=== PATIENT | male | born 1960 | race African-American/Black ===

== ENCOUNTER 2017-04-29 13:08 | Inpatient (IN) ==
--- NOTE | 2017-04-29 14:50 | XRay Report ---
History short of breath Comparison 05/23/2016 The heart is enlarged Neel there is increasing diffuse hazy right greater than left pulmonary opacities and moderate right pleural effusion. Left base is underpenetrated Impression: Right greater than left effusions and hazy underlying infiltrates or asymmetric edema. PROCEDURE INTERPRETED AT [facility] DEPARTMENT OF RADIOLOGY Final Report Signed by: Dr. Lyndsey Bain
[2017-04-29 15:01] LABS: Basophils % 0.6 % (0.0-0.8); Eosinophils # 0.1 10*3/uL (0.0-0.87); Eosinophils % 1.5 % (0.00-10.9); Hematocrit 26.6 VOL% (42.0-52.0); Hemoglobin 8.7 GM/DL (14.0-18.0); Immature Granulocytes % 0.6 %; Immature Granulocytes Absolute 0.03 #; Lymphocytes # 0.6 10*3/uL (1.4-4.0); Lymphocytes % 10.9 % (21.2-54.2); Mean Corpuscular HGB Conc 32.7 GM/DL (32-36); Mean Corpuscular Hemoglobin 22 PG (27-34); Mean Corpuscular Volume 66.7 FL (87-102); Mean Platelet Volume 10.3 FL (9.6-12.0); Monocytes # 0.8 10*3/uL (0.11-0.8); Monocytes % 14.2 % (1.7-12.7); Neutrophils # 3.9 10*3/uL (1.4-7.4); Neutrophils % 72.2 % (38.7-73.9); Platelet Count 204 T/CUMM (130-400); Red Blood Count 3.99 MC/CUMM (3.8-5.5); Red Cell Distribution Width 17.7 % (9.3-17.3); White Blood Count 5.4 T/CUMM (4-12)
[2017-04-29 15:17] LABS: Giant Platelets Few; Hypochromasia 1+; Platelet Estimate Adequate
[2017-04-29 15:18] LABS: Microcytosis Slight; Ovalocytes Slight
[2017-04-29 15:37] LABS: Albumin 2.2 G/DL (3.4-5.0); Bilirubin,Total 0.5 MG/DL (0.2-1.0); Total Protein 6.1 G/DL (6.4-8.3)
[2017-04-29 15:38] LABS: Osmolality,Calculated 289.7 MOS/KG (273-304)
--- NOTE | 2017-04-29 15:52 | Emergency Department Note ---
IAurelio Emily, am scribing for, and in the presence of, Monroe Santacruz MD 14:20. Neeta Varner Phillip K, MD, personally performed the services described in this documentation, ascribed by Shawna Carey in my presence, and it is both accurate and complete [phone] . Arrival - Arrival Chief Complaint: Non-Specific Stated Complaint: pulmonary edema ED Nursing Triage Note: c/o swelling in lt arm onset friday night. pt also has swelling to testicles onset in january Mode of Arrival: Ambulatory Limitations: No Limitations Source: Patient Time Seen by Provider: 04/29/17 14:05 - History of Present Illness HPI Narrative: Pt is a 56 y/o male who came to ED with c/o swelling in extremities, abdomen, and genitals diffusely that started suddenly on Friday. Pt called Dr. Gordon and was told to come to ED. Pt states he is taking lasix and has mild SOB currently. Pt was seen in 2015 with SOB and thought was DVT but results showed by Dr. Gordon: Pneumonia versus CHF. He is symptomatically improved with antibiotics. * Chronic renal failure, stage IV. Renal ultrasound shows increased echogenicity. No obstruction. * Probable nephrotic syndrome. Serum creatinine 1.5. This likely accounts for much of his peripheral edema and pleural effusions. 24 hour urine pending * CHF. Ejection fraction 30-35%. PMHx of NIDDM, Asthma. [place] Ch in May while hospitalized. Onset (ago): day(s) Consistency: constant Severity: moderate Severity scale (1-10): 6 Quality: fullness Allergies/Adverse Reactions: Allergies Allergy/AdvReac Type Severity Reaction Status Date / Time No Known Allergies Allergy Verified 05/21/16 10:15 Home Medications: Home Medications Medication Instructions Recorded Confirmed Type Carvedilol [Coreg] 6.25 mg PO BID #60 tablet 05/25/16 04/29/17 Rx Aspirin 325 mg PO QAM 04/29/17 04/29/17 History Cinnamon Bark [Cinnamon] 1,000 mg PO QAM 04/29/17 04/29/17 History Ferrous Sulfate 325 mg PO QAM 04/29/17 04/29/17 History Furosemide Tab [Lasix Tab] 80 mg PO DAILY 04/29/17 04/29/17 History Hydralazine HCl 50 mg PO TID 04/29/17 04/29/17 History Isosorbide Mononitrate [Imdur] 30 mg PO DAILY 04/29/17 04/29/17 History Turmeric/Turmeric Ext/Pepr Ext 1 each PO QAM 04/29/17 04/29/17 History [Turmeric Complex 500 mg Cap] sitaGLIPtin [Januvia] 25 mg PO DAILY 04/29/17 04/29/17 History Review of System - Review of System 12 point system: reviewed and no additional remarkable complaints except as stated - Review of System Constitutional: Absent: chills, fever Respiratory: Present: respiratory distress (mild SOB) Cardiovascular: Present: edema (extremities, abdomen and genitals). Absent: chest pain Gastrointestinal: Absent: abdominal pain, nausea, vomiting Musculoskeletal: Absent: arm pain, back pain Skin: Absent: rash Neurological: Absent: headache Medical,Surgical,& Family Hx - Medical History Cardio: No history of: Cardiac Dysrhythmia, Cerebrovascular Disease, CAD, Hypertension, [place], PVD, Valvular Heart Disease, Cardiovascular Problems Psychological: No history of: Anxiety Disorders, Depression Neurology: No history of: Cerebrovascular Accident, Migraine, Parkinson's Disease, Peripheral Neuropathy, Seizures, TIA HEENT: No history of: Ear Problem Endocrine: History of: Diabetes Mellitus (NIDDM) (PO metformin ) Rheumatology: No history of;: Fibromyalgia, Gout, Rheumatoid Arthritis, Systemic Lupus Erythematosus Respiratory: History of: Asthma, Pneumonia No history of: COPD, Obstructive Sleep Apnea, Pulmonary Embolism Renal: No history of: Dialysis, Renal Failure, Renal Problems Genitourinary: No history of: Kidney Stones, Prostate Problems, Problems Gastrointestinal: No history of: Bowel Obstruction, GERD, Hepatitis, Liver Problems Musculoskeletal: No history of: Back/Neck Problems, Degenerative Disk Disease, Osteoporosis Hematology: No history of: Blood Transfusion Reaction, Bleeding Problems, Clotting Problems, Sickle Cell Disease, Hematologic Cancer Other: No history of: Anesthesia Reactions, Anaphylaxis, Cancer - Surgical History Abdominal Surgeries: Patient denies: Abdominal Surgery - Family History Family History: Reports;: Family Diabetes (mother) - Social History Smoking Status: Never smoker Frequency of Alcohol Use: None Type of Drug Use: None Marital Status: Single Lives With:: Alone Functional capacity: independent ambulation Exam Vital Signs: Vital Signs Temperature 97.5 F L 04/29/17 13:15 Pulse Rate 92 H 04/29/17 13:15 Respiratory Rate 22 04/29/17 14:10 Blood Pressure 153/84 04/29/17 13:15 O2 Sat by Pulse Oximetry 96 04/29/17 13:15 - General General appearance: alert, in no apparent distress - Head Head exam: Present: atraumatic, normocephalic - Eye Eye exam: Present: PERRL, EOMI - ENT ENT exam: Present: mucous membranes moist. Absent: mucous membranes dry - Neck Neck exam: Present: full ROM - Chest Chest inspection: Present: symmetric chest wall rise - Respiratory Respiratory exam: Present: rales (bibasliar rales on right). Absent: normal lung sounds bilaterally (decreased breath sounds on right) - Cardiovascular Cardiovascular exam: Present: regular rate, normal rhythm, normal heart sounds - Extremities Exam Extremities exam: Present: full ROM, pedal edema (+4 pitting edema at bilateral lower extremities to waist, abdominal wall, penis, and scrotum) - Neurological Exam Neurological exam: Present: alert, oriented X3, CN II-XII intact. Absent: motor sensory deficit - Psychiatric Psychiatric exam: Present: normal affect, normal mood - Skin Skin exam: Present: warm, dry Course Course Narrative: Patient discussed with the hospitalist. Results - Labs CBC & BMP: 04/29/17 14:45 04/29/17 14:45 Lab Results: I have reviewed the patients labs Labs: Laboratory Tests 04/29/17 14:45 WBC 5.4 RBC 3.99 Hgb 8.7 L Hct 26.6 L MCV 66.7 L MCH 22 L RDW 17.7 H Plt Count 204 Lymph % (Auto) 10.9 L [place] % (Auto) 14.2 H Lymph # (Auto) 0.6 L Platelet Estimate Adequate Giant Platelets Few Immature Plt Fraction 2.6 Hypochromasia 1+ Microcytosis Slight Ovalocytes Slight Laboratory Tests 04/29/17 04/29/17 14:45 14:45 Sodium 138 Potassium 5.0 Chloride 108 H Carbon Dioxide 22 Anion Gap 13.0 BUN 57 H Creatinine 4.40 H GFR Calculation 22 Calcium 8.0 L ALT 12 L Alkaline Phosphatase 120 H B-Natriuretic Peptide 2804 H Total Protein 6.1 L Albumin 2.2 L Globulin 3.9 H Albumin/Globulin Ratio 0.5 L - Diagnostic Findings Procedure: Chest x-ray: report reviewed by me (Right greater than left effusions and hazy underlying infiltrates or asymmetric edema.) Disposition Clinical Impression: Nephrotic syndrome, Anasarca, Chronic renal failure, stage 4 (severe), Hypoalbuminemia Case discussed with: patient Disposition: Still a Patient Condition: Guarded Additional Instructions: Admit to the hospitalist.
--- NOTE | 2017-04-29 16:53 | Hospitalist History & Physical ---
<Hazel Estevez - Last Filed: 04/29/17 16:46> Assessment and Plan (1) Chronic renal failure, stage 4 (severe) Status: Acute Assessment and plan: Consult nephrology. Avoid nephrotoxic agents. Daily bmps. Current Visit: Yes (2) Non-insulin dependent type 2 diabetes mellitus Status: Chronic Assessment and plan: accuchecks achs. SSI. Current Visit: No (3) Anasarca Status: Acute Current Visit: Yes (4) Hypertension Status: Chronic Assessment and plan: Restart home meds. Current Visit: No Qualifiers: Hypertension type: essential hypertension Qualified Code(s): I10 - Essential (primary) hypertension (5) CHF (congestive heart failure) Status: Acute Assessment and plan: BNP 2804. Consult cardiology. Careful diuresis because of renal failure. Recheck in the am. Strict I&Os. Current Visit: Yes (6) Peripheral edema Status: Chronic Assessment and plan: Current Visit: No History of Present Illness Chief complaint: swelling History of present illness: Mr. Mondragon is a 56 year old black male with a history of hypertension, dm, chf , chronic renal failure, and pneumonia that presented to the ED today with complaints of arm, testicle, and bilateral legs. Pt. is accompanied by his sister. Patient states he has been experiencing swelling in his extremities since December, genitals since January, and arm since yesterday. Pt. states he was seen by his PCP Dr. Hinkle yesterday and he told him to see his balance wheel facer Dr. Gordon. He called Dr. Gordon today and the patient was directed to come to the ED. Pt. states he was seen by Dr. Gordon last week and his creatinine was 3.1. Today's patients only complaint is the swelling which he states is "uncomfortable". Pt. reports mild shortness of breath on exertion. Pt. denies all other symptoms. CXR showed 'right greater than left effusion and hazy underlying infilrates or asymmetric edema'. Labs revealed h&h of 8.7/26.6, bun/ creatinine 57/4.4, and BNP of 2804. Pt's case has been discussed with Dr. De León and pt will be admitted to our service. Home Medications Medication Instructions Recorded Confirmed Type Carvedilol [Coreg] 6.25 mg PO BID #60 tablet 05/25/16 04/29/17 Rx Aspirin 325 mg PO QAM 04/29/17 04/29/17 History Cinnamon Bark [Cinnamon] 1,000 mg PO QAM 04/29/17 04/29/17 History Ferrous Sulfate 325 mg PO QAM 04/29/17 04/29/17 History Furosemide Tab [Lasix Tab] 80 mg PO BID 04/29/17 04/29/17 History Hydralazine HCl 50 mg PO TID 04/29/17 04/29/17 History Isosorbide Mononitrate [Imdur] 30 mg PO DAILY 04/29/17 04/29/17 History Turmeric/Turmeric Ext/Pepr Ext 1 each PO QAM 04/29/17 04/29/17 History [Turmeric Complex 500 mg Cap] sitaGLIPtin [Januvia] 25 mg PO DAILY 04/29/17 04/29/17 History Allergies Allergy/AdvReac Type Severity Reaction Status Date / Time No Known Allergies Allergy Verified 05/21/16 10:15 Medical,Surgical,& Family Hx - Medical History Cardio: No history of: Cardiac Dysrhythmia, Cerebrovascular Disease, CAD, Hypertension, [place], PVD, Valvular Heart Disease, Cardiovascular Problems Psychological: No history of: Anxiety Disorders, Depression Neurology: No history of: Cerebrovascular Accident, Migraine, Parkinson's Disease, Peripheral Neuropathy, Seizures, TIA HEENT: No history of: Ear Problem Endocrine: History of: Diabetes Mellitus (NIDDM) (PO metformin ) Rheumatology: No history of;: Fibromyalgia, Gout, Rheumatoid Arthritis, Systemic Lupus Erythematosus Respiratory: History of: Asthma, Pneumonia No history of: COPD, Obstructive Sleep Apnea, Pulmonary Embolism Renal: No history of: Dialysis, Renal Failure, Renal Problems Genitourinary: No history of: Kidney Stones, Prostate Problems, Problems Gastrointestinal: No history of: Bowel Obstruction, GERD, Hepatitis, Liver Problems Musculoskeletal: No history of: Back/Neck Problems, Degenerative Disk Disease, Osteoporosis Hematology: No history of: Blood Transfusion Reaction, Bleeding Problems, Clotting Problems, Sickle Cell Disease, Hematologic Cancer Other: No history of: Anesthesia Reactions, Anaphylaxis, Cancer - Surgical History Abdominal Surgeries: Patient denies: Abdominal Surgery - Family History Family History: Reports;: Family Diabetes (mother) - Social History Smoking Status: Never smoker Frequency of Alcohol Use: None Type of Drug Use: None Exam - Constitutional Vitals: Period Temp Pulse Resp BP Sys/Gray Pulse Ox Last 24 Hr 97.5 F-97.5 F 78-92 18-22 127-160/83-99 95-100 General appearance: no acute distress, over weight - Head Head exam: Present: normal inspection, normocephalic - Eye Eye exam: Present: EOMI. Absent: scleral icterus Pupils: Present: MAGI. Absent: fixed - Respiratory Respiratory exam: Present: clear to auscultation bilaterally. Absent: wheezes - Cardiovascular Cardiovascular exam: Present: JVD - GI/Abdominal GI/Abdominal exam: Present: normal bowel sounds, firm. Absent: tenderness, soft - Extremities Exam Extremities exam: Present: full ROM, edema - Neurological Exam Neurological exam: Present: alert, oriented X3 - Psychiatric Psychiatric exam: Present: normal affect, normal mood - Skin Skin exam: Present: normal color, warm, dry Results - Labs CBC & BMP: 04/29/17 14:45 04/29/17 14:45 Lab Results: I have reviewed the past 24 hour labs <Wilbert De León - Last Filed: 04/30/17 07:19> History of Present Illness History of present illness: Mr. Mondragon is a 56 year old male who is being admitted to the hospital with acute on chronic right and left heart congestive heart failure and acute on chronic renal failure. I have interviewed and examined the patient and reviewed all available laboratory and radiographic test results. I agree with the assessment and plans of Leila GARCIA. Mr. Mondragon is being admitted to the hospital. He will be treated with intravenous furosemide. Cardiology and nephrology have been consulted. Exam - Constitutional Vitals: Period Temp Pulse Resp BP Sys/Gray Pulse Ox Last 24 Hr 97.4 F-97.8 F 78-95 18-22 127-168/83-106 94-100 Results - Labs CBC & BMP: 04/30/17 04:48 04/30/17 04:48
[2017-04-29 17:49] LABS: Apearance,Urine CLEAR (Clear); Bacteria,Urine Occasional /HPF (Few); Bilirubin,Urine Negative (Negative); Blood, Urine Small mg/dL (Negative); Glucose,Urine (UA) 150 mg/dL (Negative); Ketones,Urine Negative (Negative); Mucus,Urine Occasional /LPF (Occasional); Nitrite,Urine Negative (Negative); Protein,Urine >=500 MG/DL; RBC,Urine 21 /HPF (0-4); Squamous Epithelial Cell,Urine Occasional /HPF (0-10); Urine Color Yellow (Yellow); Urine Specific Gravity 1.011 (1.001-1.035); Urine Urobilinogen < 2.0 EU/DL (0.2-1.0); WBC,Urine 1 /HPF (0-6)
[2017-04-29] MEDS ORDERED: ONDANSETRON 4 MG/2 ML VIAL IV PRN (18:05)
[2017-04-29] MEDS ORDERED: DEXTROSE 50% 25 GM/50 ML VIAL IV PRN ×2 (18:05)
[2017-04-29] MEDS ORDERED: GLUCAGON 1 MG VIAL IM PRN ×2 (18:05)
[2017-04-29] MEDS: FUROSEMIDE 40 MG/4 ML VIAL IV SCH (18:17)
[2017-04-29] MEDS: INSULIN LISPRO 100 UNIT/ML SUBCUT SCH (20:06)
[2017-04-29] MEDS: CARVEDILOL 6.25 MG TABLET PO SCH (20:07)
[2017-04-30 05:17] LABS: Basophils % 0.6 % (0.0-0.8); Eosinophils # 0.1 10*3/uL (0.0-0.87); Eosinophils % 1.8 % (0.00-10.9); Hematocrit 26.1 VOL% (42.0-52.0); Hemoglobin 8.3 GM/DL (14.0-18.0); Immature Granulocytes % 0.6 %; Immature Granulocytes Absolute 0.03 #; Lymphocytes # 0.6 10*3/uL (1.4-4.0); Lymphocytes % 12.3 % (21.2-54.2); Mean Corpuscular HGB Conc 31.8 GM/DL (32-36); Mean Corpuscular Hemoglobin 21 PG (27-34); Mean Corpuscular Volume 67.4 FL (87-102); Mean Platelet Volume 10.7 FL (9.6-12.0); Monocytes # 0.9 10*3/uL (0.11-0.8); Monocytes % 16.6 % (1.7-12.7); Neutrophils # 3.5 10*3/uL (1.4-7.4); Neutrophils % 68.1 % (38.7-73.9); Platelet Count 222 T/CUMM (130-400); Red Blood Count 3.87 MC/CUMM (3.8-5.5); Red Cell Distribution Width 17.7 % (9.3-17.3); White Blood Count 5.1 T/CUMM (4-12)
[2017-04-30] MEDS: FUROSEMIDE 40 MG/4 ML VIAL IV SCH ×4 (05:20→21:31)
[2017-04-30 05:56] LABS: Eosinophils 5 % (0-10); Lymphocytes 8 % (20-55); Segmented Neutrophils 77 % (50-85); Total Cells Counted 100
[2017-04-30 05:57] LABS: Burr Cells Slight; Elliptocytes Few; Giant Platelets Few; Hypochromasia 1+; Microcytosis Slight; Platelet Estimate Adequate
[2017-04-30 06:02] LABS: Calcium 8.5 MG/DL (8.5-10.1); Magnesium 1.9 MG/DL (1.8-2.4); Osmolality,Calculated 292.4 MOS/KG (273-304); Potassium 4.4 MMOL/L (3.5-5.1); Risk Ratio 3.61; Thyroid Stimulating Hormone 2.18 uIU/ml (0.358-3.74); VLDL CHOLESTEROL 10.2 MG/DL
--- NOTE | 2017-04-30 06:51 | Physician Query Form ---
CLICK EDIT DOCUMENT TO SELECT QUERY ANSWER --> OK --> SIGN Gale Khan RN, CCDS Certified Clinical Lead Military Analyst W) [phone] (f) [phone] [email or web address]: Make your selection(s) from the choices in EACH section by typing an "x" and enter comments in the comment section. Please use your independent medical judgment in providing your response. This request does not imply that any particular answer is desired or expected. CLINICAL INDICATORS: (Providers should not edit this section) The medical record indicates that the patient was admitted with CHF (Acute), BNP of 2804#, "c/o swelling in extremities", "Mild SOB", AND the patient was treated with IV Lasix. Please provide further specificity regarding CHF. ACUITY: ( ) Acute ( ) Chronic ( X) Acute on Chronic ( ) Clinically unable to determine TYPE: ( ) Systolic (HFrEF - heart failure with reduced systolic function/EF) ( ) Diastolic (HFpEF - heart failure with preserved systolic function/EF) ( X) Combined Systolic/Diastolic ( ) Other, please specify: ( ) Clinically unable to determine ( ) Past Medical History of Systolic CHF ( ) Past Medical History of Diastolic CHF ( ) Clinically unable to determine COMMENTS: PLEASE ALSO DOCUMENT RESPONSE IN PROGRESS NOTES AND/OR DISCHARGE SUMMARY Use of terms such as suspected, likely, or probable (associated with a specific diagnosis that is being evaluated, monitored, or treated as if it exists) are acceptable and can be restated in the discharge summary if not ruled out. MTDD
--- NOTE | 2017-04-30 08:28 | Ultrasound Report ---
History is scrotal edema Grayscale, spectral Doppler, and color flow analysis performed and interpreted There is a more diffuse bilateral scrotal edema. Testicular size and echotexture is normal bilaterally No intratesticular mass is seen The epididymides are normal in size There is symmetric color flow to both testicles Impression: Marked diffuse scrotal edema without testicular abnormality seen PROCEDURE INTERPRETED AT [facility] DEPARTMENT OF RADIOLOGY Final Report Signed by: Dr. Lyndsey Bain
[2017-04-30] MEDS ORDERED: ASPIRIN 325 MG TABLET PO SCH (09:00)
[2017-04-30] MEDS: ISOSORBIDE MONONITRATE 30 MG TABLET PO SCH (09:20)
[2017-04-30] MEDS: CARVEDILOL 6.25 MG TABLET PO SCH (09:20)
[2017-04-30] MEDS: FERROUS SULFATE 325 MG TABLET PO SCH (09:20)
[2017-04-30] MEDS: INSULIN LISPRO 100 UNIT/ML SUBCUT SCH ×4 (09:21→21:57)
--- NOTE | 2017-04-30 09:25 | Hospitalist Progress Note ---
Assessment and Plan (1) Systolic CHF, acute on chronic Status: Acute Assessment and plan: His severe acute on chronic systolic congestive heart failure. I have increased his furosemide to 80 mg intravenous every 8 hours. He is being followed by cardiology. He will undergo a repeat echocardiogram today. Current Visit: Yes (2) Anemia Status: Chronic Assessment and plan: His hematocrit and hemoglobin are 26.1 and 8.3 respectively. They are minimally changed from yesterday. Current Visit: No Qualifiers: Anemia type: iron deficiency (3) Non-insulin dependent type 2 diabetes mellitus Status: Chronic Assessment and plan: His glucose today is 67. He is being treated with sliding scale regular insulin coverage. Current Visit: No (4) Chronic renal failure, stage 4 (severe) Status: Acute Assessment and plan: His BUN and creatinine are 58 and 4.3 respectively today. These are minimally changed from yesterday. Current Visit: Yes (5) Cardiomyopathy Status: Acute Assessment and plan: He reportedly has a previously demonstrated LVEF of 25%. Current Visit: No Qualifiers: Cardiomyopathy type: unspecified Qualified Code(s): I42.9 - Cardiomyopathy , unspecified (6) Anasarca Status: Acute Assessment and plan: Is severe edema involving both lower extremities and his scrotum. This is almost certainly secondary to right-sided congestive heart failure. His serum albumin is 2.2 which most probably exacerbates the problem. Current Visit: Yes Hospitalist: Subjective Interval history: Patient has been undergoing diuresis with intravenous furosemide. He states that he feels somewhat better than yesterday. He underwent a scrotal ultrasound confirming that his scrotum has severe edema with no other discernible lesions. He has been seen in consultation by cardiology who will follow him with me. Exam - Constitutional Vitals: Period Temp Pulse Resp BP Sys/Gray Pulse Ox Last 24 Hr 97.4 F-97.8 F 78-95 18-22 127-168/83-106 94-100 General appearance: no acute distress - Head Head exam: Present: normal inspection - Neck Neck exam: Present: normal inspection - Respiratory Respiratory exam: Present: other (Decreased bibasilar breath sounds.) - Cardiovascular Cardiovascular exam: Present: regular rate and rhythm - GI/Abdominal GI/Abdominal exam: Present: normal bowel sounds, soft, other (Nontender with no palpable masses or hepatosplenomegaly.) - Extremities Exam Extremities exam: Present: edema, other (There is persistent severe scrotal edema.) - Skin Skin exam: Present: normal color, warm, intact Results - Labs CBC & BMP: 04/30/17 04:48 04/30/17 04:48
[2017-04-30] MEDS: ENOXAPARIN 30 MG/0.3 ML SYRINGE SUBCUT SCH (09:27)
[2017-04-30] MEDS ORDERED: CARVEDILOL 6.25 MG TABLET PO ONE (09:43)
--- NOTE | 2017-04-30 10:14 | Order Completion Report ---
See report scanned to EMR
--- NOTE | 2017-04-30 11:05 | Cardiology Consult Note ---
Anusha Varner April RN, am scribing for, and in the presence of, Martita Avelar NP 09:48. Assessment and Plan - Time spent with patient Time spent with patient: Greater than 30 minutes (Due to assessment, planning, documentation, medication review) (1) Dyslipidemia Status: Chronic Assessment and plan: SEE PLAN OF CARE LISTED BELOW Current Visit: Yes (2) Obesity (BMI 30-39.9) Status: Chronic Assessment and plan: SEE PLAN OF CARE LISTED BELOW Current Visit: Yes (3) Hypertension Status: Chronic Assessment and plan: SEE PLAN OF CARE LISTED BELOW Current Visit: No Qualifiers: Hypertension type: essential hypertension Qualified Code(s): I10 - Essential (primary) hypertension (4) Non-insulin dependent type 2 diabetes mellitus Status: Chronic Assessment and plan: SEE PLAN OF CARE LISTED BELOW Current Visit: No (5) Chronic renal failure, stage 4 (severe) Status: Chronic Assessment and plan: SEE PLAN OF CARE LISTED BELOW Current Visit: Yes (6) Cardiomyopathy Status: Acute Assessment and plan: SEE PLAN OF CARE LISTED BELOW Current Visit: No Qualifiers: Cardiomyopathy type: unspecified Qualified Code(s): I42.9 - Cardiomyopathy , unspecified (7) Anasarca Status: Acute Current Visit: Yes (8) CHF (congestive heart failure) Status: Acute Assessment and plan: SEE PLAN OF CARE LISTED BELOW Current Visit: Yes Qualifiers: Congestive heart failure type: combined Congestive heart failure chronicity : acute on chronic Qualified Code(s): I50.43 - Acute on chronic combined systolic (congestive) and diastolic (congestive) heart failure History of Present Illness - Data of Consult Patient: known to practice within the last 3 years Consult date: 04/29/17 Requesting Physician: Hazel Estevez Primary care physician: Trisha Almonte - Consult Narrative Reason for consult: CHF History of present illness: VALET ATTENDANT: DR. CH PCP: DR. ALMONTE MARBLE SETTER HELPER: DR. ANTON I have seen and evaluated this patient with Kylie Tavares RN. Mrs. Tavares has acted as a scribe for me today SUMMARY: Mr. Mondragon, 56BM, has risk factors significant for: Hypertension, dyslipidemia, diabetes, obesity and sedentary lifestyle. History of chronic renal failure (stage IV), cardiomyopathy, mitral regurgitation. Admitted April 29, 2017 with anasarca including third spacing up to the lower abdominal region. This past Friday, patient reports his right arm began to swell. This is new. He has been experiencing scrotal edema since January 2017. Patient reports he always has bilateral lower extremity edema however not to this extent. On examination, he has significant swelling and possible third spacing up to his lower abdominal area. Patient was seen in cardiology clinic by Dr. Ch February 26, 2017. Patient has a known cardiomyopathy. In the fall 2015 EF was noted to be 35-40% with global hypokinesis and 1-2+ mitral regurgitation. He did not undergo cardiac catheterization at that time or initiation of DESTINEY inhibitor because of his renal insufficiency. Follow-up echocardiogram revealed some improvement in his systolic function however, repeat echocardiogram February 26, 2017 revealed worsening cardiomyopathy, MR 3-4+. Cardiac catheterization has been discussed with this patient and timing of procedure was hussein. Because of his renal insufficiency, patient was not to see nephrology in order to discuss timing. ( February 24, 2017 echocardiogram reveals: EF 15-20%, grade 4 diastolic dysfunction , moderate to severe concentric LVH, moderate to severe mitral regurgitation, PAP 40 mmHg.) ProBNP on admission 2804. This morning 3574. Creatinine 4.4. Hemoglobin hematocrit 8.3 and 26.1 respectively. EKG this morning. No need to repeat his echocardiogram. Increasing Coreg to 12.5 mg twice daily giving a "now" dose of 6.25 mg. Continue with Hydralazine/Imdur as the patient's CKD will not allow for introduction of DESTINEY. Nephrology has been consulted. Patient will benefit from cardiac catheterization at some point. Fear of worsening his renal insufficiency with dye use. Venous ultrasound of lower extremities and right upper extremity as well. Strict I&O, daily weights. Will further investigate regarding possible sleep disorder during next interview with patient. I will further discuss with Dr. Cabrera and await additional recommendations. IMPRESSION/PLAN: 1. ANASARCA -multifactorial but certainly to include acute on chronic CHF, CKD. Given the severity of his right upper extremity swelling, will rule out DVT. Also check bilateral lower extremities for DVT. Diuretics on board. Strict I&O and daily weights 2. ACUTE ON CHRONIC CHF - secondary to combined systolic dysfunction (EF 15-20 %) and diastolic dysfunction. IV Lasix, strict I&O and daily weights. Nephrology has been consulted. 3. CARDIOMYOPATHY - unknown classification at this time. He has been in the process of getting ready did for heart catheterization to further define. 4. MITRAL REGURGITATION, MODERATE TO SEVERE - continue with afterload reduction. 5. CKD, STAGE IV - Dr. Anton to evaluate patient. 6. HYPERTENSION - increased beta-yoandy with a "now" dose. Unable to use DESTINEY inhibitor for fear of worsening his CKD. 7. DYSLIPIDEMIA - LDL 87. Continue lipid-lowering agent. 8. DIABETES - sliding scale insulin with adjustments as 9. OBESITY -the merits of weight loss was thoroughly discussed with patient. CC: Wilbert De León - Home Medications and Allergies Home Medications: Home Medications Medication Instructions Recorded Confirmed Type Carvedilol [Coreg] 6.25 mg PO BID #60 tablet 05/25/16 04/29/17 Rx Aspirin 325 mg PO QAM 04/29/17 04/29/17 History Cinnamon Bark [Cinnamon] 1,000 mg PO QAM 04/29/17 04/29/17 History Ferrous Sulfate 325 mg PO QAM 04/29/17 04/29/17 History Furosemide Tab [Lasix Tab] 80 mg PO BID 04/29/17 04/29/17 History Hydralazine HCl 50 mg PO TID 04/29/17 04/29/17 History Isosorbide Mononitrate [Imdur] 30 mg PO DAILY 04/29/17 04/29/17 History Turmeric/Turmeric Ext/Pepr Ext 1 each PO QAM 04/29/17 04/29/17 History [Turmeric Complex 500 mg Cap] sitaGLIPtin [Januvia] 25 mg PO DAILY 04/29/17 04/29/17 History Allergies/Adverse Reactions: Allergies Allergy/AdvReac Type Severity Reaction Status Date / Time No Known Allergies Allergy Verified 05/21/16 10:15 Review of systems: REVIEW OF SYSTEMS: - Constitutional Constitutional: Present: Fatigue. Absent: syncope, anorexia, night sweats - EENT Eyes: Absent: blurry vision, loss of vision, diplopia Ears: Absent: decreased hearing, ear pain, ear discharge - Cardiovascular Cardiovascular: Denies: chest pain with exertion, palpitations. Absent: chest pain with deep breath - Respiratory Respiratory: Present: Only minimal GARCES, but denies cough. Absent: wheezing, hemoptysis, change in phlegm color - Gastrointestinal Gastrointestinal: Denies: constipation. Increasing girth. Absent: abdominal pain, hematemesis, hematochezia, melena, change in bowel habits, nausea - Genitourinary Genitourinary: Scrotal swelling since June 2017. Absent: difficulty urinating, dysuria, urinary hesitancy, flank pain - Musculoskeletal Musculoskeletal: Present: back pain Absent: joint swelling, muscle cramps, muscle weakness - Neurological Neurological: Present: normal gait without frequent falls. Absent: dizziness, hemiparesis - Psychiatric Psychiatric: Absent: anxiety, depression, difficulty concentrating - Endocrine Endocrine: Present: fatigue. Absent: cold intolerance, heat intolerance, polyuria, polyphagia, polydipsia - Hematologic/Lymphatic Hematologic/Lymphatic: Present: easy bruising. Absent: easy bleeding -Integumentary Integumentary: Absent: lesions, rashes, skin breakdown - Constitutional Constitutional: Present: as per HPI - EENT Eyes: Present: other (Sees black spots at time). Absent: blurry vision Ears: Absent: decreased hearing, ear pain, tinnitus Nose, mouth and throat: Absent: epistaxis, headache(s), neck pain - Cardiovascular Cardiovascular: Present: edema. Absent: chest pain at rest, chest pain with activity, diaphoresis, dyspnea, dyspnea on exertion, radiating jaw, neck or arm pain, lightheadedness, orthopnea, palpitations - Respiratory Respiratory: Present: cough. Absent: dyspnea, hemoptysis, dyspnea on exertion, wheezing - Gastrointestinal Gastrointestinal: Absent: abdominal pain, constipation, diarrhea, hematemesis, hematochezia, melena, nausea, vomiting - Genitourinary Genitourinary: Absent: dysuria, hematuria - Musculoskeletal Musculoskeletal: Absent: joint swelling, limited range of motion, muscle weakness - Neurological Neurological: Absent: confusion, dizziness, frequent falls, headache(s), syncope - Psychiatric Psychiatric: Absent: anxiety, depression - Hematologic/Lymphatic Hematologic/Lymphatic: Absent: easy bleeding, easy bruising Medical,Surgical,& Family Hx - Medical History Cardio: History of: CHF, Hypertension No history of: CAD, [place] Psychological: No history of: Anxiety Disorders Endocrine: History of: Diabetes Mellitus (NIDDM) (PO metformin ) Respiratory: History of: Asthma, Pneumonia Renal: History of: Renal Problems Musculoskeletal: History of: Amputation (leflt little finger shot off when he was a child) - Surgical History Surgical History: noncontributory - Family History Family History: Reports;: Family Diabetes (mother), Family Heart Disease, Family Hypertension (Mother) - Social History Smoking Status: Never smoker Have you smoked in the last 12 months: No Frequency of Alcohol Use: None Type of Drug Use: None Lives With:: Alone Functional capacity: independent ambulation Physical Examination Vital Signs Temp Pulse Resp BP Pulse Ox 97.5 F L 92 H 20 153/84 96 04/29/17 13:15 04/29/17 13:15 04/29/17 13:15 04/29/17 13:15 04/29/17 13:15 General: [Appears well with no apparent distress.] [Pleasant and cooperative. ] [Appears comfortable.] HEENT: [PERRL, normocephalic, atraumatic. Mucous membranes moist. No jaundice noted. Conjunctiva moist and clear, sclerae anicteric] Neck: Unable to assess for JVD due to habitus. No thyromegaly or lymphadenopathy noted. No carotid bruit appreciated Cardiac: [Regular rate and rhythm.] [No obvious murmur, rub or gallop.] Lungs: [Decreased sounds throughout without wheezing. Using oxygen occasionally Abdomen: Protuberant, nontender. Third spacing noted up to the lower abdomen. No abdominal bruit or thrill noted. No masses noted. Musculoskeletal: Decreased range of motion is noted. Extremities: No clubbing, cyanosis noted. [Right upper extremity 2-3+ pitting edema. Bilateral lower extremity 4+ pitting edema with anasarca and third spacing up to his lower abdomen. Lower extremity pulses 2+. Capillary refill less than 3 seconds. Skin: No unusual lesions or rashes. No skin breakdown appreciated. Neuro: Awake, alert and oriented 3. Moves all extremities well without hemiparesis or paralysis. No essential tremor is appreciated. General: Present: Appears Well, No Apparent Distress HEENT: Present: PERRL, Mucus Membranes Moist Neck: Present: Supple Neck, Midline Trachea, No Bruit Cardiac: Present: Reg Rate and Rhythm, No Murmur Lungs: Present: Normal Breath Sounds, No Wheeze, Rales, Rhonchi Neuro: Absent: Resting Tremor, Essential Tremor Abdomen: Present: Soft, Active Bowel Sounds, Non-Tender. Absent: Distended Skin: Present: Other (Dressing noted to left foot, he states he has a blister on that foot.). Absent: Rash Musculoskeletal: Present: No Pain, Normal Range of Motion Extremities: Present: Normal Upper Extr. Pulses, Normal Lower Extr. Pulses, Edema (To right hand), +3 Edema (To bilateral lower extremities) Result/EKG - Labs CBC & BMP: 04/30/17 04:48 04/30/17 04:48 Lab Results: I have reviewed the past 24 hour labs Labs: Laboratory Results - last 24 hr 04/29/17 04/29/17 04/29/17 14:45 14:45 14:45 WBC 5.4 RBC 3.99 Hgb 8.7 L Hct 26.6 L MCV 66.7 L MCH 22 L MCHC 32.7 RDW 17.7 H Plt Count 204 MPV 10.3 Neut % (Auto) 72.2 Lymph % (Auto) 10.9 L [place] % (Auto) 14.2 H Eos % (Auto) 1.5 Baso % (Auto) 0.6 Neut # (Auto) 3.9 Lymph # (Auto) 0.6 L [place] # (Auto) 0.8 Eos # (Auto) 0.1 Baso # (Auto) 0.0 Total Counted Immature Gran % 0.6 Nucleated RBC % 0.0 Immature Gran # 0.03 Segmented Neutrophils Lymphocytes Monocytes Eosinophils Nucleated RBCs # 0.00 Platelet Estimate Adequate Giant Platelets Few Immature Plt Fraction 2.6 Hypochromasia 1+ Microcytosis Slight Ovalocytes Slight [place] Cells Elliptocytes Sodium 138 Potassium 5.0 Chloride 108 H Carbon Dioxide 22 Anion Gap 13.0 BUN 57 H Creatinine 4.40 H GFR Calculation 22 BUN/Creatinine Ratio 12.00 Glucose 87 POC Glucose Hemoglobin A1c Calculated Osmolality 289.7 Calcium 8.0 L Magnesium 2.0 Total Bilirubin 0.50 AST 33 ALT 12 L Alkaline Phosphatase 120 H B-Natriuretic Peptide 2804 H Total Protein 6.1 L Albumin 2.2 L Globulin 3.9 H Albumin/Globulin Ratio 0.5 L Triglycerides Cholesterol LDL Cholesterol VLDL Cholesterol HDL Cholesterol Heart Disease Risk Ratio Free T4 TSH 3rd Generation Urine Color Urine Appearance Urine pH Ur Specific [place] Urine Protein Urine Glucose (UA) Urine Ketones Urine Blood Urine Nitrate Urine Bilirubin Urine Urobilinogen Urine Leukocytes Urine RBC Urine WBC Ur Squamous Epith Cells Urine Bacteria Urine Mucus Ur Culture Indicated? 04/29/17 04/29/17 04/30/17 17:30 18:12 04:48 WBC 5.1 RBC 3.87 Hgb 8.3 L Hct 26.1 L MCV 67.4 L MCH 21 L MCHC 31.8 L RDW 17.7 H Plt Count 222 MPV 10.7 Neut % (Auto) 68.1 Lymph % (Auto) 12.3 L [place] % (Auto) 16.6 H Eos % (Auto) 1.8 Baso % (Auto) 0.6 Neut # (Auto) 3.5 Lymph # (Auto) 0.6 L [place] # (Auto) 0.9 H Eos # (Auto) 0.1 Baso # (Auto) 0.0 Total Counted 100 Immature Gran % 0.6 Nucleated RBC % 0.0 Immature Gran # 0.03 Segmented Neutrophils 77 Lymphocytes 8 L Monocytes 10 Eosinophils 5 Nucleated RBCs # 0.00 Platelet Estimate Adequate Giant Platelets Few Immature Plt Fraction 0.0 Hypochromasia 1+ Microcytosis Slight Ovalocytes [place] Cells Slight Elliptocytes Few Sodium Potassium Chloride Carbon Dioxide Anion Gap BUN Creatinine GFR Calculation BUN/Creatinine Ratio Glucose POC Glucose 100 Hemoglobin A1c Calculated Osmolality Calcium Magnesium Total Bilirubin AST ALT Alkaline Phosphatase B-Natriuretic Peptide Total Protein Albumin Globulin Albumin/Globulin Ratio Triglycerides Cholesterol LDL Cholesterol VLDL Cholesterol HDL Cholesterol Heart Disease Risk Ratio Free T4 TSH 3rd Generation Urine Color Yellow Urine Appearance Clear Urine pH 6.0 Ur Specific [place] 1.011 Urine Protein >=500 Urine Glucose (UA) 150 Urine Ketones Negative Urine Blood Small Urine Nitrate Negative Urine Bilirubin Negative Urine Urobilinogen < 2.0 H Urine Leukocytes Negative Urine RBC 21 Urine WBC 1 Ur Squamous Epith Cells Occasional Urine Bacteria Occasional Urine Mucus Occasional Ur Culture Indicated? Not indicated 04/30/17 04/30/17 04/30/17 04:48 04:48 04:48 WBC RBC Hgb Hct MCV MCH MCHC RDW Plt Count MPV Neut % (Auto) Lymph % (Auto) [place] % (Auto) Eos % (Auto) Baso % (Auto) Neut # (Auto) Lymph # (Auto) [place] # (Auto) Eos # (Auto) Baso # (Auto) Total Counted Immature Gran % Nucleated RBC % Immature Gran # Segmented Neutrophils Lymphocytes Monocytes Eosinophils Nucleated RBCs # Platelet Estimate Giant Platelets Immature Plt Fraction Hypochromasia Microcytosis Ovalocytes [place] Cells Elliptocytes Sodium 140 Potassium 4.4 Chloride 108 H Carbon Dioxide 22 Anion Gap 14.4 BUN 58 H Creatinine 4.30 H GFR Calculation 23 BUN/Creatinine Ratio 13.00 Glucose 67 L POC Glucose Hemoglobin A1c Calculated Osmolality 292.4 Calcium 8.5 Magnesium 1.9 Total Bilirubin AST ALT Alkaline Phosphatase B-Natriuretic Peptide 3574 H Total Protein Albumin Globulin Albumin/Globulin Ratio Triglycerides 51 Cholesterol 130 LDL Cholesterol 87.0 VLDL Cholesterol 10.2 HDL Cholesterol 36 L Heart Disease Risk Ratio 3.61 Free T4 1.15 TSH 3rd Generation 2.180 Urine Color Urine Appearance Urine pH Ur Specific [place] Urine Protein Urine Glucose (UA) Urine Ketones Urine Blood Urine Nitrate Urine Bilirubin Urine Urobilinogen Urine Leukocytes Urine RBC Urine WBC Ur Squamous Epith Cells Urine Bacteria Urine Mucus Ur Culture Indicated? 04/30/17 04/30/17 04:48 07:27 WBC RBC Hgb Hct MCV MCH MCHC RDW Plt Count MPV Neut % (Auto) Lymph % (Auto) [place] % (Auto) Eos % (Auto) Baso % (Auto) Neut # (Auto) Lymph # (Auto) [place] # (Auto) Eos # (Auto) Baso # (Auto) Total Counted Immature Gran % Nucleated RBC % Immature Gran # Segmented Neutrophils Lymphocytes Monocytes Eosinophils Nucleated RBCs # Platelet Estimate Giant Platelets Immature Plt Fraction Hypochromasia Microcytosis Ovalocytes [place] Cells Elliptocytes Sodium Potassium Chloride Carbon Dioxide Anion Gap BUN Creatinine GFR Calculation BUN/Creatinine Ratio Glucose POC Glucose 70 L Hemoglobin A1c 5.4 Calculated Osmolality Calcium Magnesium Total Bilirubin AST ALT Alkaline Phosphatase B-Natriuretic Peptide Total Protein Albumin Globulin Albumin/Globulin Ratio Triglycerides Cholesterol LDL Cholesterol VLDL Cholesterol HDL Cholesterol Heart Disease Risk Ratio Free T4 TSH 3rd Generation Urine Color Urine Appearance Urine pH Ur Specific [place] Urine Protein Urine Glucose (UA) Urine Ketones Urine Blood Urine Nitrate Urine Bilirubin Urine Urobilinogen Urine Leukocytes Urine RBC Urine WBC Ur Squamous Epith Cells Urine Bacteria Urine Mucus Ur Culture Indicated? - Diagnostic Findings Procedure: Chest x-ray: report reviewed by me - EKG EKG results: interpreted by me EKG shows: sinus rhythm Valentino Varner Bonnie E, NP, personally performed the services described in this documentation, ascribed by Klyie Tavares RN in my presence, and it is both accurate and complete .
--- NOTE | 2017-04-30 12:15 | Ultrasound Report ---
Bilateral lower extremity venous Doppler with sr scale, Spectral Doppler and color-flow analysis performed and interpreted. Indication: Edema Scanning over both common femoral veins, superficial femoral veins, greater saphenous veins and popliteal veins demonstrates normal compressibility, color flow, and augmentation. Impression: No evidence of DVT seen in either lower extremity. The Ultrasound images were captured and stored. PROCEDURE INTERPRETED AT [facility] DEPARTMENT OF RADIOLOGY Final Report Signed by: Dr. Shayna Bain
--- NOTE | 2017-04-30 12:17 | Ultrasound Report ---
Venous right upper extremity Doppler. Indication: Arm pain and swelling Grayscale, color-flow, and spectral analysis were performed and interpreted. Scanning of the right internal jugular vein, subclavian vein, axillary vein cephalic vein, brachial vein, and basilic vein demonstrate normal flow and patency throughout. Impression: No evidence of right upper extremity venous thrombosis. The Ultrasound images were captured and stored. PROCEDURE INTERPRETED AT [facility] DEPARTMENT OF RADIOLOGY Final Report Signed by: Dr. Shayna Bain
[2017-04-30] MEDS ORDERED: SKIN HEALING OINT (AQUAPHOR) 50 GM TUBE TOP PRN (15:55)
[2017-04-30] MEDS: SILVER SULFADIAZINE 1% CREAM 25 GM TUBE TOP SCH (16:57)
--- NOTE | 2017-04-30 19:09 | Nephrology Consult Note ---
History of Present Illness Chief complaint: CRF History of present illness: Mr. Mondragon is a 56 year old male with several chronic medical problems including chronic renal failure and nephrotic syndrome presented with increased lower extremity edema. He denies shortness of breath at rest but has noticed an increase in chronic edema. Home Medications Medication Instructions Recorded Confirmed Type Carvedilol [Coreg] 6.25 mg PO BID #60 tablet 05/25/16 04/29/17 Rx Aspirin 325 mg PO QAM 04/29/17 04/29/17 History Cinnamon Bark [Cinnamon] 1,000 mg PO QAM 04/29/17 04/29/17 History Ferrous Sulfate 325 mg PO QAM 04/29/17 04/29/17 History Furosemide Tab [Lasix Tab] 80 mg PO BID 04/29/17 04/29/17 History Hydralazine HCl 50 mg PO TID 04/29/17 04/29/17 History Isosorbide Mononitrate [Imdur] 30 mg PO DAILY 04/29/17 04/29/17 History Turmeric/Turmeric Ext/Pepr Ext 1 each PO QAM 04/29/17 04/29/17 History [Turmeric Complex 500 mg Cap] sitaGLIPtin [Januvia] 25 mg PO DAILY 04/29/17 04/29/17 History Allergies Allergy/AdvReac Type Severity Reaction Status Date / Time No Known Allergies Allergy Verified 05/21/16 10:15 Medical,Surgical,& Family Hx - Medical History Cardio: History of: CHF, Hypertension, Cardiovascular Problems No history of: Cardiac Dysrhythmia, Cerebrovascular Disease, CAD, [place], PVD, Valvular Heart Disease Psychological: No history of: Anxiety Disorders, Depression Neurology: No history of: Brain Aneurysm, Cerebral Hemorrhage, Cerebrovascular Accident , Cerebral Palsy, Migraine, Multiple Sclerosis, Parkinson's Disease, Peripheral Neuropathy, Seizures, TIA, Vertigo, Neurologocal Cancer HEENT: No history of: Ear Problem Endocrine: History of: Diabetes Mellitus (NIDDM) (PO metformin ) Rheumatology: No history of;: Fibromyalgia, Gout, Rheumatoid Arthritis, Systemic Lupus Erythematosus Respiratory: History of: Asthma, Pneumonia No history of: COPD, Obstructive Sleep Apnea, Pulmonary Embolism Renal: History of: Renal Problems No history of: Dialysis, Renal Failure Genitourinary: No history of: Kidney Stones, Prostate Problems, Problems Gastrointestinal: No history of: Bowel Obstruction, GERD, Hepatitis, Liver Problems Musculoskeletal: History of: Amputation (leflt little finger shot off when he was a child) No history of: Back/Neck Problems, Degenerative Disk Disease, Osteoporosis Hematology: No history of: Blood Transfusion Reaction, Bleeding Problems, Clotting Problems, Sickle Cell Disease, Hematologic Cancer Other: No history of: Anesthesia Reactions, Anaphylaxis, Cancer - Surgical History Thoracic Surgeries: Patient denies;: Lobectomy Neurologic Surgeries: Patient denies: Brain Aneurysm, Cerebral Hemorrhage, Neurologic Surgery Abdominal Surgeries: Patient denies: Abdominal Surgery Reproductive Surgeries: Patient denies;: Genitourinary Surgery - Family History Family History: Reports;: Family Diabetes (mother), Family Heart Disease, Family Hypertension (Mother) - Social History Smoking Status: Never smoker Frequency of Alcohol Use: None Type of Drug Use: None Review of Systems 12 point system: reviewed and no additional remarkable complaints except as stated Exam - Vital Signs Vital signs: Period Temp Pulse Resp BP Sys/Gray Pulse Ox Last 24 Hr 97.5 F-97.9 F 80-95 18-20 143-174/77-105 94-97 Exam: Gen.: Alert and oriented x3. ENT: Pupils equal round reactive to light. EOMs intact. Mucous membranes moist. Neck: Supple. No JVD or bruit. Cardiovascular: Regular rate and rhythm. No murmur rub or gallop Lungs: Clear Abdomen: Soft. Nontender. Positive bowel sounds. No organomegaly Extremities: 3+ edema Results - Labs CBC & BMP: 04/30/17 04:48 04/30/17 04:48 Assessment and Plan (1) Chronic renal failure, stage 4 (severe) Status: Chronic Assessment and plan: 56-year-old man with: * CRF 4. Creatinine was 3.8 on 04/01/2017. Renal function has worsened * Anasarca. Today's weight is recorded 57 pounds higher than in my office 1 month ago. Secondary to a combination of nephrotic syndrome, low albumin, CRF, and cardiomyopathy. Monitor renal function with diuretics. May need to and IV albumin. * Cardiomyopathy * Diabetes mellitus * Hypertension Current Visit: Yes (2) Anasarca Status: Acute Current Visit: Yes (3) CHF (congestive heart failure) Status: Acute Current Visit: Yes Qualifiers: Congestive heart failure type: combined Congestive heart failure chronicity : acute on chronic Qualified Code(s): I50.43 - Acute on chronic combined systolic (congestive) and diastolic (congestive) heart failure (4) Cardiomyopathy Status: Acute Current Visit: Yes Qualifiers: Cardiomyopathy type: unspecified Qualified Code(s): I42.9 - Cardiomyopathy , unspecified (5) Nephrotic syndrome Status: Acute Current Visit: Yes (6) Anemia Status: Chronic Current Visit: Yes Qualifiers: Anemia type: iron deficiency
--- NOTE | 2017-04-30 19:29 | Order Completion Report ---
See report scanned to EMR
[2017-04-30] MEDS: ATORVASTATIN 10 MG TABLET PO SCH (21:31)
[2017-04-30] MEDS: CARVEDILOL 12.5 MG TABLET PO SCH (21:31)
[2017-05-01 05:32] LABS: Basophils % 0.6 % (0.0-0.8); Eosinophils # 0.1 10*3/uL (0.0-0.87); Eosinophils % 2.2 % (0.00-10.9); Hematocrit 25.1 VOL% (42.0-52.0); Hemoglobin 8.1 GM/DL (14.0-18.0); Immature Granulocytes % 0.2 %; Immature Granulocytes Absolute 0.01 #; Lymphocytes # 0.6 10*3/uL (1.4-4.0); Lymphocytes % 13.8 % (21.2-54.2); Mean Corpuscular HGB Conc 32.3 GM/DL (32-36); Mean Corpuscular Hemoglobin 21 PG (27-34); Mean Corpuscular Volume 65.9 FL (87-102); Mean Platelet Volume 11.6 FL (9.6-12.0); Monocytes # 0.8 10*3/uL (0.11-0.8); Monocytes % 16.3 % (1.7-12.7); Neutrophils # 3.1 10*3/uL (1.4-7.4); Neutrophils % 66.9 % (38.7-73.9); Platelet Count 239 T/CUMM (130-400); Red Blood Count 3.81 MC/CUMM (3.8-5.5); Red Cell Distribution Width 17.2 % (9.3-17.3); White Blood Count 4.7 T/CUMM (4-12)
[2017-05-01 05:55] LABS: Eosinophils 12 % (0-10); Lymphocytes 13 % (20-55); Platelet Estimate Adequate; Segmented Neutrophils 65 % (50-85); Total Cells Counted 100
[2017-05-01 05:56] LABS: Burr Cells Slight; Giant Platelets Few; Hypochromasia 1+; Microcytosis Slight; Ovalocytes Slight
[2017-05-01 05:59] LABS: Osmolality,Calculated 290.5 MOS/KG (273-304); Potassium 4.4 MMOL/L (3.5-5.1)
--- NOTE | 2017-05-01 07:50 | Hospitalist Progress Note ---
Assessment and Plan (1) Systolic CHF, acute on chronic Status: Resolved Assessment and plan: He has severe acute on chronic systolic congestive heart failure. He is presently receiving furosemide 80 mg intravenous every 8 hours. As noted above echocardiography demonstrated LV EF 45%, mild to moderate pericardial effusion with no evidence of cardiac tamponade, and a left pleural effusion. He is being followed by cardiology. I plan to continue intravenous furosemide diuresis. Current Visit: No (2) Anemia Status: Chronic Assessment and plan: His hematocrit and hemoglobin are 25.1 and 8.1 respectively. They are minimally changed from yesterday. Current Visit: Yes Qualifiers: Anemia type: iron deficiency (3) Non-insulin dependent type 2 diabetes mellitus Status: Chronic Assessment and plan: His glucose today is 69. He is being treated with sliding scale regular insulin coverage. Current Visit: Yes (4) Chronic renal failure, stage 4 (severe) Status: Chronic Assessment and plan: His BUN and creatinine are 57 and 4.4 respectively today. These are minimally changed from yesterday. He is being followed by nephrology. Current Visit: Yes (5) Cardiomyopathy Status: Acute Assessment and plan: Echocardiogram during this hospitalization demonstrated LV EF 45%, improved from the previous 25% obtained in January 2017. Current Visit: Yes Qualifiers: Cardiomyopathy type: unspecified Qualified Code(s): I42.9 - Cardiomyopathy , unspecified (6) Anasarca Status: Acute Assessment and plan: His generalized edema is significantly improved with diuresis there was only mild edema of his legs and moderate edema of his scrotum at this time. Current Visit: Yes Hospitalist: Subjective Interval history: Mr. Mondragon is doing well. He continues diuresis with intravenous furosemide. He is not experiencing shortness of breath or chest pain. He notes significant decrease of the swelling of his legs and scrotum. An echocardiogram demonstrated him to have mild left ventricular systolic dysfunction with LVEF 45% mild to moderate pericardial effusion with no evidence of cardiac tamponade, mild LVH, mild aortic valve sclerosis, and left pleural effusion. Exam - Constitutional Vitals: Period Temp Pulse Resp BP Sys/Gray Pulse Ox Last 24 Hr 97.3 F-98.2 F 80-87 18-20 141-174/77-105 96-97 General appearance: no acute distress - Head Head exam: Present: normal inspection - Neck Neck exam: Present: normal inspection - Respiratory Respiratory exam: Present: clear to auscultation bilaterally - Cardiovascular Cardiovascular exam: Present: regular rate and rhythm - GI/Abdominal GI/Abdominal exam: Present: normal bowel sounds, soft, other (Nontender with no palpable masses or hepatosplenomegaly.) - Extremities Exam Extremities exam: Present: edema (Decreased from 3+-1+.) - Skin Skin exam: Present: normal color, warm, intact Results - Labs CBC & BMP: 05/01/17 04:38 05/01/17 04:38
[2017-05-01] MEDS: INSULIN LISPRO 100 UNIT/ML SUBCUT SCH ×4 (10:12→21:10)
[2017-05-01] MEDS: FERROUS SULFATE 325 MG TABLET PO SCH (10:12)
[2017-05-01] MEDS: CARVEDILOL 12.5 MG TABLET PO SCH (10:12)
[2017-05-01] MEDS: ISOSORBIDE MONONITRATE 30 MG TABLET PO SCH (10:12)
[2017-05-01] MEDS: FUROSEMIDE 40 MG/4 ML VIAL IV SCH ×3 (10:13→21:52)
[2017-05-01] MEDS: ENOXAPARIN 30 MG/0.3 ML SYRINGE SUBCUT SCH (10:13)
[2017-05-01] MEDS: SILVER SULFADIAZINE 1% CREAM 25 GM TUBE TOP SCH (10:14)
--- NOTE | 2017-05-01 12:16 | Nephrology Progress Note ---
Nephrology - PN: Subj Interval history: He denies shortness of breath. Edema is improving Exam (PN)-Nephrology - Vital Signs Vital signs: Period Temp Pulse Resp BP Sys/Gray Pulse Ox Last 24 Hr 97.3 F-98.2 F 82-87 18-20 141-168/80-96 96-97 Exam: Gen.: Alert and oriented x3. ENT: Pupils equal round reactive to light. EOMs intact. Mucous membranes moist. Neck: Supple. No JVD or bruit. Cardiovascular: Regular rate and rhythm. No murmur rub or gallop Lungs: Clear Abdomen: Soft. Nontender. Positive bowel sounds. No organomegaly Extremities: 2+ edema - Lab 05/01/17 04:38 05/01/17 04:38 Most recent lab results Calcium 8.0 MG/DL (8.5-10.1) L 05/01/17 04:38 Magnesium 2.0 MG/DL (1.8-2.4) 05/01/17 04:38 Assessment and Plan (1) Chronic renal failure, stage 4 (severe) Status: Chronic Assessment and plan: 56-year-old man with: * CRF 4. Creatinine was 3.8 on 04/01/2017. Renal function has remained stable since admission * Anasarca. Urine output and weight have not been recorded. Edema is subjectively improved. IV albumin will be added * Cardiomyopathy * Diabetes mellitus * Hypertension Current Visit: Yes (2) Anasarca Status: Acute Current Visit: Yes (3) CHF (congestive heart failure) Status: Acute Current Visit: Yes Qualifiers: Qualified Code(s): I50.43 - Acute on chronic combined systolic (congestive) and diastolic (congestive) heart failure (4) Cardiomyopathy Status: Acute Current Visit: Yes Qualifiers: Qualified Code(s): I42.9 - Cardiomyopathy, unspecified (5) Nephrotic syndrome Status: Acute Current Visit: Yes (6) Anemia Status: Chronic Current Visit: Yes
--- NOTE | 2017-05-01 12:31 | Cardiology Progress Note ---
Assessment and Plan - Time spent with patient Time spent with patient: Greater than 30 minutes (1) Dyslipidemia Status: Chronic Assessment and plan: SEE PLAN OF CARE LISTED BELOW Current Visit: Yes (2) Obesity (BMI 30-39.9) Status: Chronic Assessment and plan: SEE PLAN OF CARE LISTED BELOW Current Visit: Yes (3) Hypertension Status: Chronic Assessment and plan: SEE PLAN OF CARE LISTED BELOW Current Visit: Yes Qualifiers: Hypertension type: essential hypertension Qualified Code(s): I10 - Essential (primary) hypertension (4) Non-insulin dependent type 2 diabetes mellitus Status: Chronic Assessment and plan: SEE PLAN OF CARE LISTED BELOW Current Visit: Yes (5) Chronic renal failure, stage 4 (severe) Status: Chronic Assessment and plan: SEE PLAN OF CARE LISTED BELOW Current Visit: Yes (6) Cardiomyopathy Status: Acute Assessment and plan: SEE PLAN OF CARE LISTED BELOW Current Visit: Yes Qualifiers: Cardiomyopathy type: unspecified Qualified Code(s): I42.9 - Cardiomyopathy , unspecified (7) Anasarca Status: Acute Current Visit: Yes (8) CHF (congestive heart failure) Status: Acute Assessment and plan: SEE PLAN OF CARE LISTED BELOW Current Visit: Yes Qualifiers: Congestive heart failure type: combined Congestive heart failure chronicity : acute on chronic Qualified Code(s): I50.43 - Acute on chronic combined systolic (congestive) and diastolic (congestive) heart failure (9) Sleep disorder Status: Chronic Assessment and plan: SEE PLAN OF CARE LISTED BELOW Current Visit: Yes (10) Hypoalbuminemia Status: Acute Assessment and plan: SEE PLAN OF CARE LISTED BELOW Current Visit: Yes (11) Nephrotic syndrome Status: Acute Assessment and plan: SEE PLAN OF CARE LISTED BELOW Current Visit: Yes (12) Anemia Status: Chronic Assessment and plan: SEE PLAN OF CARE LISTED BELOW Current Visit: Yes Qualifiers: Anemia type: iron deficiency Cardiology - PN: Subj Interval history: DRESSING ROOM ATTENDANT: DR. CH PCP: DR. MARIN FAMILY LITERACY COORDINATOR: DR. ANTON SUMMARY: Mr. Mondragon, 56BM, has history hypertension, dyslipidemia, diabetes, obesity and sedentary lifestyle. History of chronic renal failure (stage IV), cardiomyopathy, mitral regurgitation. Admitted April 29, 2017 with anasarca including third spacing up to the lower abdominal region. He has been diagnosed with nephrotic syndrome and is followed by Dr. Anton. He is undergone a variety of testing including venous ultrasound of upper and lower extremities, both negative for DVT. Patient was seen in cardiology clinic by Dr. Ch February 26, 2017. Patient has a known cardiomyopathy. In the fall 2015 EF was noted to be 35-40% with global hypokinesis and 1-2+ mitral regurgitation. He did not undergo cardiac catheterization at that time or initiation of DESTINEY inhibitor because of his renal insufficiency. Follow-up echocardiogram revealed some improvement in his systolic function however, repeat echocardiogram February 26, 2017 revealed worsening cardiomyopathy, MR 3-4+ . Cardiac catheterization has been discussed with this patient and timing of procedure was hussein. Because of his renal insufficiency, patient was not to see nephrology in order to discuss timing. April 30, 2017 EF 45%, mild to moderate mitral regurgitation. MAY 01, 2017: Patient is followed for chronic, stable conditions to include : CKD, hypertension, dyslipidemia, cardiomyopathy. He is followed for more acute conditions including anasarca related to acute on chronic CHF, nephrotic syndrome. He denies chest pain, heaviness, tightness. Reports his shortness of breath has improved, no PND, less orthopenic. Overnight, he appears to have diuresed very well. I have asked that strict I&O and daily weights be recorded daily. Blood pressure remains suboptimally controlled and this afternoon I will increase his Coreg. Creatinine remains basically unchanged at 4.4. Giving a "now" dose of 6.25 mg. Continue with Hydralazine/Imdur as the patient' s CKD will not allow for introduction of DESTINEY. Acknowledges he snores heavily and often holds his breath when he sleeps. He does not get good quality sleep at night as he wakes so frequently. Mallampati airway class III. Certainly he could benefit from evaluation from sleep medicine will have Dr. Blanchard see him. Patient will benefit from cardiac catheterization at some point. Fear of worsening his renal insufficiency with dye use therefore this has been postponed in the past. I will further discuss with Dr. Cabrera and await additional recommendations. MAY 01, 2017 REVIEW OF SYSTEM: Cardiovascular: Denies chest pain, heaviness or tightness. Denies palpitations Pulmonary: Denies PND, orthopnea improved. Denies cough Abdomen: less distended, denies abdominal pain, nausea, vomitting. IMPRESSION/PLAN: 1. ANASARCA - multifactorial but certainly to include acute on chronic CHF, CKD, nephrotic syndrome. Has diuresed nicely as he looks much less edeamous ( no weight or intake and output recorded). Dr. Anton considering decreasing diuretic frequency and also giving Albumin. 2. ACUTE ON CHRONIC CHF - secondary to combined systolic dysfunction (EF 45) and diastolic dysfunction. IV Lasix, strict I&O and daily weights. Nephrology administering IV Albumin. 3. CARDIOMYOPATHY - unknown classification at this time. He has been in the process of getting ready did for heart catheterization to further define. 4. MITRAL REGURGITATION, MODERATE - continue with afterload reduction. 5. CKD, STAGE IV - Avoiding nephrotoxic agents such as DESTINEY Inhibitors. 6. HYPERTENSION - increased beta-yoandy with a "now" dose for better control. Unable to use DESTIENY inhibitor for fear of worsening his CKD. 7. DYSLIPIDEMIA - LDL 87. Continue lipid-lowering agent. 8. DIABETES - sliding scale insulin with adjustments as needed 9. OBESITY -the merits of weight loss was thoroughly discussed with patient. 10. SLEEP DISORDER - concerning for sleep apnea. Consult sleep medicine. Exam (Progress Note) - Constitutional Vitals: Period Temp Pulse Resp BP Sys/Gray Pulse Ox Last 24 Hr 97.3 F-98.2 F 82-87 18-20 141-168/80-96 96-97 Exam: General: [Appears well with no apparent distress.] [Pleasant and cooperative. ] [Appears comfortable.] HEENT: [PERRL, normocephalic, atraumatic. Mucous membranes moist. No jaundice noted. Conjunctiva moist and clear, sclerae anicteric] Neck: Unable to assess for JVD due to habitus. No thyromegaly or lymphadenopathy noted. No carotid bruit appreciated Cardiac: [Regular rate and rhythm.] [No obvious murmur, rub or gallop.] Lungs: [Decreased sounds throughout without wheezing. Using oxygen occasionally Abdomen: Protuberant, nontender. Third spacing noted up to the lower abdomen. No abdominal bruit or thrill noted. No masses noted. Musculoskeletal: Decreased range of motion is noted. Extremities: No clubbing, cyanosis noted. [Right upper extremity 2+ pitting edema. Left upper extremity 1-2+ edema. Bilateral lower extremity 3+ edema with anasarca and third spacing up to his lower abdomen (less prominent today). Lower extremity pulses 2+. Capillary refill less than 3 seconds. Skin: No unusual lesions or rashes. No skin breakdown appreciated. Neuro: Awake, alert and oriented 3. Moves all extremities well without hemiparesis or paralysis. No essential tremor is appreciated. Result/EKG - Labs CBC & BMP: 05/01/17 04:38 05/01/17 04:38 Lab Results: I have reviewed the past 24 hour labs Labs: Laboratory Results - last 24 hr 04/30/17 04/30/17 04/30/17 12:03 15:15 19:51 WBC RBC Hgb Hct MCV MCH MCHC RDW Plt Count MPV Neut % (Auto) Lymph % (Auto) [place] % (Auto) Eos % (Auto) Baso % (Auto) Neut # (Auto) Lymph # (Auto) [place] # (Auto) Eos # (Auto) Baso # (Auto) Total Counted Immature Gran % Nucleated RBC % Immature Gran # Segmented Neutrophils Lymphocytes Monocytes Eosinophils Nucleated RBCs # Platelet Estimate Giant Platelets Immature Plt Fraction Hypochromasia Microcytosis Ovalocytes [place] Cells Sodium Potassium Chloride Carbon Dioxide Anion Gap BUN Creatinine GFR Calculation BUN/Creatinine Ratio Glucose POC Glucose 89 104 138 H Calculated Osmolality Calcium Magnesium 05/01/17 05/01/17 05/01/17 04:38 04:38 07:13 WBC 4.7 RBC 3.81 Hgb 8.1 L Hct 25.1 L MCV 65.9 L MCH 21 L MCHC 32.3 RDW 17.2 Plt Count 239 MPV 11.6 Neut % (Auto) 66.9 Lymph % (Auto) 13.8 L [place] % (Auto) 16.3 H Eos % (Auto) 2.2 Baso % (Auto) 0.6 Neut # (Auto) 3.1 Lymph # (Auto) 0.6 L [place] # (Auto) 0.8 Eos # (Auto) 0.1 Baso # (Auto) 0.0 Total Counted 100 Immature Gran % 0.2 Nucleated RBC % 0.0 Immature Gran # 0.01 Segmented Neutrophils 65 Lymphocytes 13 L Monocytes 10 Eosinophils 12 H Nucleated RBCs # 0.00 Platelet Estimate Adequate Giant Platelets Few Immature Plt Fraction 0.0 Hypochromasia 1+ Microcytosis Slight Ovalocytes Slight [place] Cells Slight Sodium 139 Potassium 4.4 Chloride 108 H Carbon Dioxide 23 Anion Gap 12.4 BUN 57 H Creatinine 4.40 H GFR Calculation 23 BUN/Creatinine Ratio 12.00 Glucose 69 L POC Glucose 79 Calculated Osmolality 290.5 Calcium 8.0 L Magnesium 2.0 05/01/17 11:33 WBC RBC Hgb Hct MCV MCH MCHC RDW Plt Count MPV Neut % (Auto) Lymph % (Auto) [place] % (Auto) Eos % (Auto) Baso % (Auto) Neut # (Auto) Lymph # (Auto) [place] # (Auto) Eos # (Auto) Baso # (Auto) Total Counted Immature Gran % Nucleated RBC % Immature Gran # Segmented Neutrophils Lymphocytes Monocytes Eosinophils Nucleated RBCs # Platelet Estimate Giant Platelets Immature Plt Fraction Hypochromasia Microcytosis Ovalocytes [place] Cells Sodium Potassium Chloride Carbon Dioxide Anion Gap BUN Creatinine GFR Calculation BUN/Creatinine Ratio Glucose POC Glucose 94 Calculated Osmolality Calcium Magnesium - Diagnostic Findings Procedure: Chest x-ray: report reviewed by me, Ultrasound: report reviewed by me (Venous USs, echo) - EKG EKG results: interpreted by me EKG shows: sinus rhythm
--- NOTE | 2017-05-01 13:04 | Sleep Medicine Consult ---
Assessment and Plan (1) Sleep disorder Status: Chronic Assessment and plan: This patient does have significant sleep-related issues that include insufficient sleep and poor sleep hygiene. He will need follow-up in the sleep clinic after discharge to work on sleep schedule. I am also quite concerned about obstructive sleep apnea being a contributing factor to his heart failure. He would certainly be at risk for primary central sleep apnea related to the severity of his cardiomyopathy. I did speak with him about his sleep schedule and the importance of consolidating his sleep time into a regular schedule. Prior to his illness, and when he was younger, he would sleep 7-8 hours a night and that is likely what he should be getting now. He may benefit from melatonin 2-5 mg at bedtime nightly to help with achievement of a normal sleep schedule. We will set him up for outpatient sleep study after discharge and follow-up with him. I expressed the importance of follow-up in sleep clinic given the complexity of his sleep related issues and his comorbidities. Current Visit: Yes (2) CHF (congestive heart failure) Status: Acute Assessment and plan: Untreated sleep apnea certainly could be a contributing factor or an exacerbating factor to heart failure, whether systolic or diastolic in nature. Treating his sleep apnea can help with management of his CHF. Current Visit: Yes Qualifiers: Congestive heart failure type: combined Congestive heart failure chronicity : acute on chronic Qualified Code(s): I50.43 - Acute on chronic combined systolic (congestive) and diastolic (congestive) heart failure History of Present Illness Chief complaint: Sleep apnea History of present illness: Mr. Mondragon is a 56 year old male admitted with recurrent congestive heart failure related primarily to manifestation with symptoms of generalized edema including his legs, arms, and genitalia. He has had this problem in the past. He has a known cardiomyopathy and most recent echo showed EF of 15-20%. He previously worked nights and states he only gets about 2-3 hours of sleep a day. He has been working days for the past year and usually sleeps from 4:00 in the afternoon until about 7 at night. After that, he sits in his recliner and watches TV throughout the night. He has to be at work by 9 AM. He does snore loudly but is never been told that he stops breathing during his sleep. He denies any restlessness of his legs or leg jerks. His mother does have sleep apnea. Home Medications Medication Instructions Recorded Confirmed Type Carvedilol [Coreg] 6.25 mg PO BID #60 tablet 05/25/16 04/29/17 Rx Aspirin 325 mg PO QAM 04/29/17 04/29/17 History Cinnamon Bark [Cinnamon] 1,000 mg PO QAM 04/29/17 04/29/17 History Ferrous Sulfate 325 mg PO QAM 04/29/17 04/29/17 History Furosemide Tab [Lasix Tab] 80 mg PO BID 04/29/17 04/29/17 History Hydralazine HCl 50 mg PO TID 04/29/17 04/29/17 History Isosorbide Mononitrate [Imdur] 30 mg PO DAILY 04/29/17 04/29/17 History Turmeric/Turmeric Ext/Pepr Ext 1 each PO QAM 04/29/17 04/29/17 History [Turmeric Complex 500 mg Cap] sitaGLIPtin [Januvia] 25 mg PO DAILY 04/29/17 04/29/17 History Allergies Allergy/AdvReac Type Severity Reaction Status Date / Time No Known Allergies Allergy Verified 05/21/16 10:15 Review of systems: Otherwise unremarkable from a sleep medicine standpoint. He does nap frequently. Exam (Pulmonay) H&P - Constitutional Vitals: Period Temp Pulse Resp BP Sys/Gray Pulse Ox Last 24 Hr 97.3 F-98.2 F 82-87 18-20 141-168/80-96 96-97 Exam: He is alert and responsive. Pupils equal round reactive to light and accommodation. Extraocular movements intact. Oropharynx with a class III Mallampati exam. Neck is supple without adenopathy or thyromegaly. No supraclavicular adenopathy is noted. Chest with symmetrical breath sounds without focal wheeze, rhonchi, or rales. Cardiac exam reveals a regular rhythm without murmur or gallop. Abdomen soft nontender without palpable hepatosplenomegaly or mass. Extremities with pitting edema bilaterally. Neurologically, he is grossly intact. He answered all questions appropriately. Medical,Surgical,& Family Hx - Medical History Cardio: History of: CHF, Hypertension, Cardiovascular Problems No history of: Cardiac Dysrhythmia, Cerebrovascular Disease, CAD, [place], PVD, Valvular Heart Disease Psychological: No history of: Anxiety Disorders, Depression Neurology: No history of: Brain Aneurysm, Cerebral Hemorrhage, Cerebrovascular Accident , Cerebral Palsy, Migraine, Multiple Sclerosis, Parkinson's Disease, Peripheral Neuropathy, Seizures, TIA, Vertigo, Neurologocal Cancer HEENT: No history of: Ear Problem Endocrine: History of: Diabetes Mellitus (NIDDM) (PO metformin ) Rheumatology: No history of;: Fibromyalgia, Gout, Rheumatoid Arthritis, Systemic Lupus Erythematosus Respiratory: History of: Asthma, Pneumonia No history of: COPD, Obstructive Sleep Apnea, Pulmonary Embolism Renal: History of: Renal Problems No history of: Dialysis, Renal Failure Genitourinary: No history of: Kidney Stones, Prostate Problems, Problems Gastrointestinal: No history of: Bowel Obstruction, GERD, Hepatitis, Liver Problems Musculoskeletal: History of: Amputation (leflt little finger shot off when he was a child) No history of: Back/Neck Problems, Degenerative Disk Disease, Osteoporosis Hematology: No history of: Blood Transfusion Reaction, Bleeding Problems, Clotting Problems, Sickle Cell Disease, Hematologic Cancer Other: No history of: Anesthesia Reactions, Anaphylaxis, Cancer - Surgical History Thoracic Surgeries: Patient denies;: Lobectomy Neurologic Surgeries: Patient denies: Brain Aneurysm, Cerebral Hemorrhage, Neurologic Surgery Abdominal Surgeries: Patient denies: Abdominal Surgery Reproductive Surgeries: Patient denies;: Genitourinary Surgery - Family History Family History: Reports;: Family Diabetes (mother), Family Heart Disease, Family Hypertension (Mother) - Social History Smoking Status: Never smoker Frequency of Alcohol Use: None Type of Drug Use: None Results - Labs CBC & BMP: 05/01/17 04:38 05/01/17 04:38 Lab Results: I have reviewed the past 24 hour labs Labs: TSH within normal
[2017-05-01] MEDS: ALBUMIN 25% 12.5 GM in PREMIX 1 EACH IV SCH (14:12)
[2017-05-01] MEDS ORDERED: FUROSEMIDE 100 MG/10 ML VIAL ONE (20:51)
[2017-05-01] MEDS: CARVEDILOL 25 MG TABLET PO SCH (21:12)
[2017-05-01] MEDS: ATORVASTATIN 10 MG TABLET PO SCH (21:52)
[2017-05-02] MEDS: ALBUMIN 25% 12.5 GM in PREMIX 1 EACH IV SCH ×2 (03:20→14:12)
[2017-05-02 05:30] LABS: Basophils % 0.6 % (0.0-0.8); Eosinophils # 0.1 10*3/uL (0.0-0.87); Eosinophils % 2.2 % (0.00-10.9); Hematocrit 25.9 VOL% (42.0-52.0); Hemoglobin 8.2 GM/DL (14.0-18.0); Immature Granulocytes % 0.4 %; Immature Granulocytes Absolute 0.02 #; Lymphocytes # 0.7 10*3/uL (1.4-4.0); Lymphocytes % 14.9 % (21.2-54.2); Mean Corpuscular HGB Conc 31.7 GM/DL (32-36); Mean Corpuscular Hemoglobin 21 PG (27-34); Mean Corpuscular Volume 66.9 FL (87-102); Monocytes # 0.8 10*3/uL (0.11-0.8); Monocytes % 15.5 % (1.7-12.7); Neutrophils # 3.3 10*3/uL (1.4-7.4); Neutrophils % 66.4 % (38.7-73.9); Platelet Count 235 T/CUMM (130-400); Red Blood Count 3.87 MC/CUMM (3.8-5.5); Red Cell Distribution Width 17.5 % (9.3-17.3); White Blood Count 4.9 T/CUMM (4-12)
[2017-05-02 05:54] LABS: Calcium 8.1 MG/DL (8.5-10.1); Magnesium 1.7 MG/DL (1.8-2.4); Osmolality,Calculated 293.5 MOS/KG (273-304); Potassium 4.3 MMOL/L (3.5-5.1)
[2017-05-02] MEDS: INSULIN LISPRO 100 UNIT/ML SUBCUT SCH ×4 (08:17→21:11)
--- NOTE | 2017-05-02 08:19 | Hospitalist Progress Note ---
Assessment and Plan (1) Systolic CHF, acute on chronic Status: Resolved Assessment and plan: He has severe acute on chronic systolic congestive heart failure. He is presently receiving furosemide 80 mg intravenous every 8 hours. As noted above echocardiography demonstrated LV EF 45%, mild to moderate pericardial effusion with no evidence of cardiac tamponade, and a left pleural effusion. He is being followed by cardiology. I plan to continue intravenous furosemide diuresis. He is lost to date since his admission approximately 11 pounds. My goal is to remove 9 more pounds of fluid by diuresis prior to discharge. Current Visit: No (2) Anemia Status: Chronic Assessment and plan: His hematocrit and hemoglobin are 25.9 and 8.2 respectively. They are minimally changed from yesterday. Current Visit: Yes Qualifiers: Anemia type: iron deficiency (3) Non-insulin dependent type 2 diabetes mellitus Status: Chronic Assessment and plan: His glucose today is 97. He is being treated with sliding scale regular insulin coverage. Current Visit: Yes (4) Chronic renal failure, stage 4 (severe) Status: Chronic Assessment and plan: His BUN and creatinine are 61 and 4.4 respectively today. These are minimally changed from yesterday. He is being followed by nephrology. Current Visit: Yes (5) Cardiomyopathy Status: Acute Assessment and plan: Echocardiogram during this hospitalization demonstrated LV EF 45%, improved from the previous 25% obtained in January 2017. Current Visit: Yes Qualifiers: Cardiomyopathy type: unspecified Qualified Code(s): I42.9 - Cardiomyopathy , unspecified (6) Anasarca Status: Acute Assessment and plan: His generalized edema is significantly improved with diuresis. There is only mild edema of his legs and moderate edema of his scrotum at this time. Current Visit: Yes Hospitalist: Subjective Interval history: Mr. Mondragon is doing well. His lost approximately 11 pounds of weight since his admission to the hospital from diuresis. He will remain in the hospital undergoing intravenous furosemide diuresis with the goal of losing approximately 9 pounds more of weight which would return him to his baseline status. He is not presently experiencing any shortness of breath. He has been seen in consultation by Dr. Blanchard of sleep medicine for an evaluation for sleep apnea. Exam - Constitutional Vitals: Period Temp Pulse Resp BP Sys/Gray Pulse Ox Last 24 Hr 97.6 F-98.3 F 84-87 16-20 139-160/80-97 94-97 General appearance: no acute distress - Head Head exam: Present: normal inspection - Neck Neck exam: Present: normal inspection - Respiratory Respiratory exam: Present: clear to auscultation bilaterally - Cardiovascular Cardiovascular exam: Present: regular rate and rhythm - GI/Abdominal GI/Abdominal exam: Present: normal bowel sounds, soft, other (Nontender with no palpable masses or hepatosplenomegaly. There is persistent but decreased edema of the scrotum.) - Extremities Exam Extremities exam: Present: edema (There is 1+ peripheral edema. This is decreased from the 3-4+ peripheral edema at the time of admission.) - Skin Skin exam: Present: normal color, warm, intact Results - Labs CBC & BMP: 05/02/17 04:13 05/02/17 04:13
[2017-05-02] MEDS: MAGNESIUM OXIDE 400 MG TABLET PO SCH ×2 (08:24→21:19)
[2017-05-02] MEDS: FUROSEMIDE 40 MG/4 ML VIAL IV SCH ×3 (08:24→21:19)
[2017-05-02] MEDS: CARVEDILOL 25 MG TABLET PO SCH ×2 (08:24→21:19)
[2017-05-02] MEDS: ISOSORBIDE MONONITRATE 30 MG TABLET PO SCH (08:24)
[2017-05-02] MEDS: FERROUS SULFATE 325 MG TABLET PO SCH (08:24)
[2017-05-02] MEDS: SILVER SULFADIAZINE 1% CREAM 25 GM TUBE TOP SCH (08:24)
[2017-05-02] MEDS: ENOXAPARIN 30 MG/0.3 ML SYRINGE SUBCUT SCH (08:24)
--- NOTE | 2017-05-02 16:20 | Cardiology Progress Note ---
Anusha Varner April, RN, am scribing for, and in the presence of, Martita Avelar NP 16:18. Assessment and Plan - Time spent with patient Time spent with patient: Greater than 30 minutes (1) Anasarca Status: Acute Assessment and plan: SEE PLAN OF CARE LISTED BELOW Current Visit: Yes (2) CHF (congestive heart failure) Status: Acute Assessment and plan: SEE PLAN OF CARE LISTED BELOW Current Visit: Yes Qualifiers: Congestive heart failure type: combined Congestive heart failure chronicity : acute on chronic Qualified Code(s): I50.43 - Acute on chronic combined systolic (congestive) and diastolic (congestive) heart failure (3) Cardiomyopathy Status: Chronic Assessment and plan: SEE PLAN OF CARE LISTED BELOW Current Visit: Yes Qualifiers: Cardiomyopathy type: unspecified Qualified Code(s): I42.9 - Cardiomyopathy , unspecified (4) Hypoalbuminemia Status: Acute Assessment and plan: SEE PLAN OF CARE LISTED BELOW Current Visit: Yes (5) Nephrotic syndrome Status: Acute Assessment and plan: SEE PLAN OF CARE LISTED BELOW Current Visit: Yes (6) Anemia Status: Chronic Assessment and plan: SEE PLAN OF CARE LISTED BELOW Current Visit: Yes Qualifiers: Anemia type: iron deficiency (7) Chronic renal failure, stage 4 (severe) Status: Chronic Assessment and plan: SEE PLAN OF CARE LISTED BELOW Current Visit: Yes (8) Dyslipidemia Status: Chronic Assessment and plan: SEE PLAN OF CARE LISTED BELOW Current Visit: Yes (9) Hypertension Status: Chronic Current Visit: Yes Qualifiers: Hypertension type: essential hypertension Qualified Code(s): I10 - Essential (primary) hypertension (10) Non-insulin dependent type 2 diabetes mellitus Status: Chronic Assessment and plan: SEE PLAN OF CARE LISTED BELOW Current Visit: Yes (11) Obesity (BMI 30-39.9) Status: Chronic Assessment and plan: SEE PLAN OF CARE LISTED BELOW Current Visit: Yes (12) Sleep disorder Status: Chronic Assessment and plan: SEE PLAN OF CARE LISTED BELOW Current Visit: Yes Cardiology - PN: Subj Interval history: Martita Varner NP, have personally seen, examined patient today in the presence of Kylie Tavares RN. Kylie Tavares RN has acted as a scribe for me today. I have thoroughly discussed our plan of care and documentation with Ms. lópez. I have reviewed what she has written and agree with what is written below. [employer] SUPERVISOR: DR. CH PCP: DR. MARIN BIOINFORMATICS ENGINEER: DR. ANTON SUMMARY: Mr. Mondragon, 56BM, has history hypertension, dyslipidemia, diabetes, obesity and sedentary lifestyle. History of chronic renal failure (stage IV), cardiomyopathy, mitral regurgitation. Admitted April 29, 2017 with anasarca including third spacing up to the lower abdominal region. He has been diagnosed with nephrotic syndrome and is followed by Dr. Anton. He is undergone a variety of testing including venous ultrasound of upper and lower extremities, both negative for DVT. Patient was seen in cardiology clinic by Dr. Ch February 26, 2017. Patient has a known cardiomyopathy. In the fall 2015 EF was noted to be 35-40% with global hypokinesis and 1-2+ mitral regurgitation. He did not undergo cardiac catheterization at that time or initiation of DESTINEY inhibitor because of his renal insufficiency. Follow-up echocardiogram revealed some improvement in his systolic function however, repeat echocardiogram February 26, 2017 revealed worsening cardiomyopathy, MR 3-4+ . Cardiac catheterization has been discussed with this patient and timing of procedure was hussein. Because of his renal insufficiency, patient was not to see nephrology in order to discuss timing. April 30, 2017 EF 45%, mild to moderate mitral regurgitation. MAY 01, 2017: Patient is followed for chronic, stable conditions to include : CKD, hypertension, dyslipidemia, cardiomyopathy. He is followed for more acute conditions including anasarca related to acute on chronic CHF, nephrotic syndrome. He denies chest pain, heaviness, tightness. Reports his shortness of breath has improved, no PND, less orthopenic. Overnight, he appears to have diuresed very well. I have asked that strict I&O and daily weights be recorded daily. Blood pressure remains suboptimally controlled and this afternoon I will increase his Coreg. Creatinine remains basically unchanged at 4.4. Giving a "now" dose of 6.25 mg. Continue with Hydralazine/Imdur as the patient' s CKD will not allow for introduction of DESTINEY. Acknowledges he snores heavily and often holds his breath when he sleeps. He does not get good quality sleep at night as he wakes so frequently. Mallampati airway class III. Certainly he could benefit from evaluation from sleep medicine will have Dr. Blanchard see him. Patient will benefit from cardiac catheterization at some point. Fear of worsening his renal insufficiency with dye use therefore this has been postponed in the past. I will further discuss with Dr. Cabrera and await additional recommendations. May 02, 2017: Patient is followed for chronic, stable conditions to include : CKD, hypertension, dyslipidemia, cardiomyopathy. He is followed for more acute conditions including anasarca related to acute on chronic CHF, nephrotic syndrome. He denies chest pain or palpitations, reports shortness of breath has improved. Coreg was increased recently blood pressure is better controlled yet still suboptimal. Will add low-dose Norvasc watching carefully for worsening edema. Avoiding DESTINEY inhibitors for fear of worsening renal insufficiency. He continues to diurese well with negative I's and O's. He has lost 9 pounds since admission. His creatinine is unchanged at 4.4. Sleep medicine has seen him in consultation and was scheduled for outpatient sleep study. Will further discuss with Dr. Cabrera and await additional recommendations. MAY 02, 2017:REVIEW OF SYSTEMS: Cardiovascular: Denies chest pain, heaviness or tightness. Denies palpitations. Pulmonary: Denies PND, no longer orthopneic Abdomen: less distended, denies abdominal pain, nausea, vomiting. IMPRESSION/PLAN: 1. ANASARCA - multifactorial but certainly to include acute on chronic CHF, CKD, nephrotic syndrome. Has diuresed nicely as he looks much less edeamous. 2. ACUTE ON CHRONIC CHF - secondary to combined systolic dysfunction (EF 45) and diastolic dysfunction. IV Lasix, strict I&O and daily weights. Nephrology administered IV Albumin yesterday and his anasarca is improving. 3. CARDIOMYOPATHY - unknown classification at this time. He has been in the process of being readied for heart catheterization to further define. Renal insufficiency has prohibited this. 4. MITRAL REGURGITATION, MODERATE - continue with afterload reduction. 5. CKD, STAGE IV - Avoiding nephrotoxic agents such as DESTINEY Inhibitors. 6. HYPERTENSION - adding Norvasc. Unable to use DESTINEY inhibitor for fear of worsening his CKD. 7. DYSLIPIDEMIA - LDL 87. Continue lipid-lowering agent. 8. DIABETES - sliding scale insulin with adjustments as needed 9. OBESITY -the merits of weight loss was thoroughly discussed with patient. 10. SLEEP DISORDER - will have outpatient sleep study Exam (Progress Note) - Constitutional Vitals: Period Temp Pulse Resp BP Sys/Gray Pulse Ox Last 24 Hr 97.6 F-98.3 F 84-87 16-20 139-160/83-97 94-97 Exam: General: Appears well with no apparent distress. Pleasant and cooperative. Appears comfortable. HEENT: PERRL, normocephalic, atraumatic. Mucous membranes moist. No jaundice noted. Conjunctiva moist and clear, sclerae anicteric Neck: Unable to assess for JVD due to habitus. No thyromegaly or lymphadenopathy noted. No carotid bruit appreciated Cardiac: Regular rate and rhythm. No obvious murmur, rub or gallop. Lungs: Decreased sounds throughout without wheezing. Using oxygen occasionally Abdomen: Protuberant, nontender. Third spacing noted up to the lower abdomen. No abdominal bruit or thrill noted. No masses noted. Musculoskeletal: Decreased range of motion is noted. Extremities: No clubbing, cyanosis noted. Upper extremities with trace edema. Bilateral lower extremity 2+ edema with anasarca and third spacing up to his lower abdomen (less prominent today). Lower extremity pulses 2+. Capillary refill less than 3 seconds. Skin: No unusual lesions or rashes. No skin breakdown appreciated. Neuro: Awake, alert and oriented 3. Moves all extremities well without hemiparesis or paralysis. No essential tremor is appreciated. Result/EKG - Labs CBC & BMP: 05/02/17 04:13 05/02/17 04:13 Lab Results: I have reviewed the past 24 hour labs Labs: Laboratory Results - last 24 hr 05/01/17 05/01/17 05/02/17 16:00 20:27 04:13 WBC RBC Hgb Hct MCV MCH MCHC RDW Plt Count MPV Neut % (Auto) Lymph % (Auto) [place] % (Auto) Eos % (Auto) Baso % (Auto) Neut # (Auto) Lymph # (Auto) [place] # (Auto) Eos # (Auto) Baso # (Auto) Immature Gran % Nucleated RBC % Immature Gran # Nucleated RBCs # Immature Plt Fraction Sodium 139 Potassium 4.3 Chloride 106 Carbon Dioxide 26 Anion Gap 11.3 BUN 61 H Creatinine 4.40 H GFR Calculation 23 BUN/Creatinine Ratio 13.00 Glucose 97 POC Glucose 132 H 128 H Calculated Osmolality 293.5 Calcium 8.1 L Magnesium 1.7 L 05/02/17 05/02/17 05/02/17 04:13 07:29 11:41 WBC 4.9 RBC 3.87 Hgb 8.2 L Hct 25.9 L MCV 66.9 L MCH 21 L MCHC 31.7 L RDW 17.5 H Plt Count 235 MPV 11.0 Neut % (Auto) 66.4 Lymph % (Auto) 14.9 L [place] % (Auto) 15.5 H Eos % (Auto) 2.2 Baso % (Auto) 0.6 Neut # (Auto) 3.3 Lymph # (Auto) 0.7 L [place] # (Auto) 0.8 Eos # (Auto) 0.1 Baso # (Auto) 0.0 Immature Gran % 0.4 Nucleated RBC % 0.0 Immature Gran # 0.02 Nucleated RBCs # 0.00 Immature Plt Fraction 0.0 Sodium Potassium Chloride Carbon Dioxide Anion Gap BUN Creatinine GFR Calculation BUN/Creatinine Ratio Glucose POC Glucose 99 113 H Calculated Osmolality Calcium Magnesium - EKG EKG results: interpreted by me EKG shows: sinus rhythm Valentino Varner Bonnie E, NP, personally performed the services described in this documentation, ascribed by Kylie Tavares RN in my presence, and it is both accurate and complete [id number] .
[2017-05-02] MEDS: amLODIPine 5 MG TABLET PO SCH (16:29)
--- NOTE | 2017-05-02 17:19 | Nephrology Progress Note ---
Nephrology - PN: Subj Interval history: He denies shortness of breath. Edema is improving Exam (PN)-Nephrology - Vital Signs Vital signs: Period Temp Pulse Resp BP Sys/Gray Pulse Ox Last 24 Hr 97.4 F-98.3 F 83-87 16-20 139-160/76-97 92-98 Exam: ENT: Normal Cardiovascular: Regular rate and rhythm. No murmur rub or gallop Lungs: Clear Extremities: 2-3+ edema - Lab 05/02/17 04:13 05/02/17 04:13 Most recent lab results Calcium 8.1 MG/DL (8.5-10.1) L 05/02/17 04:13 Magnesium 1.7 MG/DL (1.8-2.4) L 05/02/17 04:13 Assessment and Plan (1) Chronic renal failure, stage 4 (severe) Status: Chronic Assessment and plan: 56-year-old man with: * CRF 4. Creatinine was 3.8 on 04/01/2017. Renal function has remained stable since admission * Anasarca. Weight is down 5 kg. Continue diuretic plus albumin * Cardiomyopathy * Diabetes mellitus * Hypertension Current Visit: Yes (2) Anasarca Status: Acute Current Visit: Yes (3) CHF (congestive heart failure) Status: Acute Current Visit: Yes Qualifiers: Congestive heart failure type: combined Congestive heart failure chronicity : acute on chronic Qualified Code(s): I50.43 - Acute on chronic combined systolic (congestive) and diastolic (congestive) heart failure (4) Cardiomyopathy Status: Chronic Current Visit: Yes Qualifiers: Cardiomyopathy type: unspecified Qualified Code(s): I42.9 - Cardiomyopathy , unspecified (5) Nephrotic syndrome Status: Acute Current Visit: Yes (6) Anemia Status: Chronic Current Visit: Yes Qualifiers: Anemia type: iron deficiency
[2017-05-02] MEDS: ATORVASTATIN 10 MG TABLET PO SCH (21:19)
[2017-05-03] MEDS: ALBUMIN 25% 12.5 GM in PREMIX 1 EACH IV SCH ×2 (01:39→14:27)
[2017-05-03 06:16] LABS: Basophils % 0.6 % (0.0-0.8); Eosinophils # 0.1 10*3/uL (0.0-0.87); Eosinophils % 1.6 % (0.00-10.9); Hematocrit 25.6 VOL% (42.0-52.0); Hemoglobin 8.3 GM/DL (14.0-18.0); Immature Granulocytes % 0.2 %; Immature Granulocytes Absolute 0.01 #; Lymphocytes # 0.8 10*3/uL (1.4-4.0); Lymphocytes % 16.7 % (21.2-54.2); Mean Corpuscular HGB Conc 32.4 GM/DL (32-36); Mean Corpuscular Hemoglobin 22 PG (27-34); Mean Corpuscular Volume 66.8 FL (87-102); Mean Platelet Volume 10.7 FL (9.6-12.0); Monocytes # 0.8 10*3/uL (0.11-0.8); Monocytes % 15.9 % (1.7-12.7); Neutrophils # 3.2 10*3/uL (1.4-7.4); Platelet Count 219 T/CUMM (130-400); Red Blood Count 3.83 MC/CUMM (3.8-5.5); Red Cell Distribution Width 17.3 % (9.3-17.3)
[2017-05-03 06:43] LABS: Calcium 8.4 MG/DL (8.5-10.1); Magnesium 1.8 MG/DL (1.8-2.4); Osmolality,Calculated 293.5 MOS/KG (273-304); Potassium 4.3 MMOL/L (3.5-5.1)
[2017-05-03 06:48] LABS: Burr Cells Slight; Eosinophils 6 % (0-10); Giant Platelets Few; Hypochromasia 1+; Lymphocytes 17 % (20-55); Microcytosis Slight; Ovalocytes Slight; Platelet Estimate Adequate; Segmented Neutrophils 67 % (50-85); Total Cells Counted 100
[2017-05-03] MEDS ORDERED: FUROSEMIDE 100 MG/10 ML VIAL ONE (07:21)
[2017-05-03] MEDS ORDERED: hydrALAZINE 20 MG/1 ML VIAL IV PRN (07:56)
--- NOTE | 2017-05-03 07:59 | Hospitalist Progress Note ---
Assessment and Plan (1) Systolic CHF, acute on chronic Status: Resolved Assessment and plan: He has severe acute on chronic systolic congestive heart failure. He is presently receiving furosemide 80 mg intravenous every 8 hours. As noted above echocardiography demonstrated LV EF 45%, mild to moderate pericardial effusion with no evidence of cardiac tamponade, and a left pleural effusion. He is being followed by cardiology. I plan to continue intravenous furosemide diuresis. He is lost to date since his admission approximately 12.27 pounds. I will continue diuresis with intravenous furosemide. He will probably be ready for discharge on 05/05/17. Current Visit: No (2) Anemia Status: Chronic Assessment and plan: His hematocrit and hemoglobin are 25.6 and 8.3 respectively. They are minimally changed from yesterday. Current Visit: Yes Qualifiers: Anemia type: iron deficiency (3) Non-insulin dependent type 2 diabetes mellitus Status: Chronic Assessment and plan: His glucose today is 106. He is being treated with sliding scale regular insulin coverage. Current Visit: Yes (4) Chronic renal failure, stage 4 (severe) Status: Chronic Assessment and plan: His BUN and creatinine are 64 and 4.6 respectively today. These are minimally changed from yesterday. He is being followed by nephrology. Current Visit: Yes (5) Cardiomyopathy Status: Chronic Assessment and plan: Echocardiogram during this hospitalization demonstrated LV EF 45%, improved from the previous 25% obtained in January 2017. He is not a candidate for DESTINEY inhibitors or ARB's due to his severe chronic kidney disease. I have increased his hydralazine and Imdur or as tolerated. Current Visit: Yes Qualifiers: Cardiomyopathy type: unspecified Qualified Code(s): I42.9 - Cardiomyopathy , unspecified (6) Anasarca Status: Acute Assessment and plan: His generalized edema is significantly improved with diuresis. There is only mild edema of his legs and moderate edema of his scrotum at this time. Current Visit: Yes (7) Hypertension Status: Chronic Assessment and plan: His blood pressure this morning was 159/86. Repeat manual blood pressure demonstrated systolic of 200 mmHg. I have increased his Imdur to 30 mg p.o. BID and his hydralazine to 150 mg p.o. 3 times daily. Current Visit: Yes Qualifiers: Hypertension type: essential hypertension Qualified Code(s): I10 - Essential (primary) hypertension Hospitalist: Subjective Interval history: Mr. Mondragon feels well with no complaints. He is not experiencing shortness of breath or chest pain. He continues to undergo significant diuresis. He has lost 12.27 pounds since admission. His major problem today has been hypertension his most recent systolic blood pressure is approximately 200 mmHg. I have, accordingly, increased his hydralazine to 150 mg p.o. 3 times daily and increased his Imdur to 30 mg p.o. twice daily. Exam - Constitutional Vitals: Period Temp Pulse Resp BP Sys/Gray Pulse Ox Last 24 Hr 97.4 F-98.3 F 83-89 18-20 141-159/76-91 92-98 General appearance: no acute distress - Head Head exam: Present: normal inspection - Neck Neck exam: Present: normal inspection - Respiratory Respiratory exam: Present: clear to auscultation bilaterally - Cardiovascular Cardiovascular exam: Present: regular rate and rhythm - GI/Abdominal GI/Abdominal exam: Present: normal bowel sounds, soft, other (There is persistent moderate scrotal edema. It is much less tense than it was on admission.) - Extremities Exam Extremities exam: Present: edema (1+.) - Skin Skin exam: Present: normal color, warm, intact Results - Labs CBC & BMP: 05/03/17 05:22 05/03/17 05:22
[2017-05-03] MEDS: INSULIN LISPRO 100 UNIT/ML SUBCUT SCH ×4 (08:25→23:44)
[2017-05-03] MEDS: CARVEDILOL 25 MG TABLET PO SCH ×2 (08:26→21:06)
[2017-05-03] MEDS: FUROSEMIDE 40 MG/4 ML VIAL IV SCH ×3 (08:26→21:07)
[2017-05-03] MEDS: ENOXAPARIN 30 MG/0.3 ML SYRINGE SUBCUT SCH (08:26)
[2017-05-03] MEDS: FERROUS SULFATE 325 MG TABLET PO SCH (08:26)
[2017-05-03] MEDS: amLODIPine 5 MG TABLET PO SCH (08:26)
[2017-05-03] MEDS: SILVER SULFADIAZINE 1% CREAM 25 GM TUBE TOP SCH (08:27)
[2017-05-03] MEDS: ISOSORBIDE MONONITRATE 30 MG TABLET PO SCH ×2 (08:27→21:06)
[2017-05-03] MEDS: MAGNESIUM OXIDE 400 MG TABLET PO SCH ×2 (08:27→21:06)
--- NOTE | 2017-05-03 09:45 | Nephrology Progress Note ---
Nephrology - PN: Subj Interval history: No acute overnight events. Creatinine 4.6. Hypertension worse this am. Exam (PN)-Nephrology - Vital Signs Vital signs: Period Temp Pulse Resp BP Sys/Gray Pulse Ox Last 24 Hr 97.4 F-98.3 F 63-89 18-20 141-215/76-100 92-98 Exam: Pt not examined. Chart/data reviewed. - Lab 05/03/17 05:22 05/03/17 05:22 Most recent lab results Calcium 8.4 MG/DL (8.5-10.1) L 05/03/17 05:22 Magnesium 1.8 MG/DL (1.8-2.4) 05/03/17 05:22 Assessment and Plan (1) Hypertension Problem details: Pt likely has an edematous gut with poor po med absorption. Consider IVP labetalol 10-20mg, prn SBP >180. Status: Chronic Current Visit : Yes Qualifiers: Hypertension type: essential hypertension Qualified Code(s): I10 - Essential (primary) hypertension (2) Chronic renal failure, stage 4 (severe) Problem details: At risk for uremic pericarditis with this level of renal failure. Consider pericardiocentesis. If bloody, would suggest either Tb or uremic in etiology. Has reason enough with his anasarca/nephrotic syndrome. A rub is less likely to be heard with larger volume effusions. Status: Chronic Current Visit: Yes (3) Nephrotic syndrome Status: Acute Current Visit: Yes
--- NOTE | 2017-05-03 18:58 | Cardiology Progress Note ---
Assessment and Plan - Time spent with patient Time spent with patient: Greater than 30 minutes (1) CHF (congestive heart failure) Status: Acute Assessment and plan: 05/03/17 Heart failure seems to be improving He is on best as we can do with his renal [id number], hydralazine, Isordil Watch renal function Cannot be on an DESTINEY inhibitor or arb He has an appointment to see Dr. Mel Ch on 05/05. If he is out by the time of appointment I will have him see her Current Visit: Yes Qualifiers: Congestive heart failure type: combined Congestive heart failure chronicity : acute on chronic Qualified Code(s): I50.43 - Acute on chronic combined systolic (congestive) and diastolic (congestive) heart failure (2) Chronic renal failure, stage 4 (severe) Problem details: At risk for uremic pericarditis with this level of renal failure. Consider pericardiocentesis. If bloody, would suggest either Tb or uremic in etiology. Has reason enough with his anasarca/nephrotic syndrome. A rub is less likely to be heard with larger volume effusions. Status: Chronic Current Visit: Yes (3) Suspected sleep apnea Status: Acute Current Visit: Yes (4) Anasarca Status: Acute Current Visit: Yes (5) Hypoalbuminemia Status: Acute Current Visit: Yes (6) Nephrotic syndrome Status: Acute Current Visit: Yes (7) Anemia Status: Chronic Current Visit: Yes Qualifiers: Anemia type: iron deficiency (8) Cardiomyopathy Status: Chronic Current Visit: Yes Qualifiers: Cardiomyopathy type: unspecified Qualified Code(s): I42.9 - Cardiomyopathy , unspecified (9) Dyslipidemia Status: Chronic Current Visit: Yes (10) Hypertension Problem details: Pt likely has an edematous gut with poor po med absorption. Consider IVP labetalol 10-20mg, prn SBP >180. Status: Chronic Current Visit : Yes Qualifiers: Hypertension type: essential hypertension Qualified Code(s): I10 - Essential (primary) hypertension (11) Obesity (BMI 30-39.9) Status: Chronic Current Visit: Yes (12) Sleep disorder Status: Chronic Current Visit: Yes (13) Peripheral edema Status: Chronic Current Visit: No (14) Systolic CHF, acute on chronic Status: Resolved Current Visit: No Cardiology - PN: Subj Interval history: No chest pain or worsening shortness of breath Exam (Progress Note) - Constitutional Vitals: Period Temp Pulse Resp BP Sys/Gray Pulse Ox Last 24 Hr 97.4 F-98.3 F 63-89 18-20 136-215/84-100 93-96 Exam: HEENT: Pupils equal, reactive to light and accommodation Neck: NoJVD or bruit Lungs clear to auscultation Heart: Regular rhythm rate with normal S1 and S2. Apical S4, 2/6 ejection murmur along the left lower sternal border Abdomen: No hepatosplenomegaly Spine/extremities: No clubbing, cyanosis, or edema Neuro: Nonfocal Psych: No depression or anxiety Result/EKG - Labs CBC & BMP: 05/03/17 05:22 05/03/17 05:22 Lab Results: I have reviewed the past 24 hour labs Labs: Laboratory Results - last 24 hr 05/02/17 05/03/17 05/03/17 20:18 05:22 05:22 WBC 5.0 RBC 3.83 Hgb 8.3 L Hct 25.6 L MCV 66.8 L MCH 22 L MCHC 32.4 RDW 17.3 Plt Count 219 MPV 10.7 Neut % (Auto) 65.0 Lymph % (Auto) 16.7 L [place] % (Auto) 15.9 H Eos % (Auto) 1.6 Baso % (Auto) 0.6 Neut # (Auto) 3.2 Lymph # (Auto) 0.8 L [place] # (Auto) 0.8 Eos # (Auto) 0.1 Baso # (Auto) 0.0 Total Counted 100 Immature Gran % 0.2 Nucleated RBC % 0.0 Immature Gran # 0.01 Segmented Neutrophils 67 Lymphocytes 17 L Monocytes 10 Eosinophils 6 Nucleated RBCs # 0.00 Platelet Estimate Adequate Giant Platelets Few Immature Plt Fraction 0.0 Hypochromasia 1+ Microcytosis Slight Ovalocytes Slight [place] Cells Slight Sodium 139 Potassium 4.3 Chloride 104 Carbon Dioxide 25 Anion Gap 14.3 BUN 64 H Creatinine 4.60 H GFR Calculation 21 BUN/Creatinine Ratio 13.00 Glucose 73 L POC Glucose 106 Calculated Osmolality 293.5 Calcium 8.4 L Magnesium 1.8 05/03/17 05/03/17 07:41 12:40 WBC RBC Hgb Hct MCV MCH MCHC RDW Plt Count MPV Neut % (Auto) Lymph % (Auto) [place] % (Auto) Eos % (Auto) Baso % (Auto) Neut # (Auto) Lymph # (Auto) [place] # (Auto) Eos # (Auto) Baso # (Auto) Total Counted Immature Gran % Nucleated RBC % Immature Gran # Segmented Neutrophils Lymphocytes Monocytes Eosinophils Nucleated RBCs # Platelet Estimate Giant Platelets Immature Plt Fraction Hypochromasia Microcytosis Ovalocytes [place] Cells Sodium Potassium Chloride Carbon Dioxide Anion Gap BUN Creatinine GFR Calculation BUN/Creatinine Ratio Glucose POC Glucose 87 83 Calculated Osmolality Calcium Magnesium - Diagnostic Findings Procedure: Chest x-ray: report reviewed by me - EKG EKG results: interpreted by me Specialty Discharge - Follow Up or Referrals Follow up with: Mel Ch MD [Physician] - (On 05/05/17, as is scheduled. If he is in the hospital past that day, may call and get him an appointment for 3 or 4 weeks from when he is discharged.)
[2017-05-03] MEDS: ATORVASTATIN 10 MG TABLET PO SCH (21:06)
[2017-05-04] MEDS: ALBUMIN 25% 12.5 GM in PREMIX 1 EACH IV SCH ×2 (02:14→15:12)
[2017-05-04 07:05] LABS: Basophils % 0.5 % (0.0-0.8); Eosinophils # 0.1 10*3/uL (0.0-0.87); Hematocrit 25.5 VOL% (42.0-52.0); Hemoglobin 8.1 GM/DL (14.0-18.0); Immature Granulocytes % 0.3 %; Immature Granulocytes Absolute 0.02 #; Lymphocytes # 0.7 10*3/uL (1.4-4.0); Lymphocytes % 12.3 % (21.2-54.2); Mean Corpuscular HGB Conc 31.8 GM/DL (32-36); Mean Corpuscular Hemoglobin 21 PG (27-34); Mean Corpuscular Volume 66.8 FL (87-102); Mean Platelet Volume 10.7 FL (9.6-12.0); Monocytes # 0.9 10*3/uL (0.11-0.8); Monocytes % 14.8 % (1.7-12.7); Neutrophils # 4.2 10*3/uL (1.4-7.4); Neutrophils % 70.1 % (38.7-73.9); Platelet Count 221 T/CUMM (130-400); Red Blood Count 3.82 MC/CUMM (3.8-5.5); Red Cell Distribution Width 17.4 % (9.3-17.3)
[2017-05-04 07:28] LABS: Osmolality,Calculated 291.8 MOS/KG (273-304); Potassium 4.2 MMOL/L (3.5-5.1)
[2017-05-04 07:32] LABS: Osmolality,Calculated 290.8 MOS/KG (273-304); Potassium 4.2 MMOL/L (3.5-5.1)
--- NOTE | 2017-05-04 07:37 | Hospitalist Progress Note ---
Assessment and Plan (1) Systolic CHF, acute on chronic Status: Resolved Assessment and plan: He has severe acute on chronic systolic congestive heart failure. He is presently receiving furosemide 80 mg intravenous every 8 hours. As noted above echocardiography demonstrated LV EF 45%, mild to moderate pericardial effusion with no evidence of cardiac tamponade, and a left pleural effusion. He is being followed by cardiology. I plan to continue intravenous furosemide diuresis. He is lost to date since his admission approximately 14.27 pounds. I will continue diuresis with intravenous furosemide. He will probably be ready for discharge on 05/05/17. Current Visit: No (2) Anemia Status: Chronic Assessment and plan: His hematocrit and hemoglobin are 25.5 and 8.1 respectively. They are minimally changed from yesterday. Current Visit: Yes Qualifiers: Anemia type: iron deficiency (3) Non-insulin dependent type 2 diabetes mellitus Status: Chronic Assessment and plan: His glucose today is 96. He is being treated with sliding scale regular insulin coverage. Current Visit: Yes (4) Chronic renal failure, stage 4 (severe) Problem details: At risk for uremic pericarditis with this level of renal failure. Consider pericardiocentesis. If bloody, would suggest either Tb or uremic in etiology. Has reason enough with his anasarca/nephrotic syndrome. A rub is less likely to be heard with larger volume effusions. Status: Chronic Assessment and plan: His BUN and creatinine are 64 and 4.6 respectively today. These are unchanged from yesterday. He is being followed by nephrology. Current Visit: Yes (5) Cardiomyopathy Status: Chronic Assessment and plan: Echocardiogram during this hospitalization demonstrated LV EF 45%, improved from the previous 25% obtained in January 2017. He is not a candidate for DESTINEY inhibitors or ARB's due to his severe chronic kidney disease. I have increased his hydralazine and Imdur or as tolerated. Current Visit: Yes Qualifiers: Cardiomyopathy type: unspecified Qualified Code(s): I42.9 - Cardiomyopathy , unspecified (6) Anasarca Status: Acute Assessment and plan: His generalized edema is significantly improved with diuresis. There is only mild edema of his legs and moderate edema of his scrotum at this time. Current Visit: Yes (7) Hypertension Problem details: Pt likely has an edematous gut with poor po med absorption. Consider IVP labetalol 10-20mg, prn SBP >180. Status: Chronic Assessment and plan: His blood pressure this morning was 147/85. Current Visit: Yes Qualifiers: Hypertension type: essential hypertension Qualified Code(s): I10 - Essential (primary) hypertension Hospitalist: Subjective Interval history: Mr. Mondragon is doing well with no complaints. He is walking in the [place] with no problems. He is not experiencing shortness of breath or chest pain. He continues to undergo intravenous furosemide diuresis. He is lost 14.27 pounds since admission. Exam - Constitutional Vitals: Period Temp Pulse Resp BP Sys/Gray Pulse Ox Last 24 Hr 97.4 F-98.5 F 63-85 18-20 136-215/79-100 93-97 General appearance: no acute distress - Head Head exam: Present: normal inspection - Neck Neck exam: Present: normal inspection - Respiratory Respiratory exam: Present: clear to auscultation bilaterally - Cardiovascular Cardiovascular exam: Present: regular rate and rhythm - GI/Abdominal GI/Abdominal exam: Present: normal bowel sounds, soft, other (He has persistent mild to moderate scrotal edema, significantly decreased since admission.) - Extremities Exam Extremities exam: Present: edema (1+.) - Skin Skin exam: Present: normal color, warm, intact Results - Labs CBC & BMP: 05/04/17 06:31 05/03/17 05:22 Specialty Discharge - Follow Up or Referrals Follow up with: Mel Ch MD [Physician] - (On 05/05/17, as is scheduled. If he is in the hospital past that day, may call and get him an appointment for 3 or 4 weeks from when he is discharged.)
[2017-05-04 07:39] LABS: Lymphocytes 10 % (20-55); Segmented Neutrophils 75 % (50-85); Total Cells Counted 100
[2017-05-04 07:40] LABS: Burr Cells Slight; Giant Platelets Few; Hypochromasia 1+; Microcytosis Slight; Platelet Estimate Adequate
[2017-05-04] MEDS: INSULIN LISPRO 100 UNIT/ML SUBCUT SCH ×4 (08:02→20:23)
[2017-05-04] MEDS: MAGNESIUM OXIDE 400 MG TABLET PO SCH ×2 (08:36→21:03)
[2017-05-04] MEDS: FERROUS SULFATE 325 MG TABLET PO SCH (08:37)
[2017-05-04] MEDS: CARVEDILOL 25 MG TABLET PO SCH ×2 (08:37→21:03)
[2017-05-04] MEDS: ISOSORBIDE MONONITRATE 30 MG TABLET PO SCH ×2 (08:37→21:03)
[2017-05-04] MEDS: ENOXAPARIN 30 MG/0.3 ML SYRINGE SUBCUT SCH (08:39)
[2017-05-04] MEDS: FUROSEMIDE 40 MG/4 ML VIAL IV SCH ×3 (08:39→21:02)
[2017-05-04] MEDS: amLODIPine 10 MG TABLET PO SCH (08:39)
[2017-05-04] MEDS: SILVER SULFADIAZINE 1% CREAM 25 GM TUBE TOP SCH (08:40)
--- NOTE | 2017-05-04 11:49 | Nephrology Progress Note ---
Nephrology - PN: Subj Interval history: Net neg 4.2L in last 30hrs. Denies pain/SOB. Exam (PN)-Nephrology - Vital Signs Vital signs: Period Temp Pulse Resp BP Sys/Gray Pulse Ox Last 24 Hr 97.4 F-98.5 F 79-85 18-20 136-152/78-89 93-97 Exam: Not examined. - Lab 05/04/17 06:31 05/04/17 06:31 Most recent lab results Calcium 8.0 MG/DL (8.5-10.1) L 05/04/17 06:31 Magnesium 2.0 MG/DL (1.8-2.4) 05/04/17 06:31 Assessment and Plan (1) Chronic renal failure, stage 4 (severe) Problem details: Stable creatinine 4.6. No uremic symptoms. Status: Chronic Current Visit: Yes (2) Nephrotic syndrome Status: Acute Current Visit: Yes (3) Anemia Problem details: Microcytic. Check FeSat, If <20% consider IV replacement with iron sucrose, 200mg daily x 5 Status: Chronic Current Visit: Yes Qualifiers: Anemia type: iron deficiency Specialty Discharge - Follow Up or Referrals Follow up with: Mel Ch MD [Physician] - (On 05/05/17, as is scheduled. If he is in the hospital past that day, may call and get him an appointment for 3 or 4 weeks from when he is discharged.)
--- NOTE | 2017-05-04 15:13 | Cardiology Progress Note ---
Assessment and Plan (1) CHF (congestive heart failure) Status: Acute Assessment and plan: 05/03/17 Heart failure seems to be improving He is on best as we can do with his renal [id number], hydralazine, Isordil Watch renal function Cannot be on an DESTINEY inhibitor or arb He has an appointment to see Dr. Mel Ch on 05/05. If he is out by the time of appointment I will have him see her 05/04/17: Symptomatically his heart failure seems better I emphasized to the patient his need for sleep apnea evaluation. He is for PSG on 05/26 I discussed with him that if he has sleep apnea, which I suspect he has, treatment of it would very definitely helped his cardiomyopathy and help control the heart failure and probably help his renal insufficiency[at least allow less diuretics needed] We will change follow-up with Dr. Ch to about 2-4 weeks for now. He was to see her tomorrow Labs are okay on current meds. No increasing creatinine. Current Visit: Yes Qualifiers: Congestive heart failure type: combined Congestive heart failure chronicity : acute on chronic Qualified Code(s): I50.43 - Acute on chronic combined systolic (congestive) and diastolic (congestive) heart failure (2) Chronic renal failure, stage 4 (severe) Problem details: Stable creatinine 4.6. No uremic symptoms. Status: Chronic Current Visit: Yes (3) Suspected sleep apnea Status: Acute Current Visit: Yes (4) Anasarca Status: Acute Current Visit: Yes (5) Hypoalbuminemia Status: Acute Current Visit: Yes (6) Nephrotic syndrome Status: Acute Current Visit: Yes (7) Anemia Problem details: Microcytic. Check FeSat, If <20% consider IV replacement with iron sucrose, 200mg daily x 5 Status: Chronic Current Visit: Yes Qualifiers: Anemia type: iron deficiency (8) Cardiomyopathy Status: Chronic Current Visit: Yes Qualifiers: Cardiomyopathy type: unspecified Qualified Code(s): I42.9 - Cardiomyopathy , unspecified (9) Dyslipidemia Status: Chronic Current Visit: Yes (10) Hypertension Problem details: Pt likely has an edematous gut with poor po med absorption. Consider IVP labetalol 10-20mg, prn SBP >180. Status: Chronic Current Visit : Yes Qualifiers: Hypertension type: essential hypertension Qualified Code(s): I10 - Essential (primary) hypertension (11) Obesity (BMI 30-39.9) Status: Chronic Current Visit: Yes (12) Sleep disorder Status: Chronic Current Visit: Yes (13) Peripheral edema Status: Chronic Current Visit: No (14) Systolic CHF, acute on chronic Status: Resolved Current Visit: No Cardiology - PN: Subj Interval history: No chest pain or increasing shortness of breath Exam (Progress Note) - Constitutional Vitals: Period Temp Pulse Resp BP Sys/Gray Pulse Ox Last 24 Hr 97.4 F-98.5 F 78-85 18-20 139-152/73-89 93-97 Exam: HEENT: Pupils equal, reactive to light and accommodation Neck: NoJVD or bruit Lungs clear to auscultation Heart: Regular rhythm rate with normal S1 and S2. Apical S4, 2/6 ejection murmur along the left lower sternal border Abdomen: No hepatosplenomegaly Spine/extremities: No clubbing, cyanosis, or edema Neuro: Nonfocal Psych: No depression or anxiety Result/EKG - Labs CBC & BMP: 05/04/17 06:31 05/04/17 06:31 Lab Results: I have reviewed the past 24 hour labs Labs: Laboratory Results - last 24 hr 05/03/17 05/03/17 05/04/17 15:48 21:11 06:31 WBC 6.0 RBC 3.82 Hgb 8.1 L Hct 25.5 L MCV 66.8 L MCH 21 L MCHC 31.8 L RDW 17.4 H Plt Count 221 MPV 10.7 Neut % (Auto) 70.1 Lymph % (Auto) 12.3 L Emanuel % (Auto) 14.8 H Eos % (Auto) 2.0 Baso % (Auto) 0.5 Neut # (Auto) 4.2 Lymph # (Auto) 0.7 L Emanuel # (Auto) 0.9 H Eos # (Auto) 0.1 Baso # (Auto) 0.0 Total Counted 100 Immature Gran % 0.3 Nucleated RBC % 0.0 Immature Gran # 0.02 Segmented Neutrophils 75 Lymphocytes 10 L Monocytes 15 Nucleated RBCs # 0.00 Platelet Estimate Adequate Giant Platelets Few Immature Plt Fraction 0.0 Hypochromasia 1+ Microcytosis Slight [place] Cells Slight Sodium Potassium Chloride Carbon Dioxide Anion Gap BUN Creatinine GFR Calculation BUN/Creatinine Ratio Glucose POC Glucose 98 124 H Calculated Osmolality Calcium Magnesium 05/04/17 05/04/17 05/04/17 06:31 06:31 07:35 WBC RBC Hgb Hct MCV MCH MCHC RDW Plt Count MPV Neut % (Auto) Lymph % (Auto) Emanuel % (Auto) Eos % (Auto) Baso % (Auto) Neut # (Auto) Lymph # (Auto) Emanuel # (Auto) Eos # (Auto) Baso # (Auto) Total Counted Immature Gran % Nucleated RBC % Immature Gran # Segmented Neutrophils Lymphocytes Monocytes Nucleated RBCs # Platelet Estimate Giant Platelets Immature Plt Fraction Hypochromasia Microcytosis [place] Cells Sodium 137 137 Potassium 4.2 4.2 Chloride 103 103 Carbon Dioxide 23 23 Anion Gap 15.2 H 15.2 H BUN 67 H 64 H Creatinine 4.60 H 4.60 H GFR Calculation 21 21 BUN/Creatinine Ratio 14.00 13.00 Glucose 95 96 POC Glucose 99 Calculated Osmolality 291.8 290.8 Calcium 8.0 L 8.0 L Magnesium 2.0 05/04/17 12:11 WBC RBC Hgb Hct MCV MCH MCHC RDW Plt Count MPV Neut % (Auto) Lymph % (Auto) Emanuel % (Auto) Eos % (Auto) Baso % (Auto) Neut # (Auto) Lymph # (Auto) Emanuel # (Auto) Eos # (Auto) Baso # (Auto) Total Counted Immature Gran % Nucleated RBC % Immature Gran # Segmented Neutrophils Lymphocytes Monocytes Nucleated RBCs # Platelet Estimate Giant Platelets Immature Plt Fraction Hypochromasia Microcytosis [place] Cells Sodium Potassium Chloride Carbon Dioxide Anion Gap BUN Creatinine GFR Calculation BUN/Creatinine Ratio Glucose POC Glucose 113 H Calculated Osmolality Calcium Magnesium - EKG EKG results: interpreted by me Specialty Discharge - Follow Up or Referrals Follow up with: Mel Ch MD [Physician] - (On 05/05/17, as is scheduled. If he is in the hospital past that day, may call and get him an appointment for 3 or 4 weeks from when he is discharged.)
[2017-05-04] MEDS: ATORVASTATIN 10 MG TABLET PO SCH (21:05)
[2017-05-05] MEDS: ALBUMIN 25% 12.5 GM in PREMIX 1 EACH IV SCH (01:13)
[2017-05-05 05:55] LABS: Basophils % 0.6 % (0.0-0.8); Eosinophils # 0.1 10*3/uL (0.0-0.87); Eosinophils % 1.7 % (0.00-10.9); Hemoglobin 8.1 GM/DL (14.0-18.0); Immature Granulocytes % 0.4 %; Immature Granulocytes Absolute 0.02 #; Lymphocytes # 0.7 10*3/uL (1.4-4.0); Lymphocytes % 13.3 % (21.2-54.2); Mean Corpuscular HGB Conc 32.4 GM/DL (32-36); Mean Corpuscular Hemoglobin 21 PG (27-34); Mean Platelet Volume 11.3 FL (9.6-12.0); Monocytes # 0.7 10*3/uL (0.11-0.8); Monocytes % 13.9 % (1.7-12.7); Neutrophils # 3.6 10*3/uL (1.4-7.4); Neutrophils % 70.1 % (38.7-73.9); Platelet Count 223 T/CUMM (130-400); Red Blood Count 3.79 MC/CUMM (3.8-5.5); Red Cell Distribution Width 17.2 % (9.3-17.3); White Blood Count 5.2 T/CUMM (4-12)
[2017-05-05 06:29] LABS: Burr Cells Slight; Hypochromasia 1+; Platelet Estimate Adequate
[2017-05-05 06:30] LABS: Calcium 8.1 MG/DL (8.5-10.1); Magnesium 2.1 MG/DL (1.8-2.4); Osmolality,Calculated 295.7 MOS/KG (273-304); Potassium 4.2 MMOL/L (3.5-5.1)
[2017-05-05 06:42] LABS: Microcytosis Slight; Ovalocytes Slight
--- NOTE | 2017-05-05 08:08 | Discharge Summary ---
Hospital Course - Hospital Course Hospital Course: Mr. Mondragon, 56BM, has risk factors significant for: Hypertension, dyslipidemia , diabetes, obesity and sedentary lifestyle. History of chronic renal failure ( stage IV), cardiomyopathy, mitral regurgitation. Admitted April 29, 2017 with anasarca including third spacing up to the lower abdominal region. This past Friday, patient reports his right arm began to swell. This is new. He has been experiencing scrotal edema since January 2017. Patient reports he always has bilateral lower extremity edema however not to this extent. On examination , he has significant swelling and possible third spacing up to his lower abdominal area. Patient was seen in cardiology clinic by Dr. Ch February 26, 2017. Patient has a known cardiomyopathy. In the fall 2015 EF was noted to be 35-40% with global hypokinesis and 1-2+ mitral regurgitation. He did not undergo cardiac catheterization at that time or initiation of DESTINEY inhibitor because of his renal insufficiency. Follow-up echocardiogram revealed some improvement in his systolic function however, repeat echocardiogram February 26, 2017 revealed worsening cardiomyopathy, MR 3-4+. Cardiac catheterization has been discussed with this patient and timing of procedure was hussein. Because of his renal insufficiency, patient was not to see nephrology in order to discuss timing. ( February 24, 2017 echocardiogram reveals: EF 15-20%, grade 4 diastolic dysfunction , moderate to severe concentric LVH, moderate to severe mitral regurgitation, PAP 40 mmHg.) Mr. Mondragon was admitted to the hospital with acute on chronic systolic congestive heart failure and stage III-IV chronic kidney disease. He was seen in consultation by Dr. Cabrera of cardiology and Dr. Gordon of nephrology. He was treated with intravenous furosemide diuresis undergoing a 20 pound weight loss during his hospitalization. Repeat echocardiography demonstrated him to now have LVEF of 45%. He required increasing doses of hydralazine and initiation of therapy with amlodipine to successfully control his blood pressure. At the time of discharge his anasarca had resolved and he was experiencing no shortness of breath while walking in the [place] in the hospital. He was advised to follow up with cardiology 2 weeks following discharge. Diagnosis - Discharge Diagnosis (1) Systolic CHF, acute on chronic Status: Acute (2) Anemia Status: Chronic (3) Non-insulin dependent type 2 diabetes mellitus Status: Chronic (4) Chronic renal failure, stage 4 (severe) Status: Chronic (5) Cardiomyopathy Status: Chronic (6) Anasarca Status: Acute (7) Hypertension Status: Chronic Specialty Discharge - Follow Up or Referrals Follow up with: Mel Ch MD [Physician] - (On 05/05/17, as is scheduled. If he is in the hospital past that day, may call and get him an appointment for 3 or 4 weeks from when he is discharged.) Discharge Plan - Discharge Data Disposition: Disch To Home/Self Care Condition at Discharge: Stable Discharge Diet: advance to your usual diet Activity: resume usual activities as tolerated - Discharge Medications New Atorvastatin [Lipitor] 10 mg PO BEDTIME #30 tablet Carvedilol [Coreg] 25 mg PO BID #60 tablet Isosorbide Mononitrate [Imdur] 30 mg PO BID #60 tablet amLODIPine [Norvasc] 10 mg PO DAILY #30 tablet hydrALAZINE TAB [Apresoline Tab] 200 mg PO TID #180 tablet Continue Cinnamon Bark [Cinnamon] 1,000 mg PO QAM Aspirin 325 mg PO QAM sitaGLIPtin [Januvia] 25 mg PO DAILY Furosemide Tab [Lasix Tab] 80 mg PO BID Turmeric/Turmeric Ext/Pepr Ext [Turmeric Complex 500 mg Cap] 1 each PO QAM Ferrous Sulfate 325 mg PO QAM Discontinued Carvedilol [Coreg] 6.25 mg PO BID #60 tablet Isosorbide Mononitrate [Imdur] 30 mg PO DAILY Hydralazine HCl 50 mg PO TID - Follow Up or Referral Follow Up: Mel Ch MD [Physician] - (On 05/05/17, as is scheduled. If he is in the hospital past that day, may call and get him an appointment for 3 or 4 weeks from when he is discharged.) - Forms/Instructions Exam - Constitutional Vitals: Period Temp Pulse Resp BP Sys/Gray Pulse Ox Last 24 Hr 97.3 F-98.2 F 64-80 18-20 121-154/66-84 93-97 Discharge Results Labs on day of discharge: Labs from last 24 hours 05/05/17 05/05/17 05/04/17 04:30 04:30 19:55 WBC 5.2 RBC 3.79 L Hgb 8.1 L Hct 25.0 L MCV 66.0 L MCH 21 L MCHC 32.4 RDW 17.2 Plt Count 223 MPV 11.3 Neut % (Auto) 70.1 Lymph % (Auto) 13.3 L [place] % (Auto) 13.9 H Eos % (Auto) 1.7 Baso % (Auto) 0.6 Neut # (Auto) 3.6 Lymph # (Auto) 0.7 L [place] # (Auto) 0.7 Eos # (Auto) 0.1 Baso # (Auto) 0.0 Immature Gran % 0.4 Nucleated RBC % 0.0 Immature Gran # 0.02 Nucleated RBCs # 0.00 Platelet Estimate Adequate Immature Plt Fraction 0.0 Hypochromasia 1+ Microcytosis Slight Ovalocytes Slight [place] Cells Slight Sodium 138 Potassium 4.2 Chloride 103 Carbon Dioxide 24 Anion Gap 15.2 H BUN 72 H Creatinine 4.70 H GFR Calculation 20 BUN/Creatinine Ratio 15.00 Glucose 95 POC Glucose 114 H Calculated Osmolality 295.7 Calcium 8.1 L Magnesium 2.1 05/04/17 05/04/17 05/04/17 15:45 12:11 07:35 WBC RBC Hgb Hct MCV MCH MCHC RDW Plt Count MPV Neut % (Auto) Lymph % (Auto) [place] % (Auto) Eos % (Auto) Baso % (Auto) Neut # (Auto) Lymph # (Auto) [place] # (Auto) Eos # (Auto) Baso # (Auto) Immature Gran % Nucleated RBC % Immature Gran # Nucleated RBCs # Platelet Estimate Immature Plt Fraction Hypochromasia Microcytosis Ovalocytes [place] Cells Sodium Potassium Chloride Carbon Dioxide Anion Gap BUN Creatinine GFR Calculation BUN/Creatinine Ratio Glucose POC Glucose 178 H 113 H 99 Calculated Osmolality Calcium Magnesium DS: Provider Date of admission: 04/29/17 15:53 Primary care physician: . No PCP Attending physician on admission: Wilbert De León Consults: 04/29/17 18:05 Consult to Physician [CONS] Routine Comment: CHF Consulting Provider: Cardiology - [facility] Person Notified: VERNELL Date Notified: 04/30/17 Time Notified: 08:35 Consult to Physician [CONS] Routine Comment: renal failure/pt known to you Consulting Provider: Romel Gordon Person Notified: MIL Date Notified: 04/30/17 Time Notified: 08:41 04/30/17 13:52 Consult to Wound Care - [place] [CONS] Routine Reason for Wound Care: Wound Care Management Consult Comment: LLE 05/01/17 12:33 Consult to Sleep Center [CONS] Routine Reason for Sleep Center: Sleep Center Physician Consult Comment: Sleep disorder concerning for sleep apnea Discharging clinician: Wilbert De León
[2017-05-05] MEDS: INSULIN LISPRO 100 UNIT/ML SUBCUT SCH ×2 (08:38→11:55)
[2017-05-05] MEDS: MAGNESIUM OXIDE 400 MG TABLET PO SCH (09:32)
[2017-05-05] MEDS: ISOSORBIDE MONONITRATE 30 MG TABLET PO SCH (09:32)
[2017-05-05] MEDS: CARVEDILOL 25 MG TABLET PO SCH (09:32)
[2017-05-05] MEDS: FERROUS SULFATE 325 MG TABLET PO SCH (09:32)
[2017-05-05] MEDS: FUROSEMIDE 40 MG/4 ML VIAL IV SCH (09:32)
[2017-05-05] MEDS: amLODIPine 10 MG TABLET PO SCH (09:32)
[2017-05-05] MEDS: SILVER SULFADIAZINE 1% CREAM 25 GM TUBE TOP SCH (09:33)
[2017-05-05] MEDS: ENOXAPARIN 30 MG/0.3 ML SYRINGE SUBCUT SCH (09:35)
[2017-05-05 12:16] VITALS: BP 148/83
--- NOTE | 2017-05-05 14:28 | Nephrology Progress Note ---
Nephrology - PN: Subj Interval history: No shortness of breath. Edema decreased. Exam (PN)-Nephrology - Vital Signs Vital signs: Period Temp Pulse Resp BP Sys/Gray Pulse Ox Last 24 Hr 97.3 F-98.2 F 64-80 18-20 121-154/66-84 95-97 Exam: ENT: Normal Cardiovascular: Regular rate and rhythm. No murmur rub or gallop Lungs: Clear Extremities: 1-2+ edema - Lab 05/05/17 04:30 05/05/17 04:30 Most recent lab results Calcium 8.1 MG/DL (8.5-10.1) L 05/05/17 04:30 Magnesium 2.1 MG/DL (1.8-2.4) 05/05/17 04:30 Assessment and Plan (1) Chronic renal failure, stage 4 (severe) Status: Chronic Assessment and plan: 56-year-old man with: * CRF 4. Creatinine was 3.8 on 04/01/2017. Creatinine slightly higher with diuresis. Weight is now 110.3 kg * Anasarca. Much improved. Discharge plans noted * Cardiomyopathy * Diabetes mellitus * Hypertension Current Visit: Yes (2) Anasarca Status: Acute Current Visit: Yes (3) CHF (congestive heart failure) Status: Acute Current Visit: Yes Qualifiers: Congestive heart failure type: combined Congestive heart failure chronicity : acute on chronic Qualified Code(s): I50.43 - Acute on chronic combined systolic (congestive) and diastolic (congestive) heart failure (4) Cardiomyopathy Status: Chronic Current Visit: Yes Qualifiers: Cardiomyopathy type: unspecified Qualified Code(s): I42.9 - Cardiomyopathy , unspecified (5) Nephrotic syndrome Status: Acute Current Visit: Yes (6) Anemia Problem details: Microcytic. Check FeSat, If <20% consider IV replacement with iron sucrose, 200mg daily x 5 Status: Chronic Current Visit: Yes Qualifiers: Anemia type: iron deficiency Specialty Discharge - Follow Up or Referrals Follow up with: Mel Ch MD [Physician] - 05/29/17 8:20 am () Romel Gordon MD [Physician] - 08/05/17 1:00 pm
== END 2017-05-05 15:16 | disposition home or self-care (01) | DRG 291 ==
LOC: N.ED 13:08 → N.EDINP 15:53 → N.5E 18:04

== ENCOUNTER 2017-06-04 17:54 | Inpatient (IN) ==
[2017-06-04 19:20] LABS: Basophils % 0.5 % (0.0-0.8); Eosinophils # 0.1 10*3/uL (0.0-0.87); Eosinophils % 1.6 % (0.00-10.9); Hematocrit 22.7 VOL% (42.0-52.0); Hemoglobin 7.3 GM/DL (14.0-18.0); Immature Granulocytes % 0.6 %; Immature Granulocytes Absolute 0.04 #; Lymphocytes # 0.6 10*3/uL (1.4-4.0); Lymphocytes % 10.1 % (21.2-54.2); Mean Corpuscular HGB Conc 32.2 GM/DL (32-36); Mean Corpuscular Hemoglobin 21 PG (27-34); Mean Corpuscular Volume 64.9 FL (87-102); Mean Platelet Volume 10.4 FL (9.6-12.0); Monocytes # 0.9 10*3/uL (0.11-0.8); Monocytes % 14.1 % (1.7-12.7); Neutrophils # 4.5 10*3/uL (1.4-7.4); Neutrophils % 73.1 % (38.7-73.9); Platelet Count 172 T/CUMM (130-400); Red Cell Distribution Width 16.8 % (9.3-17.3); White Blood Count 6.2 T/CUMM (4-12)
[2017-06-04 19:36] LABS: Bilirubin,Total 0.6 MG/DL (0.2-1.0); Calcium 8.3 MG/DL (8.5-10.1); Osmolality,Calculated 305.4 MOS/KG (273-304); Potassium 3.9 MMOL/L (3.5-5.1)
[2017-06-04] MEDS ORDERED: ONDANSETRON 4 MG/2 ML VIAL IV STA (20:32)
[2017-06-04] MEDS ORDERED: SODIUM CHLORIDE 0.9% 500 ML IV STA (20:32)
[2017-06-04] MEDS ORDERED: ONDANSETRON 4 MG/2 ML VIAL ONE (20:40)
[2017-06-04] MEDS ORDERED: ONDANSETRON 4 MG/2 ML VIAL IV PRN (22:50)
[2017-06-04] MEDS ORDERED: GLUCAGON 1 MG VIAL IM PRN (22:50)
[2017-06-04] MEDS ORDERED: SODIUM CHLORIDE 0.9% 1,000 ML IV PRN (22:50)
[2017-06-04] MEDS ORDERED: DEXTROSE 50% 25 GM/50 ML VIAL IV PRN (22:50)
[2017-06-04 23:37] LABS: INR 1.2; PT Patient Result 12.8 SECS; Partial Thromboplastin Time 28.8 SECS (0-40)
[2017-06-05] MEDS: INSULIN LISPRO 100 UNIT/ML SUBCUT SCH ×4 (00:23→18:14)
[2017-06-05] MEDS: ENOXAPARIN 30 MG/0.3 ML SYRINGE SUBCUT SCH ×2 (00:30→21:17)
[2017-06-05 01:31] LABS: Apearance,Urine CLEAR (Clear); Bilirubin,Urine Negative (Negative); Blood, Urine Negative (Negative); Glucose,Urine (UA) 50 mg/dL (Negative); Hyaline Casts,Urine 1 /LPF (0-3); Ketones,Urine Negative (Negative); Mucus,Urine Occasional /LPF (Occasional); Nitrite,Urine Negative (Negative); Protein,Urine >=500 MG/DL; RBC,Urine 10 /HPF (0-4); Urine Color Yellow (Yellow); Urine Specific Gravity 1.009 (1.001-1.035); Urine Urobilinogen < 2.0 EU/DL (0.2-1.0); WBC,Urine 2 /HPF (0-6)
[2017-06-05 08:32] LABS: Hematocrit 23.9 VOL% (42.0-52.0); Hemoglobin 7.6 GM/DL (14.0-18.0)
[2017-06-05 09:01] LABS: Calcium 8.3 MG/DL (8.5-10.1); Osmolality,Calculated 310.3 MOS/KG (273-304); Potassium 3.6 MMOL/L (3.5-5.1)
[2017-06-05] MEDS: FUROSEMIDE 100 MG/10 ML VIAL IV SCH (09:09)
[2017-06-05] MEDS: ISOSORBIDE MONONITRATE 30 MG TABLET PO SCH ×2 (10:24→21:16)
[2017-06-05] MEDS: DOCUSATE SODIUM 100 MG CAPSULE PO SCH ×2 (10:24→21:15)
[2017-06-05] MEDS: FERROUS SULFATE 325 MG TABLET PO SCH (10:25)
[2017-06-05] MEDS: amLODIPine 10 MG TABLET PO SCH (10:25)
[2017-06-05] MEDS: PANTOPRAZOLE 40 MG TABLET PO SCH (10:26)
[2017-06-05] MEDS: CARVEDILOL 25 MG TABLET PO SCH ×2 (10:26→21:15)
[2017-06-05] MEDS: ATORVASTATIN 10 MG TABLET PO SCH (21:16)
[2017-06-06] MEDS: INSULIN LISPRO 100 UNIT/ML SUBCUT SCH ×5 (00:47→23:59)
[2017-06-06 02:40] LABS: Basophils % 0.7 % (0.0-0.8); Eosinophils # 0.1 10*3/uL (0.0-0.87); Eosinophils % 1.4 % (0.00-10.9); Hematocrit 23.2 VOL% (42.0-52.0); Hemoglobin 7.4 GM/DL (14.0-18.0); Immature Granulocytes % 0.5 %; Immature Granulocytes Absolute 0.03 #; Lymphocytes # 0.8 10*3/uL (1.4-4.0); Lymphocytes % 13.8 % (21.2-54.2); Mean Corpuscular HGB Conc 31.9 GM/DL (32-36); Mean Corpuscular Hemoglobin 21 PG (27-34); Mean Corpuscular Volume 66.3 FL (87-102); Monocytes # 0.9 10*3/uL (0.11-0.8); Monocytes % 15.6 % (1.7-12.7); Neutrophils # 3.8 10*3/uL (1.4-7.4); Platelet Count 155 T/CUMM (130-400); Red Cell Distribution Width 17.2 % (9.3-17.3); White Blood Count 5.7 T/CUMM (4-12)
[2017-06-06 03:09] LABS: Osmolality,Calculated 304.4 MOS/KG (273-304); Potassium 3.7 MMOL/L (3.5-5.1)
[2017-06-06 06:07] LABS: Platelet Estimate Adequate
[2017-06-06 06:08] LABS: Anisocytosis 2+; Microcytosis 2+
[2017-06-06 06:09] LABS: Target Cells 1+
[2017-06-06] MEDS ORDERED: SODIUM CHLORIDE 0.9% 1,000 ML IV PRN (07:36)
[2017-06-06] MEDS: PANTOPRAZOLE 40 MG TABLET PO SCH (09:28)
[2017-06-06] MEDS: ASPIRIN 325 MG TABLET PO SCH (09:28)
[2017-06-06] MEDS: CARVEDILOL 25 MG TABLET PO SCH ×2 (09:28→20:59)
[2017-06-06] MEDS: FERROUS SULFATE 325 MG TABLET PO SCH (09:28)
[2017-06-06] MEDS: ISOSORBIDE MONONITRATE 30 MG TABLET PO SCH ×2 (09:28→20:59)
[2017-06-06] MEDS: DOCUSATE SODIUM 100 MG CAPSULE PO SCH ×2 (09:28→20:59)
[2017-06-06] MEDS: amLODIPine 10 MG TABLET PO SCH (09:28)
[2017-06-06] MEDS: FUROSEMIDE 100 MG/10 ML VIAL IV SCH (10:33)
[2017-06-06 15:00] LABS: Hematocrit 27.5 VOL% (42.0-52.0)
[2017-06-06] MEDS: ENOXAPARIN 30 MG/0.3 ML SYRINGE SUBCUT SCH (20:58)
[2017-06-06] MEDS: ATORVASTATIN 10 MG TABLET PO SCH (20:59)
[2017-06-07 06:22] LABS: Osmolality,Calculated 303.4 MOS/KG (273-304); Potassium 3.7 MMOL/L (3.5-5.1)
[2017-06-07] MEDS: INSULIN LISPRO 100 UNIT/ML SUBCUT SCH ×3 (07:26→17:45)
[2017-06-07] MEDS: PANTOPRAZOLE 40 MG TABLET PO SCH (09:03)
[2017-06-07] MEDS: ASPIRIN 325 MG TABLET PO SCH (09:03)
[2017-06-07] MEDS: amLODIPine 10 MG TABLET PO SCH (09:03)
[2017-06-07] MEDS: FERROUS SULFATE 325 MG TABLET PO SCH (09:03)
[2017-06-07] MEDS: CARVEDILOL 25 MG TABLET PO SCH ×2 (09:03→20:33)
[2017-06-07] MEDS: DOCUSATE SODIUM 100 MG CAPSULE PO SCH ×2 (09:03→20:33)
[2017-06-07] MEDS: FUROSEMIDE 100 MG/10 ML VIAL IV SCH (09:03)
[2017-06-07] MEDS: ISOSORBIDE MONONITRATE 30 MG TABLET PO SCH ×2 (09:03→20:33)
[2017-06-07] MEDS: ATORVASTATIN 10 MG TABLET PO SCH (20:33)
[2017-06-07] MEDS: ENOXAPARIN 30 MG/0.3 ML SYRINGE SUBCUT SCH (20:33)
[2017-06-08 07:23] LABS: Albumin 2.7 G/DL (3.4-5.0); Bilirubin,Total 0.6 MG/DL (0.2-1.0); Calcium 7.8 MG/DL (8.5-10.1); Osmolality,Calculated 301.5 MOS/KG (273-304); Phosphorous 4.6 MG/DL (2.5-4.9); Potassium 3.8 MMOL/L (3.5-5.1); Total Protein 6.2 G/DL (6.4-8.3)
[2017-06-08] MEDS: INSULIN LISPRO 100 UNIT/ML SUBCUT SCH ×4 (07:55→23:19)
[2017-06-08 08:03] LABS: Basophils % 0.4 % (0.0-0.8); Eosinophils # 0.1 10*3/uL (0.0-0.87); Eosinophils % 1.8 % (0.00-10.9); Hematocrit 27.2 VOL% (42.0-52.0); Hemoglobin 8.9 GM/DL (14.0-18.0); Immature Granulocytes % 0.7 %; Immature Granulocytes Absolute 0.05 #; Lymphocytes # 0.8 10*3/uL (1.4-4.0); Lymphocytes % 10.1 % (21.2-54.2); Mean Corpuscular HGB Conc 32.7 GM/DL (32-36); Mean Corpuscular Hemoglobin 22 PG (27-34); Mean Corpuscular Volume 68.2 FL (87-102); Monocytes # 1.1 10*3/uL (0.11-0.8); Neutrophils # 5.6 10*3/uL (1.4-7.4); Red Blood Count 3.99 MC/CUMM (3.8-5.5); Red Cell Distribution Width 18.6 % (9.3-17.3); White Blood Count 7.6 T/CUMM (4-12)
[2017-06-08 08:04] LABS: Platelet Count 150 T/CUMM (130-400)
[2017-06-08] MEDS: DOCUSATE SODIUM 100 MG CAPSULE PO SCH ×2 (08:32→21:06)
[2017-06-08] MEDS: PANTOPRAZOLE 40 MG TABLET PO SCH (08:32)
[2017-06-08] MEDS: ISOSORBIDE MONONITRATE 30 MG TABLET PO SCH ×2 (08:32→21:07)
[2017-06-08] MEDS: ASPIRIN 325 MG TABLET PO SCH (08:32)
[2017-06-08] MEDS: FERROUS SULFATE 325 MG TABLET PO SCH (08:32)
[2017-06-08] MEDS: amLODIPine 10 MG TABLET PO SCH (08:32)
[2017-06-08] MEDS: FUROSEMIDE 100 MG/10 ML VIAL IV SCH (08:33)
[2017-06-08] MEDS: CARVEDILOL 25 MG TABLET PO SCH ×2 (08:33→21:06)
[2017-06-08] MEDS: ATORVASTATIN 10 MG TABLET PO SCH (21:06)
[2017-06-08] MEDS: ENOXAPARIN 30 MG/0.3 ML SYRINGE SUBCUT SCH (21:06)
[2017-06-09] MEDS: INSULIN LISPRO 100 UNIT/ML SUBCUT SCH ×4 (06:15→23:35)
[2017-06-09] MEDS: ASPIRIN 325 MG TABLET PO SCH (09:35)
[2017-06-09] MEDS: FERROUS SULFATE 325 MG TABLET PO SCH (09:35)
[2017-06-09] MEDS: amLODIPine 10 MG TABLET PO SCH (09:35)
[2017-06-09] MEDS: CARVEDILOL 25 MG TABLET PO SCH ×2 (09:35→22:20)
[2017-06-09] MEDS: ISOSORBIDE MONONITRATE 30 MG TABLET PO SCH ×2 (09:35→22:20)
[2017-06-09] MEDS: DOCUSATE SODIUM 100 MG CAPSULE PO SCH ×2 (09:35→22:20)
[2017-06-09] MEDS: PANTOPRAZOLE 40 MG TABLET PO SCH (09:35)
[2017-06-09] MEDS: FUROSEMIDE 100 MG/10 ML VIAL IV SCH ×2 (09:36→22:19)
[2017-06-09] MEDS: ENOXAPARIN 30 MG/0.3 ML SYRINGE SUBCUT SCH (22:18)
[2017-06-09] MEDS: ATORVASTATIN 10 MG TABLET PO SCH (22:19)
[2017-06-10 06:26] LABS: Calcium 8.2 MG/DL (8.5-10.1); Osmolality,Calculated 300.5 MOS/KG (273-304); Potassium 3.7 MMOL/L (3.5-5.1)
[2017-06-10] MEDS: INSULIN LISPRO 100 UNIT/ML SUBCUT SCH ×3 (06:57→18:07)
[2017-06-10] MEDS: FUROSEMIDE 100 MG/10 ML VIAL IV SCH (09:07)
[2017-06-10] MEDS: PANTOPRAZOLE 40 MG TABLET PO SCH (09:08)
[2017-06-10] MEDS: CARVEDILOL 25 MG TABLET PO SCH (09:08)
[2017-06-10] MEDS: ASPIRIN 325 MG TABLET PO SCH (09:08)
[2017-06-10] MEDS: ISOSORBIDE MONONITRATE 30 MG TABLET PO SCH (09:08)
[2017-06-10] MEDS: amLODIPine 10 MG TABLET PO SCH (09:08)
[2017-06-10] MEDS: DOCUSATE SODIUM 100 MG CAPSULE PO SCH (09:08)
[2017-06-10] MEDS: FERROUS SULFATE 325 MG TABLET PO SCH (09:08)
[2017-06-10 11:50] VITALS: BP 133/58
== END 2017-06-10 18:43 | disposition home health service (06) | DRG 682 ==
LOC: N.ED 17:54 → N.EDINP 21:14 → SUATTDRO 21:14 → N.2E 21:30
PROVIDERS: ADMIT Family Medicine; ATTEND Internal Medicine

== ENCOUNTER 2017-08-18 18:57 | Inpatient (IN) ==
[2017-08-18 19:55] LABS: Basophils % 0.3 % (0.0-0.8); Eosinophils # 0.1 10*3/uL (0.0-0.87); Eosinophils % 1.4 % (0.00-10.9); Hematocrit 22.6 VOL% (42.0-52.0); Hemoglobin 7.4 GM/DL (14.0-18.0); Immature Granulocytes % 0.7 %; Immature Granulocytes Absolute 0.05 #; Lymphocytes # 0.6 10*3/uL (1.4-4.0); Lymphocytes % 7.8 % (21.2-54.2); Mean Corpuscular HGB Conc 32.7 GM/DL (32-36); Mean Corpuscular Hemoglobin 23 PG (27-34); Mean Corpuscular Volume 70.6 FL (87-102); Mean Platelet Volume 10.7 FL (9.6-12.0); Monocytes # 0.9 10*3/uL (0.11-0.8); Monocytes % 12.9 % (1.7-12.7); Neutrophils # 5.6 10*3/uL (1.4-7.4); Neutrophils % 76.9 % (38.7-73.9); Platelet Count 187 T/CUMM (130-400); White Blood Count 7.3 T/CUMM (4-12)
[2017-08-18 20:30] LABS: Albumin 2.8 G/DL (3.4-5.0); Bilirubin,Total 0.6 MG/DL (0.2-1.0); Calcium 7.8 MG/DL (8.5-10.1); Osmolality,Calculated 299.4 MOS/KG (273-304); Total Protein 6.9 G/DL (6.4-8.3)
[2017-08-18] MEDS ORDERED: ONDANSETRON 4 MG/2 ML VIAL IV PRN (21:47)
[2017-08-18] MEDS ORDERED: ACETAMINOPHEN 325 MG TABLET PO PRN (21:47)
[2017-08-18] MEDS ORDERED: MAGNESIUM SULF RIDER 2 GM in PREMIX 1 EACH IV PRN (21:54)
[2017-08-18] MEDS ORDERED: MAGNESIUM SULF RIDER 4 GM in PREMIX 1 EACH IV PRN (21:54)
[2017-08-18] MEDS ORDERED: GLUCAGON 1 MG VIAL IM PRN (21:57)
[2017-08-18] MEDS ORDERED: DEXTROSE 50% 25 GM/50 ML VIAL IV PRN (21:57)
[2017-08-18] MEDS ORDERED: ENOXAPARIN 30 MG/0.3 ML SYRINGE ONE (22:30)
[2017-08-18] MEDS: ENOXAPARIN 30 MG/0.3 ML SYRINGE SUBCUT SCH (22:36)
[2017-08-18] MEDS ORDERED: POTASSIUM CHLORIDE 20 MEQ TABLET PO PRN (23:43)
[2017-08-18] MEDS ORDERED: POTASSIUM CHLORIDE 20 MEQ TABLET PO ONE (23:46)
[2017-08-19 04:49] LABS: Basophils % 0.3 % (0.0-0.8); Eosinophils # 0.1 10*3/uL (0.0-0.87); Eosinophils % 1.5 % (0.00-10.9); Hematocrit 22.5 VOL% (42.0-52.0); Hemoglobin 7.2 GM/DL (14.0-18.0); Immature Granulocytes % 0.7 %; Immature Granulocytes Absolute 0.04 #; Lymphocytes # 0.6 10*3/uL (1.4-4.0); Lymphocytes % 9.5 % (21.2-54.2); Mean Corpuscular Hemoglobin 23 PG (27-34); Mean Corpuscular Volume 70.8 FL (87-102); Mean Platelet Volume 11.4 FL (9.6-12.0); Monocytes # 0.8 10*3/uL (0.11-0.8); Monocytes % 13.3 % (1.7-12.7); Neutrophils # 4.5 10*3/uL (1.4-7.4); Neutrophils % 74.7 % (38.7-73.9); Platelet Count 187 T/CUMM (130-400); Red Blood Count 3.18 MC/CUMM (3.8-5.5); Red Cell Distribution Width 19.1 % (9.3-17.3)
[2017-08-19 05:07] LABS: Giant Platelets Few; Hypochromasia 1+; Ovalocytes Slight; Platelet Estimate Normal
[2017-08-19 05:08] LABS: Microcytosis Slight
[2017-08-19 05:19] LABS: Albumin 2.7 G/DL (3.4-5.0); Bilirubin,Total 0.5 MG/DL (0.2-1.0); Calcium 7.7 MG/DL (8.5-10.1); Osmolality,Calculated 297.5 MOS/KG (273-304); Total Protein 6.4 G/DL (6.4-8.3)
[2017-08-19 07:41] LABS: Amorphous Crystals,Urine Occasional /HPF (Few); Apearance,Urine Slightly Hazy (Clear); Bilirubin,Urine Negative (Negative); Blood, Urine Negative (Negative); Glucose,Urine (UA) 50 mg/dL (Negative); Ketones,Urine Negative (Negative); Mucus,Urine Occasional /LPF (Occasional); Nitrite,Urine Negative (Negative); Protein,Urine >=500 MG/DL; RBC,Urine 16 /HPF (0-4); Squamous Epithelial Cell,Urine Occasional /HPF (0-10); Urine Color Yellow (Yellow); Urine Specific Gravity 1.009 (1.001-1.035); Urine Urobilinogen < 2.0 EU/DL (0.2-1.0); WBC,Urine 6 /HPF (0-6)
[2017-08-19] MEDS ORDERED: FUROSEMIDE 40 MG/4 ML VIAL IV SCH (08:00)
[2017-08-19] MEDS: INSULIN REGULAR 100 UNIT/ML SUBCUT SCH ×4 (08:06→21:02)
[2017-08-19] MEDS ORDERED: PANTOPRAZOLE 40 MG TABLET PO SCH (09:00)
[2017-08-19] MEDS ORDERED: CARVEDILOL 6.25 MG TABLET PO SCH (09:00)
[2017-08-19] MEDS: ASPIRIN CHEW 81 MG TABLET PO SCH (09:17)
[2017-08-19] MEDS: ISOSORBIDE MONONITRATE 30 MG TABLET PO SCH (09:52)
[2017-08-19] MEDS: FERROUS SULFATE 325 MG TABLET PO SCH (09:52)
[2017-08-19] MEDS ORDERED: POTASSIUM CHLORIDE 20 MEQ TABLET PO STA (10:23)
[2017-08-19] MEDS: FUROSEMIDE 40 MG/4 ML VIAL IV SCH (15:21)
[2017-08-19 16:10] LABS: Calcium 7.8 MG/DL (8.5-10.1); Osmolality,Calculated 298.4 MOS/KG (273-304); Potassium 3.2 MMOL/L (3.5-5.1)
[2017-08-19] MEDS ORDERED: POTASSIUM CHLORIDE 20 MEQ TABLET PO ONE (16:30)
[2017-08-19] MEDS ORDERED: SODIUM CHLORIDE 0.9% 1,000 ML IV PRN (16:34)
[2017-08-19] MEDS: ATORVASTATIN 10 MG TABLET PO SCH (21:05)
[2017-08-19] MEDS: CARVEDILOL 25 MG TABLET PO SCH (21:05)
[2017-08-19] MEDS: ENOXAPARIN 30 MG/0.3 ML SYRINGE SUBCUT SCH (21:08)
[2017-08-20 06:23] LABS: Basophils % 0.4 % (0.0-0.8); Eosinophils # 0.1 10*3/uL (0.0-0.87); Eosinophils % 1.5 % (0.00-10.9); Hematocrit 21.3 VOL% (42.0-52.0); Hemoglobin 6.9 GM/DL (14.0-18.0); Immature Granulocytes % 0.4 %; Immature Granulocytes Absolute 0.03 #; Lymphocytes # 0.6 10*3/uL (1.4-4.0); Lymphocytes % 9.3 % (21.2-54.2); Mean Corpuscular HGB Conc 32.4 GM/DL (32-36); Mean Corpuscular Hemoglobin 23 PG (27-34); Mean Corpuscular Volume 71.2 FL (87-102); Mean Platelet Volume 11.5 FL (9.6-12.0); Monocytes # 0.7 10*3/uL (0.11-0.8); Monocytes % 10.5 % (1.7-12.7); Neutrophils # 5.3 10*3/uL (1.4-7.4); Neutrophils % 77.9 % (38.7-73.9); Platelet Count 167 T/CUMM (130-400); Red Blood Count 2.99 MC/CUMM (3.8-5.5); White Blood Count 6.9 T/CUMM (4-12)
[2017-08-20 06:44] LABS: Giant Platelets Few; Hypochromasia 1+; Ovalocytes Slight; Platelet Estimate Normal
[2017-08-20 06:45] LABS: Microcytosis Slight; Osmolality,Calculated 299.4 MOS/KG (273-304); Potassium 3.4 MMOL/L (3.5-5.1)
[2017-08-20] MEDS: INSULIN REGULAR 100 UNIT/ML SUBCUT SCH ×4 (08:49→22:16)
[2017-08-20] MEDS: FERROUS SULFATE 325 MG TABLET PO SCH (10:13)
[2017-08-20] MEDS: amLODIPine 10 MG TABLET PO SCH (10:13)
[2017-08-20] MEDS: CARVEDILOL 25 MG TABLET PO SCH ×2 (10:13→22:16)
[2017-08-20] MEDS: ASPIRIN CHEW 81 MG TABLET PO SCH (10:14)
[2017-08-20] MEDS: ISOSORBIDE MONONITRATE 30 MG TABLET PO SCH (10:14)
[2017-08-20] MEDS: PANTOPRAZOLE 40 MG TABLET PO SCH (10:14)
[2017-08-20] MEDS: TAMSULOSIN 0.4 MG CAPSULE PO SCH (10:14)
[2017-08-20] MEDS: FUROSEMIDE 40 MG/4 ML VIAL IV SCH ×2 (10:14→16:03)
[2017-08-20] MEDS ORDERED: SKIN HEALING OINT (AQUAPHOR) 50 GM TUBE TOP PRN (14:22)
[2017-08-20 18:58] LABS: Hematocrit 23.8 VOL% (42.0-52.0)
[2017-08-20 19:04] LABS: Hemoglobin 7.5 GM/DL (14.0-18.0)
[2017-08-20] MEDS: ATORVASTATIN 10 MG TABLET PO SCH (22:16)
[2017-08-20] MEDS: ENOXAPARIN 30 MG/0.3 ML SYRINGE SUBCUT SCH ×2 (22:17→22:19)
[2017-08-21] MEDS: ISOSORBIDE MONONITRATE 30 MG TABLET PO SCH (09:28)
[2017-08-21] MEDS: TAMSULOSIN 0.4 MG CAPSULE PO SCH (09:28)
[2017-08-21] MEDS: FERROUS SULFATE 325 MG TABLET PO SCH (09:28)
[2017-08-21] MEDS: FUROSEMIDE 40 MG/4 ML VIAL IV SCH ×2 (09:28→15:29)
[2017-08-21] MEDS: amLODIPine 10 MG TABLET PO SCH (09:28)
[2017-08-21] MEDS: ASPIRIN CHEW 81 MG TABLET PO SCH (09:28)
[2017-08-21] MEDS: PANTOPRAZOLE 40 MG TABLET PO SCH (09:28)
[2017-08-21] MEDS: CARVEDILOL 25 MG TABLET PO SCH ×2 (09:28→20:58)
[2017-08-21] MEDS: INSULIN REGULAR 100 UNIT/ML SUBCUT SCH ×4 (09:31→20:58)
[2017-08-21] MEDS ORDERED: FUROSEMIDE 100 MG/10 ML VIAL ONE ×3 (09:48→15:13)
[2017-08-21] MEDS: FLUCONAZOLE 100 MG TABLET PO SCH (17:22)
[2017-08-21] MEDS: ATORVASTATIN 10 MG TABLET PO SCH (20:57)
[2017-08-21] MEDS: ENOXAPARIN 30 MG/0.3 ML SYRINGE SUBCUT SCH (21:01)
[2017-08-22] MEDS ORDERED: FAMOTIDINE 20 MG TABLET PO ONE (06:00)
[2017-08-22] MEDS ORDERED: DIAZEPAM 2 MG TABLET PO ONE (06:00)
[2017-08-22 06:27] LABS: Basophils % 0.5 % (0.0-0.8); Eosinophils # 0.1 10*3/uL (0.0-0.87); Eosinophils % 1.4 % (0.00-10.9); Hematocrit 22.7 VOL% (42.0-52.0); Hemoglobin 7.4 GM/DL (14.0-18.0); Immature Granulocytes % 0.4 %; Immature Granulocytes Absolute 0.03 #; Lymphocytes # 0.6 10*3/uL (1.4-4.0); Lymphocytes % 7.1 % (21.2-54.2); Mean Corpuscular HGB Conc 32.6 GM/DL (32-36); Mean Corpuscular Hemoglobin 23 PG (27-34); Mean Corpuscular Volume 70.7 FL (87-102); Mean Platelet Volume 11.9 FL (9.6-12.0); Neutrophils # 6.2 10*3/uL (1.4-7.4); Neutrophils % 78.6 % (38.7-73.9); Platelet Count 172 T/CUMM (130-400); Red Blood Count 3.21 MC/CUMM (3.8-5.5); Red Cell Distribution Width 19.2 % (9.3-17.3); White Blood Count 7.9 T/CUMM (4-12)
[2017-08-22] MEDS ORDERED: HEPARIN 5,000 UNIT/1 ML VIAL ONE (06:30)
[2017-08-22] MEDS ORDERED: BUPIVACAINE 0.25% 50 ML VIAL ONE (06:30)
[2017-08-22] MEDS ORDERED: LIDOCAINE 1% 5 ML VIAL ONE (06:31)
[2017-08-22] MEDS ORDERED: THROMBIN TOPICAL (RECOMBINANT) 5,000 UNIT VIAL TOP ONE (06:40)
[2017-08-22 06:53] LABS: Calcium 7.9 MG/DL (8.5-10.1); Magnesium 2.1 MG/DL (1.8-2.4); Osmolality,Calculated 296.7 MOS/KG (273-304); Potassium 3.4 MMOL/L (3.5-5.1)
[2017-08-22] MEDS: SODIUM CHLORIDE 0.9% 250 ML IV SCH (07:00)
[2017-08-22] MEDS: INSULIN REGULAR 100 UNIT/ML SUBCUT SCH ×4 (08:17→21:56)
[2017-08-22] MEDS: PANTOPRAZOLE 40 MG TABLET PO SCH ×2 (09:25→14:11)
[2017-08-22] MEDS: FLUCONAZOLE 100 MG TABLET PO SCH ×2 (09:25→14:11)
[2017-08-22] MEDS: ISOSORBIDE MONONITRATE 30 MG TABLET PO SCH ×2 (09:25→14:11)
[2017-08-22] MEDS: CARVEDILOL 25 MG TABLET PO SCH ×3 (09:25→21:54)
[2017-08-22] MEDS: ASPIRIN CHEW 81 MG TABLET PO SCH (09:25)
[2017-08-22] MEDS: TAMSULOSIN 0.4 MG CAPSULE PO SCH ×2 (09:25→14:11)
[2017-08-22] MEDS: FERROUS SULFATE 325 MG TABLET PO SCH ×2 (09:25→14:11)
[2017-08-22] MEDS: amLODIPine 10 MG TABLET PO SCH ×2 (09:25→14:11)
[2017-08-22] MEDS: FUROSEMIDE 40 MG/4 ML VIAL IV SCH ×2 (09:29→17:23)
[2017-08-22] MEDS ORDERED: ceFAZolin 1,000 MG VIAL ONE (10:48)
[2017-08-22] MEDS ORDERED: KETAMINE 500 MG/10 ML VIAL ONE (12:55)
[2017-08-22 15:07] LABS: Hepatitis A Ab IgM Quant 0.11 Index; Hepatitis A Ab IgM Result Negative (Negative); Hepatitis B Core IgM Quant 0.15 Index; Hepatitis B Core IgM Result Negative (Negative); Hepatitis B Surface Ag Quant < 0.10 Index; Hepatitis B Surface Ag Result Negative (Negative); Hepatitis C Virus Ab Quant 0.07 Index; Hepatitis C Virus Ab Result Negative (Negative)
[2017-08-22] MEDS ORDERED: SODIUM CHLORIDE 0.9% 1,000 ML IV PRN ×2 (18:16→20:22)
[2017-08-22] MEDS: ATORVASTATIN 10 MG TABLET PO SCH (21:54)
[2017-08-22] MEDS: ENOXAPARIN 30 MG/0.3 ML SYRINGE SUBCUT SCH (21:58)
[2017-08-23] MEDS: SODIUM CHLORIDE 0.9% 250 ML IV SCH ×2 (02:02→14:59)
[2017-08-23 04:34] LABS: Hematocrit 24.2 VOL% (42.0-52.0); Hemoglobin 7.7 GM/DL (14.0-18.0)
[2017-08-23] MEDS: INSULIN REGULAR 100 UNIT/ML SUBCUT SCH ×4 (08:38→22:15)
[2017-08-23] MEDS: FERROUS SULFATE 325 MG TABLET PO SCH (08:39)
[2017-08-23] MEDS: FUROSEMIDE 40 MG/4 ML VIAL IV SCH ×2 (08:39→14:59)
[2017-08-23] MEDS: TAMSULOSIN 0.4 MG CAPSULE PO SCH (08:39)
[2017-08-23] MEDS: ASPIRIN CHEW 81 MG TABLET PO SCH (08:39)
[2017-08-23] MEDS: PANTOPRAZOLE 40 MG TABLET PO SCH (08:39)
[2017-08-23] MEDS: amLODIPine 10 MG TABLET PO SCH (08:39)
[2017-08-23] MEDS: CARVEDILOL 25 MG TABLET PO SCH ×2 (08:39→22:40)
[2017-08-23] MEDS: FLUCONAZOLE 100 MG TABLET PO SCH (08:39)
[2017-08-23] MEDS: ISOSORBIDE MONONITRATE 30 MG TABLET PO SCH (08:39)
[2017-08-23] MEDS ORDERED: HEPARIN 10,000 UNIT/10 ML VIAL IV PRN (10:07)
[2017-08-23] MEDS: ENOXAPARIN 30 MG/0.3 ML SYRINGE SUBCUT SCH (22:16)
[2017-08-23] MEDS: ATORVASTATIN 10 MG TABLET PO SCH (22:40)
[2017-08-24] MEDS: SODIUM CHLORIDE 0.9% 250 ML IV SCH ×2 (05:34→15:34)
[2017-08-24 06:30] LABS: Basophils % 0.3 % (0.0-0.8); Eosinophils # 0.1 10*3/uL (0.0-0.87); Eosinophils % 1.4 % (0.00-10.9); Hematocrit 25.7 VOL% (42.0-52.0); Hemoglobin 8.4 GM/DL (14.0-18.0); Immature Granulocytes % 0.4 %; Immature Granulocytes Absolute 0.03 #; Lymphocytes # 0.7 10*3/uL (1.4-4.0); Lymphocytes % 9.1 % (21.2-54.2); Mean Corpuscular HGB Conc 32.7 GM/DL (32-36); Mean Corpuscular Hemoglobin 24 PG (27-34); Monocytes # 1.1 10*3/uL (0.11-0.8); Monocytes % 15.1 % (1.7-12.7); Neutrophils # 5.4 10*3/uL (1.4-7.4); Neutrophils % 73.7 % (38.7-73.9); Platelet Count 119 T/CUMM (130-400); Red Blood Count 3.52 MC/CUMM (3.8-5.5); Red Cell Distribution Width 19.9 % (9.3-17.3); White Blood Count 7.3 T/CUMM (4-12)
[2017-08-24 07:27] LABS: Giant Platelets Few; Hypochromasia 1+; Ovalocytes Slight; Platelet Estimate Decreased
[2017-08-24 07:28] LABS: Microcytosis Slight
[2017-08-24] MEDS: INSULIN REGULAR 100 UNIT/ML SUBCUT SCH ×4 (07:44→21:16)
[2017-08-24] MEDS: amLODIPine 10 MG TABLET PO SCH (09:17)
[2017-08-24] MEDS: PANTOPRAZOLE 40 MG TABLET PO SCH (09:17)
[2017-08-24] MEDS: CARVEDILOL 25 MG TABLET PO SCH ×2 (09:17→21:16)
[2017-08-24] MEDS: FERROUS SULFATE 325 MG TABLET PO SCH (09:17)
[2017-08-24] MEDS: ASPIRIN CHEW 81 MG TABLET PO SCH (09:17)
[2017-08-24] MEDS: TAMSULOSIN 0.4 MG CAPSULE PO SCH (09:17)
[2017-08-24] MEDS: ISOSORBIDE MONONITRATE 30 MG TABLET PO SCH (09:17)
[2017-08-24] MEDS: FLUCONAZOLE 100 MG TABLET PO SCH (09:17)
[2017-08-24] MEDS: ENOXAPARIN 30 MG/0.3 ML SYRINGE SUBCUT SCH (21:16)
[2017-08-24] MEDS: ATORVASTATIN 10 MG TABLET PO SCH (21:16)
[2017-08-24] MEDS ORDERED: oxyCODONE IR 5 MG TABLET PO PRN (23:10)
[2017-08-25] MEDS: SODIUM CHLORIDE 0.9% 250 ML IV SCH (06:21)
[2017-08-25] MEDS: amLODIPine 10 MG TABLET PO SCH (08:46)
[2017-08-25] MEDS: FLUCONAZOLE 100 MG TABLET PO SCH (08:46)
[2017-08-25] MEDS: TAMSULOSIN 0.4 MG CAPSULE PO SCH (08:46)
[2017-08-25] MEDS: CARVEDILOL 25 MG TABLET PO SCH ×2 (08:46→20:57)
[2017-08-25] MEDS: PANTOPRAZOLE 40 MG TABLET PO SCH (08:46)
[2017-08-25] MEDS: ISOSORBIDE MONONITRATE 30 MG TABLET PO SCH (08:46)
[2017-08-25] MEDS: FERROUS SULFATE 325 MG TABLET PO SCH (08:46)
[2017-08-25] MEDS: ASPIRIN CHEW 81 MG TABLET PO SCH (08:49)
[2017-08-25] MEDS: INSULIN REGULAR 100 UNIT/ML SUBCUT SCH ×4 (08:49→21:41)
[2017-08-25] MEDS: CITALOPRAM 20 MG TABLET PO SCH (20:56)
[2017-08-25] MEDS: ATORVASTATIN 10 MG TABLET PO SCH (20:56)
[2017-08-25] MEDS: ENOXAPARIN 30 MG/0.3 ML SYRINGE SUBCUT SCH (20:59)
[2017-08-26] MEDS: INSULIN REGULAR 100 UNIT/ML SUBCUT SCH ×4 (08:28→21:11)
[2017-08-26] MEDS: PANTOPRAZOLE 40 MG TABLET PO SCH (09:15)
[2017-08-26] MEDS: FERROUS SULFATE 325 MG TABLET PO SCH (09:15)
[2017-08-26] MEDS: ISOSORBIDE MONONITRATE 30 MG TABLET PO SCH (09:15)
[2017-08-26] MEDS: CARVEDILOL 25 MG TABLET PO SCH ×2 (09:15→21:08)
[2017-08-26] MEDS: TAMSULOSIN 0.4 MG CAPSULE PO SCH (09:15)
[2017-08-26] MEDS: amLODIPine 10 MG TABLET PO SCH (09:19)
[2017-08-26] MEDS: ASPIRIN CHEW 81 MG TABLET PO SCH (11:04)
[2017-08-26 11:50] LABS: Basophils % 0.4 % (0.0-0.8); Eosinophils # 0.1 10*3/uL (0.0-0.87); Eosinophils % 1.1 % (0.00-10.9); Hematocrit 25.4 VOL% (42.0-52.0); Hemoglobin 7.9 GM/DL (14.0-18.0); Immature Granulocytes % 0.5 %; Immature Granulocytes Absolute 0.04 #; Lymphocytes # 0.6 10*3/uL (1.4-4.0); Lymphocytes % 7.4 % (21.2-54.2); Mean Corpuscular HGB Conc 31.1 GM/DL (32-36); Mean Corpuscular Hemoglobin 24 PG (27-34); Mean Platelet Volume 11.6 FL (9.6-12.0); Monocytes # 1.1 10*3/uL (0.11-0.8); Monocytes % 14.3 % (1.7-12.7); Neutrophils % 76.3 % (38.7-73.9); Platelet Count 123 T/CUMM (130-400); Red Cell Distribution Width 19.9 % (9.3-17.3); White Blood Count 7.9 T/CUMM (4-12)
[2017-08-26 12:01] LABS: Calcium 8.1 MG/DL (8.5-10.1); Osmolality,Calculated 282.1 MOS/KG (273-304); Potassium 4.9 MMOL/L (3.5-5.1)
[2017-08-26] MEDS: CITALOPRAM 20 MG TABLET PO SCH (21:08)
[2017-08-26] MEDS: ATORVASTATIN 10 MG TABLET PO SCH (21:08)
[2017-08-27] MEDS ORDERED: ceFAZolin 1,000 MG in SYRINGE 1 EACH IV ONE ×2 (06:00→12:30)
[2017-08-27] MEDS: ISOSORBIDE MONONITRATE 30 MG TABLET PO SCH (08:18)
[2017-08-27] MEDS: ASPIRIN CHEW 81 MG TABLET PO SCH (08:18)
[2017-08-27] MEDS: INSULIN REGULAR 100 UNIT/ML SUBCUT SCH ×4 (08:18→20:39)
[2017-08-27] MEDS: FERROUS SULFATE 325 MG TABLET PO SCH (08:18)
[2017-08-27] MEDS: TAMSULOSIN 0.4 MG CAPSULE PO SCH (08:18)
[2017-08-27] MEDS: CARVEDILOL 25 MG TABLET PO SCH ×2 (08:18→20:34)
[2017-08-27] MEDS: PANTOPRAZOLE 40 MG TABLET PO SCH (08:19)
[2017-08-27] MEDS: amLODIPine 10 MG TABLET PO SCH (08:19)
[2017-08-27] MEDS: CITALOPRAM 20 MG TABLET PO SCH (20:34)
[2017-08-27] MEDS: ATORVASTATIN 10 MG TABLET PO SCH (20:35)
[2017-08-28] MEDS: ISOSORBIDE MONONITRATE 30 MG TABLET PO SCH (08:25)
[2017-08-28] MEDS: amLODIPine 10 MG TABLET PO SCH (08:25)
[2017-08-28] MEDS: CARVEDILOL 25 MG TABLET PO SCH ×2 (08:25→21:37)
[2017-08-28] MEDS: PANTOPRAZOLE 40 MG TABLET PO SCH (08:26)
[2017-08-28] MEDS: TAMSULOSIN 0.4 MG CAPSULE PO SCH (08:26)
[2017-08-28] MEDS: ASPIRIN CHEW 81 MG TABLET PO SCH (08:26)
[2017-08-28] MEDS: FERROUS SULFATE 325 MG TABLET PO SCH (08:29)
[2017-08-28] MEDS: INSULIN REGULAR 100 UNIT/ML SUBCUT SCH ×4 (08:46→21:34)
[2017-08-28] MEDS: CITALOPRAM 20 MG TABLET PO SCH (21:37)
[2017-08-28] MEDS: ATORVASTATIN 10 MG TABLET PO SCH (21:37)
[2017-08-29 06:03] LABS: Basophils % 0.4 % (0.0-0.8); Eosinophils # 0.1 10*3/uL (0.0-0.87); Eosinophils % 1.1 % (0.00-10.9); Hematocrit 24.2 VOL% (42.0-52.0); Hemoglobin 7.7 GM/DL (14.0-18.0); Immature Granulocytes % 0.7 %; Immature Granulocytes Absolute 0.05 #; Lymphocytes # 0.5 10*3/uL (1.4-4.0); Lymphocytes % 6.4 % (21.2-54.2); Mean Corpuscular HGB Conc 31.8 GM/DL (32-36); Mean Corpuscular Hemoglobin 24 PG (27-34); Mean Corpuscular Volume 74.9 FL (87-102); Mean Platelet Volume 11.6 FL (9.6-12.0); Monocytes # 1.1 10*3/uL (0.11-0.8); Monocytes % 14.6 % (1.7-12.7); Neutrophils # 5.5 10*3/uL (1.4-7.4); Neutrophils % 76.8 % (38.7-73.9); Platelet Count 163 T/CUMM (130-400); Red Blood Count 3.23 MC/CUMM (3.8-5.5); Red Cell Distribution Width 19.8 % (9.3-17.3); White Blood Count 7.2 T/CUMM (4-12)
[2017-08-29 06:36] LABS: % Iron Saturation 12.2 % (18-50); Calcium 8.1 MG/DL (8.5-10.1); Ferritin 361.3 ng/ml (26-388); Osmolality,Calculated 282.8 MOS/KG (273-304); Potassium 4.1 MMOL/L (3.5-5.1)
[2017-08-29 06:41] LABS: Folate 4.4 NG/ML (5.4-24.0); Vitamin B12 594 PG/ML (211-911)
[2017-08-29 07:52] LABS: Sedimentation Rate-Westergren 98 MM/HR (0-20)
[2017-08-29] MEDS: INSULIN REGULAR 100 UNIT/ML SUBCUT SCH ×2 (09:11→13:34)
[2017-08-29] MEDS ORDERED: SODIUM CHLORIDE 0.9% 1,000 ML IV PRN (09:19)
[2017-08-29 09:23] LABS: Hemoglobin A1 (Alkaline) 97.7 % (96.5-98.5)
[2017-08-29 09:24] LABS: Hemoglobin A2 (Alkaline) 2.3 % (1.5-3.5)
[2017-08-29] MEDS: CARVEDILOL 25 MG TABLET PO SCH (13:34)
[2017-08-29 14:24] VITALS: BP 153/76
[2017-08-29 14:27] LABS: Hematocrit 28.6 VOL% (42.0-52.0); Hemoglobin 8.9 GM/DL (14.0-18.0)
[2017-08-29] MEDS: ASPIRIN CHEW 81 MG TABLET PO SCH (14:40)
[2017-08-29] MEDS: TAMSULOSIN 0.4 MG CAPSULE PO SCH (14:40)
[2017-08-29] MEDS: amLODIPine 10 MG TABLET PO SCH (14:41)
[2017-08-29] MEDS: ISOSORBIDE MONONITRATE 30 MG TABLET PO SCH (14:41)
[2017-08-29] MEDS: FERROUS SULFATE 325 MG TABLET PO SCH (14:41)
[2017-08-29] MEDS: PANTOPRAZOLE 40 MG TABLET PO SCH (14:41)
== END 2017-08-29 16:25 | DRG 673 ==
LOC: EDUNIT# → EDBD → N.ED 18:57 → N.EDINP 21:47 → SUATTDRO 21:47 → N.5E 08-19 12:35
PROVIDERS: ADMIT Internal Medicine; ATTEND Internal Medicine Infectious Disease

== ENCOUNTER 2017-11-10 02:13 | Inpatient (IN) ==
[2017-11-10] MEDS ORDERED: ONDANSETRON 4 MG/2 ML VIAL IV STA (06:15)
[2017-11-10] MEDS ORDERED: DEXTROSE 50% 25 GM/50 ML SYRINGE IV ONE (06:31)
[2017-11-10 06:39] LABS: Basophils % 0.2 % (0.0-0.8); Eosinophils % 0.1 % (0.00-10.9); Hematocrit 18.5 VOL% (42.0-52.0); Immature Granulocytes Absolute 0.17 #; Lymphocytes # 0.6 10*3/uL (1.4-4.0); Lymphocytes % 3.6 % (21.2-54.2); Mean Corpuscular HGB Conc 33.5 GM/DL (32-36); Mean Corpuscular Hemoglobin 24 PG (27-34); Mean Corpuscular Volume 70.3 FL (87-102); Mean Platelet Volume 10.9 FL (9.6-12.0); Monocytes # 1.4 10*3/uL (0.11-0.8); Monocytes % 8.3 % (1.7-12.7); Neutrophils # 14.6 10*3/uL (1.4-7.4); Neutrophils % 86.8 % (38.7-73.9); Platelet Count 281 T/CUMM (130-400); Red Blood Count 2.63 MC/CUMM (3.8-5.5); Red Cell Distribution Width 15.8 % (9.3-17.3); White Blood Count 16.8 T/CUMM (4-12)
[2017-11-10 06:46] LABS: Hemoglobin 6.2 GM/DL (14.0-18.0)
[2017-11-10 06:47] LABS: Albumin 2.3 G/DL (3.4-5.0); Calcium 7.8 MG/DL (8.5-10.1); Osmolality,Calculated 267.5 MOS/KG (273-304); Potassium 3.2 MMOL/L (3.5-5.1); Total Protein 6.6 G/DL (6.4-8.3)
[2017-11-10 06:57] LABS: Hypochromasia 2+; Lymphocytes 4 % (20-55); Segmented Neutrophils 92 % (50-85); Total Cells Counted 100
[2017-11-10 06:58] LABS: Microcytosis 1+; Ovalocytes Slight; Platelet Estimate Normal; Target Cells Slight
[2017-11-10] MEDS ORDERED: DEXTROSE 50% 25 GM/50 ML VIAL IV STA (07:01)
[2017-11-10 07:42] LABS: % Iron Saturation 9.2 % (18-50); Ferritin 783.7 ng/ml (26-388)
[2017-11-10 07:53] LABS: Folate 9.1 NG/ML (5.4-24.0)
[2017-11-10] MEDS ORDERED: ACETAMINOPHEN 325 MG TABLET PO PRN (08:23)
[2017-11-10] MEDS ORDERED: GLUCAGON 1 MG VIAL IM PRN (08:23)
[2017-11-10] MEDS ORDERED: SODIUM CHLORIDE 0.9% 1,000 ML IV PRN (08:34)
[2017-11-10] MEDS: ONDANSETRON 4 MG/2 ML VIAL IV PRN (10:19)
[2017-11-10] MEDS: INSULIN LISPRO 100 UNIT/ML SUBCUT SCH ×3 (10:32→21:17)
[2017-11-10] MEDS: ASPIRIN CHEW 81 MG TABLET PO SCH ×2 (11:01→11:17)
[2017-11-10] MEDS: TAMSULOSIN 0.4 MG CAPSULE PO SCH ×2 (11:01→11:17)
[2017-11-10] MEDS: PANTOPRAZOLE 40 MG TABLET PO SCH ×2 (11:01→11:18)
[2017-11-10] MEDS: CARVEDILOL 25 MG TABLET PO SCH ×3 (11:01→20:10)
[2017-11-10] MEDS: FUROSEMIDE 80 MG TABLET PO SCH ×3 (11:01→20:10)
[2017-11-10] MEDS: amLODIPine 10 MG TABLET PO SCH ×2 (11:01→11:17)
[2017-11-10] MEDS: ISOSORBIDE MONONITRATE 30 MG TABLET PO SCH ×3 (11:01→20:10)
[2017-11-10] MEDS: FERROUS SULFATE 325 MG TABLET PO SCH ×2 (11:01→11:17)
[2017-11-10] MEDS: metroNIDAZOLE INJ 500 MG in PREMIX 1 EACH IV SCH ×2 (12:11→19:42)
[2017-11-10] MEDS ORDERED: VANCOMYCIN INJ 1,000 MG in SODIUM CHLORIDE 0.9% 250 ML IV ONE (14:00)
[2017-11-10 18:22] LABS: Hematocrit 23.4 VOL% (42.0-52.0); Hemoglobin 7.6 GM/DL (14.0-18.0)
[2017-11-10] MEDS ORDERED: SKIN HEALING OINT (AQUAPHOR) 50 GM TUBE TOP PRN (19:29)
[2017-11-10] MEDS ORDERED: CLOPIDOGREL 75 MG TABLET PO ONE (19:30)
[2017-11-10] MEDS: CITALOPRAM 20 MG TABLET PO SCH (20:10)
[2017-11-10] MEDS: ATORVASTATIN 10 MG TABLET PO SCH (20:10)
[2017-11-11] MEDS: metroNIDAZOLE INJ 500 MG in PREMIX 1 EACH IV SCH ×3 (02:02→18:19)
[2017-11-11 06:56] LABS: Basophils % 0.3 % (0.0-0.8); Eosinophils % 0.1 % (0.00-10.9); Hematocrit 21.8 VOL% (42.0-52.0); Hemoglobin 7.1 GM/DL (14.0-18.0); Immature Granulocytes % 1.2 %; Immature Granulocytes Absolute 0.18 #; Lymphocytes # 0.5 10*3/uL (1.4-4.0); Lymphocytes % 3.1 % (21.2-54.2); Mean Corpuscular HGB Conc 32.6 GM/DL (32-36); Mean Corpuscular Hemoglobin 23 PG (27-34); Mean Corpuscular Volume 71.7 FL (87-102); Mean Platelet Volume 10.3 FL (9.6-12.0); Monocytes # 1.1 10*3/uL (0.11-0.8); Monocytes % 7.5 % (1.7-12.7); Neutrophils # 13.3 10*3/uL (1.4-7.4); Neutrophils % 87.8 % (38.7-73.9); Platelet Count 272 T/CUMM (130-400); Red Blood Count 3.04 MC/CUMM (3.8-5.5); Red Cell Distribution Width 17.3 % (9.3-17.3); White Blood Count 15.2 T/CUMM (4-12)
[2017-11-11 07:14] LABS: Calcium 7.9 MG/DL (8.5-10.1); Osmolality,Calculated 266.4 MOS/KG (273-304); Potassium 3.1 MMOL/L (3.5-5.1)
[2017-11-11 07:18] LABS: Lymphocytes 4 % (20-55); Segmented Neutrophils 83 % (50-85); Total Cells Counted 100
[2017-11-11 07:19] LABS: Hypochromasia 2+; Microcytosis 1+
[2017-11-11 07:20] LABS: Polychromasia Slight; Target Cells Few
[2017-11-11 07:21] LABS: Platelet Estimate Normal
[2017-11-11] MEDS: INSULIN LISPRO 100 UNIT/ML SUBCUT SCH ×4 (07:58→21:45)
[2017-11-11] MEDS ORDERED: CLOPIDOGREL 75 MG TABLET PO SCH (09:00)
[2017-11-11] MEDS ORDERED: POTASSIUM CHLORIDE 20 MEQ/15 ML UDCUP PO ONE (09:07)
[2017-11-11] MEDS: FERROUS SULFATE 325 MG TABLET PO SCH ×2 (10:06→13:21)
[2017-11-11] MEDS: CARVEDILOL 25 MG TABLET PO SCH ×3 (10:06→21:44)
[2017-11-11] MEDS: ASPIRIN CHEW 81 MG TABLET PO SCH ×2 (10:06→13:21)
[2017-11-11] MEDS: FUROSEMIDE 80 MG TABLET PO SCH ×3 (10:07→21:45)
[2017-11-11] MEDS: amLODIPine 10 MG TABLET PO SCH ×2 (10:07→13:21)
[2017-11-11] MEDS: sitaGLIPtin 25 MG TABLET PO SCH (10:07)
[2017-11-11] MEDS: ISOSORBIDE MONONITRATE 30 MG TABLET PO SCH ×3 (10:07→21:44)
[2017-11-11] MEDS: TAMSULOSIN 0.4 MG CAPSULE PO SCH ×2 (10:07→13:21)
[2017-11-11] MEDS: PANTOPRAZOLE 40 MG TABLET PO SCH ×2 (10:07→13:21)
[2017-11-11] MEDS ORDERED: PROPOFOL 200 MG/20 ML VIAL IV ONE (11:16)
[2017-11-11] MEDS ORDERED: LIDOCAINE 1% 5 ML VIAL ONE (11:16)
[2017-11-11] MEDS: BACLOFEN 10 MG TABLET PO SCH ×2 (15:29→21:44)
[2017-11-11] MEDS ORDERED: VANCOMYCIN INJ 750 MG in SODIUM CHLORIDE 0.9% 250 ML IV PRN (17:34)
[2017-11-11] MEDS ORDERED: VANCOMYCIN INJ 1,000 MG in SODIUM CHLORIDE 0.9% 250 ML IV ONE (18:30)
[2017-11-11] MEDS: ATORVASTATIN 10 MG TABLET PO SCH (21:44)
[2017-11-11] MEDS: CITALOPRAM 20 MG TABLET PO SCH (21:44)
[2017-11-12] MEDS ORDERED: ALBUTEROL/IPRATROPIUM 3 ML NEB RESP TX PRN (01:28)
[2017-11-12] MEDS: metroNIDAZOLE INJ 500 MG in PREMIX 1 EACH IV SCH ×3 (02:15→17:35)
[2017-11-12] MEDS ORDERED: FUROSEMIDE 40 MG/4 ML VIAL IV ONE (03:30)
[2017-11-12 07:40] LABS: Basophils # 0.1 10*3/uL (0.0-0.2); Basophils % 0.3 % (0.0-0.8); Eosinophils % 0.3 % (0.00-10.9); Hematocrit 21.6 VOL% (42.0-52.0); Hemoglobin 7.2 GM/DL (14.0-18.0); Immature Granulocytes % 1.6 %; Immature Granulocytes Absolute 0.24 #; Lymphocytes # 0.5 10*3/uL (1.4-4.0); Lymphocytes % 3.4 % (21.2-54.2); Mean Corpuscular HGB Conc 33.3 GM/DL (32-36); Mean Corpuscular Hemoglobin 24 PG (27-34); Mean Platelet Volume 10.4 FL (9.6-12.0); Monocytes # 1.1 10*3/uL (0.11-0.8); Monocytes % 7.4 % (1.7-12.7); Neutrophils # 12.8 10*3/uL (1.4-7.4); Platelet Count 281 T/CUMM (130-400); Red Cell Distribution Width 17.5 % (9.3-17.3); White Blood Count 14.7 T/CUMM (4-12)
[2017-11-12] MEDS ORDERED: SODIUM CHLORIDE 0.9% 1,000 ML IV PRN (07:52)
[2017-11-12] MEDS: INSULIN LISPRO 100 UNIT/ML SUBCUT SCH ×4 (07:53→20:52)
[2017-11-12 08:07] LABS: Calcium 7.9 MG/DL (8.5-10.1); Osmolality,Calculated 265.5 MOS/KG (273-304); Potassium 3.5 MMOL/L (3.5-5.1)
[2017-11-12 08:50] LABS: Total Cells Counted 100
[2017-11-12 08:53] LABS: Microcytosis 1+; Ovalocytes Few; Platelet Estimate Normal; Schistocytes Slight; Target Cells Few
[2017-11-12 08:54] LABS: Sickle Cells 1+
[2017-11-12] MEDS: CARVEDILOL 25 MG TABLET PO SCH ×2 (09:09→20:52)
[2017-11-12] MEDS: amLODIPine 10 MG TABLET PO SCH (09:09)
[2017-11-12] MEDS: BACLOFEN 10 MG TABLET PO SCH ×3 (09:09→20:52)
[2017-11-12] MEDS: ASPIRIN CHEW 81 MG TABLET PO SCH (09:09)
[2017-11-12] MEDS: TAMSULOSIN 0.4 MG CAPSULE PO SCH (09:09)
[2017-11-12] MEDS: PANTOPRAZOLE 40 MG TABLET PO SCH (09:09)
[2017-11-12] MEDS: FUROSEMIDE 80 MG TABLET PO SCH ×2 (09:09→20:52)
[2017-11-12] MEDS: ISOSORBIDE MONONITRATE 30 MG TABLET PO SCH ×2 (09:09→20:52)
[2017-11-12] MEDS: FERROUS SULFATE 325 MG TABLET PO SCH (09:09)
[2017-11-12] MEDS: sitaGLIPtin 25 MG TABLET PO SCH (09:10)
[2017-11-12 09:50] LABS: Lymphocytes 3 % (20-55); Segmented Neutrophils 91 % (50-85)
[2017-11-12 09:51] LABS: Hypochromasia 3+
[2017-11-12 10:14] LABS: INR 1.3; PT Patient Result 13.6 SECS
[2017-11-12] MEDS: SILVER SULFADIAZINE 1% CREAM 25 GM TUBE TOP SCH (11:43)
[2017-11-12] MEDS ORDERED: HEPARIN 10,000 UNIT/10 ML VIAL IV PRN (16:27)
[2017-11-12] MEDS: CITALOPRAM 20 MG TABLET PO SCH (20:52)
[2017-11-12] MEDS: ATORVASTATIN 10 MG TABLET PO SCH (20:52)
[2017-11-12] MEDS ORDERED: VANCOMYCIN INJ 750 MG in SODIUM CHLORIDE 0.9% 250 ML IV ONE (21:00)
[2017-11-13] MEDS: ONDANSETRON 4 MG/2 ML VIAL IV PRN (02:19)
[2017-11-13] MEDS: metroNIDAZOLE INJ 500 MG in PREMIX 1 EACH IV SCH ×3 (02:26→17:23)
[2017-11-13 06:38] LABS: Basophils % 0.2 % (0.0-0.8); Eosinophils % 0.2 % (0.00-10.9); Hematocrit 25.4 VOL% (42.0-52.0); Hemoglobin 8.7 GM/DL (14.0-18.0); Lymphocytes # 0.5 10*3/uL (1.4-4.0); Lymphocytes % 3.4 % (21.2-54.2); Mean Corpuscular HGB Conc 34.3 GM/DL (32-36); Mean Corpuscular Hemoglobin 25 PG (27-34); Mean Corpuscular Volume 73.2 FL (87-102); Mean Platelet Volume 10.6 FL (9.6-12.0); Monocytes # 1.2 10*3/uL (0.11-0.8); Monocytes % 7.5 % (1.7-12.7); Neutrophils # 13.3 10*3/uL (1.4-7.4); Neutrophils % 86.7 % (38.7-73.9); Platelet Count 282 T/CUMM (130-400); Red Blood Count 3.47 MC/CUMM (3.8-5.5); Red Cell Distribution Width 19.9 % (9.3-17.3); White Blood Count 15.4 T/CUMM (4-12)
[2017-11-13 07:00] LABS: Calcium 8.1 MG/DL (8.5-10.1); Potassium 3.1 MMOL/L (3.5-5.1)
[2017-11-13 07:02] LABS: Band Neutrophils 4 % (0-10); Elliptocytes 1+; Hypochromasia 2+; Lymphocytes 2 % (20-55); Macrocytosis 1+; Segmented Neutrophils 87 % (50-85); Target Cells Slight; Total Cells Counted 100
[2017-11-13 07:03] LABS: Acanthocytes Few; Platelet Estimate Adequate
[2017-11-13] MEDS: INSULIN LISPRO 100 UNIT/ML SUBCUT SCH ×4 (08:24→20:14)
[2017-11-13] MEDS: FUROSEMIDE 80 MG TABLET PO SCH ×2 (09:22→20:14)
[2017-11-13] MEDS: ASPIRIN CHEW 81 MG TABLET PO SCH (09:22)
[2017-11-13] MEDS: amLODIPine 10 MG TABLET PO SCH (09:22)
[2017-11-13] MEDS: FERROUS SULFATE 325 MG TABLET PO SCH (09:22)
[2017-11-13] MEDS: CARVEDILOL 25 MG TABLET PO SCH ×2 (09:22→20:14)
[2017-11-13] MEDS: ISOSORBIDE MONONITRATE 30 MG TABLET PO SCH ×2 (09:22→20:14)
[2017-11-13] MEDS: PANTOPRAZOLE 40 MG TABLET PO SCH (09:23)
[2017-11-13] MEDS: sitaGLIPtin 25 MG TABLET PO SCH (09:23)
[2017-11-13] MEDS: BACLOFEN 10 MG TABLET PO SCH ×3 (09:23→20:14)
[2017-11-13] MEDS: TAMSULOSIN 0.4 MG CAPSULE PO SCH (09:23)
[2017-11-13] MEDS ORDERED: DIAZEPAM 5 MG TABLET PO ONE (09:36)
[2017-11-13] MEDS ORDERED: HEPARIN/NACL 0.9% 2 UNITS/ML 2,000 ML IV ONE (10:10)
[2017-11-13] MEDS ORDERED: fentaNYL 100 MCG/2 ML VIAL ONE (10:46)
[2017-11-13] MEDS ORDERED: MIDAZOLAM 2 MG/2 ML VIAL ONE (10:46)
[2017-11-13] MEDS ORDERED: fentaNYL 100 MCG/2 ML VIAL IV ONE (11:07)
[2017-11-13] MEDS ORDERED: MIDAZOLAM 2 MG/2 ML VIAL IV ONE (11:07)
[2017-11-13] MEDS: SILVER SULFADIAZINE 1% CREAM 25 GM TUBE TOP SCH (14:05)
[2017-11-13] MEDS ORDERED: POTASSIUM CHLORIDE 20 MEQ TABLET PO ONE (16:36)
[2017-11-13] MEDS ORDERED: MAGNESIUM SULF RIDER 2 GM in PREMIX 1 EACH IV PRN (17:14)
[2017-11-13] MEDS ORDERED: POTASSIUM CHLORIDE RIDER 10 MEQ in PREMIX 1 EACH IV PRN (17:14)
[2017-11-13] MEDS: CITALOPRAM 20 MG TABLET PO SCH (20:14)
[2017-11-13] MEDS: ROSUVASTATIN 20 MG TABLET PO SCH (20:16)
[2017-11-14] MEDS: metroNIDAZOLE INJ 500 MG in PREMIX 1 EACH IV SCH ×3 (01:19→17:42)
[2017-11-14] MEDS ORDERED: BUPIVACAINE 0.5% 50 ML VIAL ONE (06:23)
[2017-11-14] MEDS ORDERED: DIAZEPAM 5 MG TABLET PO ONE (06:30)
[2017-11-14] MEDS ORDERED: diphenhydrAMINE CAP 25 MG CAPSULE PO ONE (06:30)
[2017-11-14 07:01] LABS: Basophils % 0.2 % (0.0-0.8); Eosinophils # 0.1 10*3/uL (0.0-0.87); Eosinophils % 0.4 % (0.00-10.9); Hemoglobin 8.7 GM/DL (14.0-18.0); Immature Granulocytes Absolute 0.16 #; Lymphocytes # 0.5 10*3/uL (1.4-4.0); Lymphocytes % 3.2 % (21.2-54.2); Mean Corpuscular HGB Conc 33.5 GM/DL (32-36); Mean Corpuscular Hemoglobin 25 PG (27-34); Mean Corpuscular Volume 73.9 FL (87-102); Mean Platelet Volume 10.1 FL (9.6-12.0); Monocytes # 1.3 10*3/uL (0.11-0.8); Monocytes % 7.6 % (1.7-12.7); Neutrophils # 14.4 10*3/uL (1.4-7.4); Neutrophils % 87.6 % (38.7-73.9); Platelet Count 278 T/CUMM (130-400); Red Blood Count 3.52 MC/CUMM (3.8-5.5); Red Cell Distribution Width 20.3 % (9.3-17.3); White Blood Count 16.5 T/CUMM (4-12)
[2017-11-14 07:26] LABS: Band Neutrophils 1 % (0-10); Calcium 7.9 MG/DL (8.5-10.1); Lymphocytes 4 % (20-55); Osmolality,Calculated 269.4 MOS/KG (273-304); Polychromasia Slight; Potassium 3.5 MMOL/L (3.5-5.1); Segmented Neutrophils 85 % (50-85); Total Cells Counted 100
[2017-11-14 07:27] LABS: Hypochromasia 2+; Microcytosis 1+; Target Cells Slight
[2017-11-14 07:28] LABS: Platelet Estimate Normal
[2017-11-14 07:31] LABS: Alanine Aminotransferase < 9 U/L (16-61); Albumin 2.3 G/DL (3.4-5.0); Alkaline Phosphatase 138 U/L (45-117); Aspartate Amino Transferase 27 U/L (0-37); Blood Urea Nitrogen 24 MG/DL (7-18); Calcium 7.7 MG/DL (8.5-10.1); Glucose 94 MG/DL (74-106); Osmolality,Calculated 273.1 MOS/KG (273-304); Potassium 3.6 MMOL/L (3.5-5.1); Sodium 135 MMOL/L (136-145); Total Protein 6.7 G/DL (6.4-8.3)
[2017-11-14] MEDS: INSULIN LISPRO 100 UNIT/ML SUBCUT SCH ×4 (08:24→22:45)
[2017-11-14] MEDS: ASPIRIN CHEW 81 MG TABLET PO SCH (09:07)
[2017-11-14] MEDS: PANTOPRAZOLE 40 MG TABLET PO SCH (09:08)
[2017-11-14] MEDS: ISOSORBIDE MONONITRATE 30 MG TABLET PO SCH ×2 (09:08→22:45)
[2017-11-14] MEDS: TAMSULOSIN 0.4 MG CAPSULE PO SCH (09:08)
[2017-11-14] MEDS: BACLOFEN 10 MG TABLET PO SCH ×3 (09:08→22:46)
[2017-11-14] MEDS: amLODIPine 10 MG TABLET PO SCH (09:08)
[2017-11-14] MEDS: FUROSEMIDE 80 MG TABLET PO SCH ×2 (09:08→22:48)
[2017-11-14] MEDS: FERROUS SULFATE 325 MG TABLET PO SCH (09:08)
[2017-11-14] MEDS: CARVEDILOL 25 MG TABLET PO SCH ×2 (09:08→22:45)
[2017-11-14] MEDS: sitaGLIPtin 25 MG TABLET PO SCH (09:08)
[2017-11-14] MEDS ORDERED: VANCOMYCIN INJ 750 MG in SODIUM CHLORIDE 0.9% 250 ML IV PRN (09:22)
[2017-11-14] MEDS ORDERED: SEVOFLURANE 1 UNIT/15 MINUTE INH ONE (09:34)
[2017-11-14] MEDS ORDERED: ETOMIDATE 40 MG/20 ML VIAL IV ONE (09:34)
[2017-11-14] MEDS ORDERED: fentaNYL 100 MCG/2 ML VIAL ONE (09:34)
[2017-11-14] MEDS ORDERED: SUCCINYLCHOLINE 200 MG/10 ML VIAL ONE (09:35)
[2017-11-14] MEDS ORDERED: ROCURONIUM 100 MG/10 ML VIAL IV ONE (09:35)
[2017-11-14] MEDS ORDERED: GLYCOPYRROLATE 0.4 MG/2 ML VIAL ONE (09:35)
[2017-11-14] MEDS ORDERED: NEOSTIGMINE 10 MG/10 ML VIAL ONE (09:35)
[2017-11-14] MEDS: SILVER SULFADIAZINE 1% CREAM 25 GM TUBE TOP SCH (10:04)
[2017-11-14] MEDS: DEXTROSE 50% 25 GM/50 ML VIAL IV PRN ×4 (16:33→22:53)
[2017-11-14] MEDS ORDERED: VANCOMYCIN INJ 750 MG in SODIUM CHLORIDE 0.9% 250 ML IV ONE (21:00)
[2017-11-14] MEDS: ROSUVASTATIN 20 MG TABLET PO SCH (22:45)
[2017-11-14] MEDS: CITALOPRAM 20 MG TABLET PO SCH (22:45)
[2017-11-15] MEDS: DEXTROSE 50% 25 GM/50 ML VIAL IV PRN ×7 (00:15→20:18)
[2017-11-15 00:39] LABS: ABG Base Excess 1.1 MMOL/L (-2.5-2.5); ABG HCO3 25.2 MMOL/L (20-26); ABG PCO2 42.3 MM HG (35-48); ABG PH 7.397 (7.35-7.45); ABG PO2 50.8 MM HG (80-95); ABG TCO2 24.2 MMOL/L (23-27); Allen Test Positive
[2017-11-15 01:26] LABS: Basophils # 0.1 10*3/uL (0.0-0.2); Basophils % 0.4 % (0.0-0.8); Eosinophils # 0.1 10*3/uL (0.0-0.87); Eosinophils % 0.6 % (0.00-10.9); Hematocrit 25.7 VOL% (42.0-52.0); Hemoglobin 8.3 GM/DL (14.0-18.0); Immature Granulocytes % 0.2 %; Immature Granulocytes Absolute 0.03 #; Lymphocytes # 0.4 10*3/uL (1.4-4.0); Lymphocytes % 3.2 % (21.2-54.2); Mean Corpuscular HGB Conc 32.3 GM/DL (32-36); Mean Corpuscular Hemoglobin 25 PG (27-34); Mean Corpuscular Volume 76.5 FL (87-102); Mean Platelet Volume 10.8 FL (9.6-12.0); Monocytes # 0.6 10*3/uL (0.11-0.8); Neutrophils # 11.2 10*3/uL (1.4-7.4); Neutrophils % 90.6 % (38.7-73.9); Platelet Count 255 T/CUMM (130-400); Red Blood Count 3.36 MC/CUMM (3.8-5.5); Red Cell Distribution Width 20.6 % (9.3-17.3); White Blood Count 12.3 T/CUMM (4-12)
[2017-11-15 01:45] LABS: INR 1.7; PT Patient Result 17.6 SECS; Partial Thromboplastin Time 35.4 SECS (0-40)
[2017-11-15 01:57] LABS: Alanine Aminotransferase < 6 U/L (16-61); Albumin 1.9 G/DL (3.4-5.0); Alkaline Phosphatase 109 U/L (45-117); Aspartate Amino Transferase 25 U/L (0-37); Blood Urea Nitrogen 16 MG/DL (7-18); Calcium 7.4 MG/DL (8.5-10.1); Glucose 97 MG/DL (74-106); Potassium 3.4 MMOL/L (3.5-5.1); Sodium 136 MMOL/L (136-145); Total Protein 5.6 G/DL (6.4-8.3)
[2017-11-15 02:05] LABS: Band Neutrophils 12 % (0-10); Lymphocytes 8 % (20-55); Microcytosis 2+; Platelet Estimate Normal; Segmented Neutrophils 79 % (50-85); Total Cells Counted 100
[2017-11-15] MEDS: metroNIDAZOLE INJ 500 MG in PREMIX 1 EACH IV SCH ×3 (02:22→18:05)
[2017-11-15 03:00] LABS: Basophils # 0.1 10*3/uL (0.0-0.2); Basophils % 0.4 % (0.0-0.8); Eosinophils # 0.1 10*3/uL (0.0-0.87); Eosinophils % 0.8 % (0.00-10.9); Hematocrit 25.7 VOL% (42.0-52.0); Hemoglobin 8.3 GM/DL (14.0-18.0); Immature Granulocytes % 0.3 %; Immature Granulocytes Absolute 0.05 #; Lymphocytes # 0.4 10*3/uL (1.4-4.0); Lymphocytes % 2.3 % (21.2-54.2); Mean Corpuscular HGB Conc 32.3 GM/DL (32-36); Mean Corpuscular Hemoglobin 25 PG (27-34); Mean Corpuscular Volume 76.5 FL (87-102); Monocytes # 0.7 10*3/uL (0.11-0.8); Monocytes % 4.8 % (1.7-12.7); Neutrophils # 14.1 10*3/uL (1.4-7.4); Neutrophils % 91.4 % (38.7-73.9); Platelet Count 243 T/CUMM (130-400); Red Blood Count 3.36 MC/CUMM (3.8-5.5); Red Cell Distribution Width 20.5 % (9.3-17.3); White Blood Count 15.4 T/CUMM (4-12)
[2017-11-15 03:19] LABS: Lactic Acid 3.1 MMOL/L (0.4-2.0)
[2017-11-15 03:26] LABS: Calcium 7.3 MG/DL (8.5-10.1); Osmolality,Calculated 270.1 MOS/KG (273-304); Potassium 3.5 MMOL/L (3.5-5.1)
[2017-11-15 03:29] LABS: Band Neutrophils 13 % (0-10); Lymphocytes 9 % (20-55); Microcytosis 1+; Platelet Estimate Normal; Segmented Neutrophils 73 % (50-85); Total Cells Counted 100
[2017-11-15] MEDS: INSULIN LISPRO 100 UNIT/ML SUBCUT SCH ×4 (07:55→21:48)
[2017-11-15] MEDS: BACLOFEN 10 MG TABLET PO SCH ×3 (08:09→21:55)
[2017-11-15] MEDS: ISOSORBIDE MONONITRATE 30 MG TABLET PO SCH ×2 (08:10→21:56)
[2017-11-15] MEDS: PANTOPRAZOLE 40 MG TABLET PO SCH (08:10)
[2017-11-15] MEDS: amLODIPine 10 MG TABLET PO SCH (08:10)
[2017-11-15] MEDS: SILVER SULFADIAZINE 1% CREAM 25 GM TUBE TOP SCH (08:10)
[2017-11-15] MEDS: FUROSEMIDE 80 MG TABLET PO SCH ×2 (08:10→21:56)
[2017-11-15] MEDS: TAMSULOSIN 0.4 MG CAPSULE PO SCH (08:10)
[2017-11-15] MEDS: ASPIRIN CHEW 81 MG TABLET PO SCH (08:10)
[2017-11-15] MEDS: sitaGLIPtin 25 MG TABLET PO SCH (08:10)
[2017-11-15] MEDS: FERROUS SULFATE 325 MG TABLET PO SCH (08:10)
[2017-11-15] MEDS: CARVEDILOL 25 MG TABLET PO SCH ×2 (08:10→21:56)
[2017-11-15] MEDS: CITALOPRAM 20 MG TABLET PO SCH (21:55)
[2017-11-15] MEDS: ROSUVASTATIN 20 MG TABLET PO SCH (21:55)
[2017-11-16] MEDS: DEXTROSE 50% 25 GM/50 ML VIAL IV PRN ×2 (00:07→06:24)
[2017-11-16] MEDS: metroNIDAZOLE INJ 500 MG in PREMIX 1 EACH IV SCH ×3 (02:05→17:24)
[2017-11-16 06:25] LABS: Basophils # 0.1 10*3/uL (0.0-0.2); Basophils % 0.4 % (0.0-0.8); Eosinophils # 0.2 10*3/uL (0.0-0.87); Eosinophils % 0.9 % (0.00-10.9); Hematocrit 25.2 VOL% (42.0-52.0); Hemoglobin 8.2 GM/DL (14.0-18.0); Immature Granulocytes % 1.1 %; Lymphocytes # 0.3 10*3/uL (1.4-4.0); Lymphocytes % 1.8 % (21.2-54.2); Mean Corpuscular HGB Conc 32.5 GM/DL (32-36); Mean Corpuscular Hemoglobin 24 PG (27-34); Monocytes # 0.8 10*3/uL (0.11-0.8); Neutrophils # 17.2 10*3/uL (1.4-7.4); Neutrophils % 91.8 % (38.7-73.9); Platelet Count 248 T/CUMM (130-400); Red Blood Count 3.36 MC/CUMM (3.8-5.5); Red Cell Distribution Width 21.3 % (9.3-17.3); White Blood Count 18.7 T/CUMM (4-12)
[2017-11-16 06:52] LABS: Calcium 7.6 MG/DL (8.5-10.1); Osmolality,Calculated 272.1 MOS/KG (273-304); Potassium 3.6 MMOL/L (3.5-5.1)
[2017-11-16 07:08] LABS: ABG Base Excess 2.8 MMOL/L (-2.5-2.5); ABG HCO3 27.1 MMOL/L (20-26); ABG Oxygen Saturation 90.3 % (95-100); ABG PCO2 40.5 MM HG (35-48); ABG PH 7.443 (7.35-7.45); ABG PO2 61.7 MM HG (80-95); ABG TCO2 28.3 MMOL/L (23-27)
[2017-11-16 07:27] LABS: Band Neutrophils 8 % (0-10); Eosinophils 1 % (0-10); Hypochromasia 1+; Lymphocytes 3 % (20-55); Platelet Estimate Adequate; Segmented Neutrophils 85 % (50-85); Total Cells Counted 100
[2017-11-16 07:28] LABS: Giant Platelets Few; Microcytosis 1+
[2017-11-16] MEDS: INSULIN LISPRO 100 UNIT/ML SUBCUT SCH ×4 (08:25→20:30)
[2017-11-16] MEDS: HYDROCORTISONE 100 MG VIAL IV SCH ×2 (08:41→17:00)
[2017-11-16] MEDS: CARVEDILOL 25 MG TABLET PO SCH ×2 (08:42→22:05)
[2017-11-16] MEDS: FERROUS SULFATE 325 MG TABLET PO SCH (08:42)
[2017-11-16] MEDS: FUROSEMIDE 80 MG TABLET PO SCH ×2 (08:42→22:13)
[2017-11-16] MEDS: BACLOFEN 10 MG TABLET PO SCH ×3 (08:42→22:04)
[2017-11-16] MEDS: PANTOPRAZOLE 40 MG TABLET PO SCH (08:42)
[2017-11-16] MEDS: amLODIPine 10 MG TABLET PO SCH (08:42)
[2017-11-16] MEDS: ASPIRIN CHEW 81 MG TABLET PO SCH (08:43)
[2017-11-16] MEDS: SILVER SULFADIAZINE 1% CREAM 25 GM TUBE TOP SCH (08:43)
[2017-11-16] MEDS: ISOSORBIDE MONONITRATE 30 MG TABLET PO SCH ×2 (08:43→22:05)
[2017-11-16] MEDS: TAMSULOSIN 0.4 MG CAPSULE PO SCH (08:43)
[2017-11-16] MEDS ORDERED: AMPICILLIN/SULBACTAM 1,500 MG in SODIUM CHLORIDE 0.9% 100 ML IV SCH (12:00)
[2017-11-16] MEDS: AMPICILLIN/SULBACTAM 1,500 MG in SODIUM CHLORIDE 0.9% 100 ML IV SCH ×2 (14:23→23:55)
[2017-11-16] MEDS: ROSUVASTATIN 20 MG TABLET PO SCH (22:05)
[2017-11-16] MEDS: CITALOPRAM 20 MG TABLET PO SCH (22:05)
[2017-11-16] MEDS: METOCLOPRAMIDE 10 MG/2 ML VIAL IV SCH (22:05)
[2017-11-17] MEDS: HYDROCORTISONE 100 MG VIAL IV SCH ×3 (00:53→18:11)
[2017-11-17] MEDS: metroNIDAZOLE INJ 500 MG in PREMIX 1 EACH IV SCH ×3 (01:55→18:11)
[2017-11-17] MEDS: METOCLOPRAMIDE 10 MG/2 ML VIAL IV SCH ×4 (05:21→18:11)
[2017-11-17 05:50] LABS: Basophils % 0.2 % (0.0-0.8); Hematocrit 25.1 VOL% (42.0-52.0); Hemoglobin 8.4 GM/DL (14.0-18.0); Immature Granulocytes % 1.2 %; Immature Granulocytes Absolute 0.22 #; Lymphocytes # 0.4 10*3/uL (1.4-4.0); Mean Corpuscular HGB Conc 33.5 GM/DL (32-36); Mean Corpuscular Hemoglobin 24 PG (27-34); Mean Platelet Volume 10.8 FL (9.6-12.0); Monocytes # 0.5 10*3/uL (0.11-0.8); Monocytes % 2.5 % (1.7-12.7); Neutrophils # 17.1 10*3/uL (1.4-7.4); Neutrophils % 94.1 % (38.7-73.9); Platelet Count 223 T/CUMM (130-400); Red Blood Count 3.44 MC/CUMM (3.8-5.5); Red Cell Distribution Width 21.6 % (9.3-17.3); White Blood Count 18.2 T/CUMM (4-12)
[2017-11-17 06:17] LABS: Band Neutrophils 4 % (0-10); Burr Cells Few; Lymphocytes 3 % (20-55); Microcytosis 2+; Platelet Estimate Normal; Potassium 4.2 MMOL/L (3.5-5.1); Segmented Neutrophils 91 % (50-85); Total Cells Counted 100
[2017-11-17 06:18] LABS: Target Cells Few
[2017-11-17] MEDS: INSULIN LISPRO 100 UNIT/ML SUBCUT SCH ×4 (08:22→20:15)
[2017-11-17] MEDS: CARVEDILOL 25 MG TABLET PO SCH ×2 (08:43→21:29)
[2017-11-17] MEDS: FERROUS SULFATE 325 MG TABLET PO SCH (08:43)
[2017-11-17] MEDS: ISOSORBIDE MONONITRATE 30 MG TABLET PO SCH ×2 (08:43→21:29)
[2017-11-17] MEDS: BACLOFEN 10 MG TABLET PO SCH ×3 (08:43→21:29)
[2017-11-17] MEDS: PANTOPRAZOLE 40 MG TABLET PO SCH (08:43)
[2017-11-17] MEDS: amLODIPine 10 MG TABLET PO SCH (08:43)
[2017-11-17] MEDS: ASPIRIN CHEW 81 MG TABLET PO SCH (08:43)
[2017-11-17] MEDS: TAMSULOSIN 0.4 MG CAPSULE PO SCH (08:43)
[2017-11-17] MEDS: AMPICILLIN/SULBACTAM 1,500 MG in SODIUM CHLORIDE 0.9% 100 ML IV SCH (12:24)
[2017-11-17] MEDS: SILVER SULFADIAZINE 1% CREAM 25 GM TUBE TOP SCH (16:30)
[2017-11-17] MEDS ORDERED: VANCOMYCIN INJ 750 MG in SODIUM CHLORIDE 0.9% 250 ML IV ONE (17:00)
[2017-11-17] MEDS: ROSUVASTATIN 20 MG TABLET PO SCH (21:29)
[2017-11-17] MEDS: CITALOPRAM 20 MG TABLET PO SCH (21:29)
[2017-11-18] MEDS: METOCLOPRAMIDE 10 MG/2 ML VIAL IV SCH ×4 (00:12→18:07)
[2017-11-18] MEDS: AMPICILLIN/SULBACTAM 1,500 MG in SODIUM CHLORIDE 0.9% 100 ML IV SCH ×2 (00:16→13:30)
[2017-11-18] MEDS: HYDROCORTISONE 100 MG VIAL IV SCH ×3 (01:33→18:07)
[2017-11-18] MEDS: metroNIDAZOLE INJ 500 MG in PREMIX 1 EACH IV SCH (01:36)
[2017-11-18 05:03] LABS: Basophils % 0.1 % (0.0-0.8); Hematocrit 25.7 VOL% (42.0-52.0); Hemoglobin 8.8 GM/DL (14.0-18.0); Immature Granulocytes % 0.9 %; Immature Granulocytes Absolute 0.15 #; Lymphocytes # 0.4 10*3/uL (1.4-4.0); Lymphocytes % 2.3 % (21.2-54.2); Mean Corpuscular HGB Conc 34.2 GM/DL (32-36); Mean Corpuscular Hemoglobin 25 PG (27-34); Mean Corpuscular Volume 72.2 FL (87-102); Mean Platelet Volume 11.2 FL (9.6-12.0); Monocytes # 0.5 10*3/uL (0.11-0.8); Monocytes % 2.7 % (1.7-12.7); Neutrophils # 16.1 10*3/uL (1.4-7.4); Platelet Count 234 T/CUMM (130-400); Red Blood Count 3.56 MC/CUMM (3.8-5.5); Red Cell Distribution Width 21.6 % (9.3-17.3); White Blood Count 17.1 T/CUMM (4-12)
[2017-11-18 05:33] LABS: Hypochromasia 2+; Lymphocytes 1 % (20-55); Segmented Neutrophils 96 % (50-85); Target Cells Few; Total Cells Counted 100
[2017-11-18 05:34] LABS: Acanthocytes Few; Microcytosis 1+; Ovalocytes Slight
[2017-11-18 05:35] LABS: Platelet Estimate Normal
[2017-11-18 05:36] LABS: Potassium 3.6 MMOL/L (3.5-5.1)
[2017-11-18] MEDS: INSULIN LISPRO 100 UNIT/ML SUBCUT SCH ×4 (10:43→21:20)
[2017-11-18] MEDS: BACLOFEN 10 MG TABLET PO SCH ×2 (10:45→21:19)
[2017-11-18] MEDS: ASPIRIN CHEW 81 MG TABLET PO SCH (10:45)
[2017-11-18] MEDS: CARVEDILOL 25 MG TABLET PO SCH ×2 (10:46→21:20)
[2017-11-18] MEDS: ISOSORBIDE MONONITRATE 30 MG TABLET PO SCH ×3 (10:46→21:21)
[2017-11-18] MEDS: FERROUS SULFATE 325 MG TABLET PO SCH (10:46)
[2017-11-18] MEDS: amLODIPine 10 MG TABLET PO SCH (10:46)
[2017-11-18] MEDS: TAMSULOSIN 0.4 MG CAPSULE PO SCH (10:47)
[2017-11-18] MEDS: COLLAGENASE OINT 30 GM TUBE TOP SCH (10:47)
[2017-11-18] MEDS: SKIN HEALING OINT (AQUAPHOR) 50 GM TUBE TOP SCH (10:47)
[2017-11-18] MEDS: SILVER SULFADIAZINE 1% CREAM 25 GM TUBE TOP SCH (10:47)
[2017-11-18] MEDS: PANTOPRAZOLE 40 MG TABLET PO SCH (10:48)
[2017-11-18] MEDS ORDERED: DIAZEPAM 5 MG TABLET PO ONE (11:08)
[2017-11-18] MEDS ORDERED: diphenhydrAMINE CAP 25 MG CAPSULE PO ONE (11:08)
[2017-11-18] MEDS ORDERED: MAGNESIUM SULF RIDER 2 GM in PREMIX 1 EACH IV PRN (11:08)
[2017-11-18] MEDS ORDERED: POTASSIUM CHLORIDE RIDER 10 MEQ in PREMIX 1 EACH IV PRN (11:08)
[2017-11-18] MEDS ORDERED: EPOETIN ALFA 10,000 UNIT/1 ML VIAL IV PRN (14:52)
[2017-11-18] MEDS: SULFAMETHOX/TRIMETHOPRIM 800-160 MG TABLET PO SCH ×2 (17:35→21:20)
[2017-11-18] MEDS: CITALOPRAM 20 MG TABLET PO SCH (21:19)
[2017-11-18] MEDS: ROSUVASTATIN 20 MG TABLET PO SCH (21:20)
[2017-11-19] MEDS: HYDROCORTISONE 100 MG VIAL IV SCH ×3 (01:31→17:54)
[2017-11-19] MEDS: METOCLOPRAMIDE 10 MG/2 ML VIAL IV SCH ×4 (01:31→17:54)
[2017-11-19] MEDS: AMPICILLIN/SULBACTAM 1,500 MG in SODIUM CHLORIDE 0.9% 100 ML IV SCH ×3 (01:31→18:35)
[2017-11-19] MEDS ORDERED: diphenhydrAMINE CAP 25 MG CAPSULE PO ONE (08:00)
[2017-11-19] MEDS ORDERED: DIAZEPAM 5 MG TABLET PO ONE (08:00)
[2017-11-19] MEDS: INSULIN LISPRO 100 UNIT/ML SUBCUT SCH ×4 (08:40→21:31)
[2017-11-19] MEDS: FERROUS SULFATE 325 MG TABLET PO SCH (08:41)
[2017-11-19] MEDS: TAMSULOSIN 0.4 MG CAPSULE PO SCH (08:41)
[2017-11-19] MEDS: PANTOPRAZOLE 40 MG TABLET PO SCH (08:41)
[2017-11-19] MEDS: amLODIPine 10 MG TABLET PO SCH (08:41)
[2017-11-19] MEDS: CARVEDILOL 25 MG TABLET PO SCH ×2 (08:41→21:30)
[2017-11-19] MEDS: ASPIRIN CHEW 81 MG TABLET PO SCH (08:41)
[2017-11-19] MEDS: ISOSORBIDE MONONITRATE 30 MG TABLET PO SCH ×2 (08:41→21:29)
[2017-11-19] MEDS: SULFAMETHOX/TRIMETHOPRIM 800-160 MG TABLET PO SCH ×2 (08:41→21:30)
[2017-11-19] MEDS: SILVER SULFADIAZINE 1% CREAM 25 GM TUBE TOP SCH (09:57)
[2017-11-19] MEDS: COLLAGENASE OINT 30 GM TUBE TOP SCH (09:57)
[2017-11-19] MEDS: SKIN HEALING OINT (AQUAPHOR) 50 GM TUBE TOP SCH (09:57)
[2017-11-19 10:45] LABS: Basophils % 0.2 % (0.0-0.8); Hematocrit 27.5 VOL% (42.0-52.0); Immature Granulocytes % 0.7 %; Lymphocytes # 0.5 10*3/uL (1.4-4.0); Lymphocytes % 3.9 % (21.2-54.2); Mean Corpuscular HGB Conc 32.7 GM/DL (32-36); Mean Corpuscular Hemoglobin 24 PG (27-34); Mean Corpuscular Volume 74.1 FL (87-102); Mean Platelet Volume 11.1 FL (9.6-12.0); Monocytes # 0.6 10*3/uL (0.11-0.8); Monocytes % 4.7 % (1.7-12.7); Neutrophils # 12.3 10*3/uL (1.4-7.4); Neutrophils % 90.5 % (38.7-73.9); Platelet Count 209 T/CUMM (130-400); Red Blood Count 3.71 MC/CUMM (3.8-5.5); White Blood Count 13.6 T/CUMM (4-12)
[2017-11-19 11:17] LABS: Anisocytosis 1+; Band Neutrophils 4 % (0-10); Lymphocytes 2 % (20-55); Poikilocytosis 1+; Segmented Neutrophils 94 % (50-85); Target Cells 1+; Total Cells Counted 100
[2017-11-19 11:18] LABS: Hypochromasia Slight; Platelet Estimate Normal
[2017-11-19 11:38] LABS: Calcium 7.8 MG/DL (8.5-10.1); Potassium 3.9 MMOL/L (3.5-5.1)
[2017-11-19] MEDS ORDERED: HEPARIN 5,000 UNIT/1 ML VIAL ONE ×2 (15:11→16:13)
[2017-11-19] MEDS ORDERED: NITROGLYCERIN DRIP 50 MG/250 ML BOTTLE IV ONE (16:14)
[2017-11-19] MEDS ORDERED: CLOPIDOGREL 300 MG TABLET ONE (16:54)
[2017-11-19] MEDS ORDERED: VANCOMYCIN INJ 750 MG in SODIUM CHLORIDE 0.9% 250 ML IV ONE (21:00)
[2017-11-19] MEDS: CITALOPRAM 20 MG TABLET PO SCH (21:30)
[2017-11-19] MEDS: ROSUVASTATIN 20 MG TABLET PO SCH (21:30)
[2017-11-19] MEDS: BACLOFEN 10 MG TABLET PO SCH (21:30)
[2017-11-20] MEDS: HYDROCORTISONE 100 MG VIAL IV SCH ×2 (00:55→08:41)
[2017-11-20] MEDS: METOCLOPRAMIDE 10 MG/2 ML VIAL IV SCH ×3 (00:55→11:41)
[2017-11-20] MEDS: AMPICILLIN/SULBACTAM 1,500 MG in SODIUM CHLORIDE 0.9% 100 ML IV SCH (06:26)
[2017-11-20 07:08] LABS: Basophils % 0.1 % (0.0-0.8); Hematocrit 27.8 VOL% (42.0-52.0); Hemoglobin 9.4 GM/DL (14.0-18.0); Immature Granulocytes % 0.8 %; Lymphocytes # 0.6 10*3/uL (1.4-4.0); Lymphocytes % 4.5 % (21.2-54.2); Mean Corpuscular HGB Conc 33.8 GM/DL (32-36); Mean Corpuscular Hemoglobin 24 PG (27-34); Mean Corpuscular Volume 71.8 FL (87-102); Mean Platelet Volume 10.7 FL (9.6-12.0); Monocytes # 0.7 10*3/uL (0.11-0.8); Monocytes % 5.7 % (1.7-12.7); Neutrophils # 11.3 10*3/uL (1.4-7.4); Neutrophils % 88.9 % (38.7-73.9); Platelet Count 158 T/CUMM (130-400); Red Blood Count 3.87 MC/CUMM (3.8-5.5); Red Cell Distribution Width 21.9 % (9.3-17.3); White Blood Count 12.7 T/CUMM (4-12)
[2017-11-20 07:29] LABS: Band Neutrophils 1 % (0-10); Giant Platelets Few; Hypochromasia 1+; Lymphocytes 9 % (20-55); Ovalocytes Slight; Platelet Estimate Normal; Segmented Neutrophils 86 % (50-85); Target Cells Few; Total Cells Counted 100
[2017-11-20 07:30] LABS: Microcytosis Slight
[2017-11-20 07:38] LABS: Potassium 3.8 MMOL/L (3.5-5.1); Prealbumin 11.1 MG/DL (20-40)
[2017-11-20] MEDS: INSULIN LISPRO 100 UNIT/ML SUBCUT SCH ×2 (07:44→11:41)
[2017-11-20] MEDS: ASPIRIN CHEW 81 MG TABLET PO SCH (08:43)
[2017-11-20] MEDS: TAMSULOSIN 0.4 MG CAPSULE PO SCH (08:43)
[2017-11-20] MEDS: SILVER SULFADIAZINE 1% CREAM 25 GM TUBE TOP SCH (08:44)
[2017-11-20] MEDS: PANTOPRAZOLE 40 MG TABLET PO SCH (08:44)
[2017-11-20] MEDS: ISOSORBIDE MONONITRATE 30 MG TABLET PO SCH (08:44)
[2017-11-20] MEDS: amLODIPine 10 MG TABLET PO SCH (08:44)
[2017-11-20] MEDS: SULFAMETHOX/TRIMETHOPRIM 800-160 MG TABLET PO SCH (08:44)
[2017-11-20] MEDS: SKIN HEALING OINT (AQUAPHOR) 50 GM TUBE TOP SCH (08:44)
[2017-11-20] MEDS: COLLAGENASE OINT 30 GM TUBE TOP SCH (08:44)
[2017-11-20] MEDS: FERROUS SULFATE 325 MG TABLET PO SCH (08:44)
[2017-11-20] MEDS: CARVEDILOL 25 MG TABLET PO SCH (08:44)
[2017-11-20 12:00] VITALS: BP 153/81
== END 2017-11-20 12:20 | DRG 853 ==
LOC: EDUNIT# → EDBD → N.ED 02:13 → SUATTDRO 07:27 → N.EDINP 07:27 → N.5E 09:29 → N.CC 11-14 23:50 → N.5E 11-18 14:50
PROVIDERS: ADMIT Internal Medicine; ATTEND Family Medicine

== ENCOUNTER 2018-01-22 19:50 | Inpatient (IN) ==
[2018-01-22 21:05] LABS: Basophils % 0.2 % (0.0-0.8); Eosinophils # 0.1 10*3/uL (0.0-0.87); Eosinophils % 0.7 % (0.00-10.9); Hematocrit 26.1 VOL% (42.0-52.0); Hemoglobin 7.8 GM/DL (14.0-18.0); Immature Granulocytes % 0.7 %; Immature Granulocytes Absolute 0.14 #; Lymphocytes # 0.9 10*3/uL (1.4-4.0); Lymphocytes % 4.9 % (21.2-54.2); Mean Corpuscular HGB Conc 29.9 GM/DL (32-36); Mean Corpuscular Hemoglobin 24 PG (27-34); Mean Corpuscular Volume 79.8 FL (87-102); Mean Platelet Volume 10.7 FL (9.6-12.0); Monocytes # 1.6 10*3/uL (0.11-0.8); Monocytes % 8.5 % (1.7-12.7); Neutrophils # 16.3 10*3/uL (1.4-7.4); Platelet Count 299 T/CUMM (130-400); Red Blood Count 3.27 MC/CUMM (3.8-5.5); Red Cell Distribution Width 19.9 % (9.3-17.3); White Blood Count 19.2 T/CUMM (4-12)
[2018-01-22 21:28] LABS: Lactic Acid 3.1 MMOL/L (0.4-2.0)
[2018-01-22 21:29] LABS: Alanine Aminotransferase 21 U/L (16-61); Albumin 2.1 G/DL (3.4-5.0); Alkaline Phosphatase 221 U/L (45-117); Aspartate Amino Transferase 64 U/L (0-37); Blood Urea Nitrogen 25 MG/DL (7-18); Calcium 7.5 MG/DL (8.5-10.1); Glucose 115 MG/DL (74-106); Osmolality,Calculated 266.7 MOS/KG (273-304); Potassium 3.8 MMOL/L (3.5-5.1); Sodium 131 MMOL/L (136-145); Total Protein 6.3 G/DL (6.4-8.3)
[2018-01-22 22:05] LABS: Band Neutrophils 3 % (0-10); Eosinophils 2 % (0-10); Lymphocytes 6 % (20-55); Segmented Neutrophils 86 % (50-85); Total Cells Counted 100
[2018-01-22 22:07] LABS: Anisocytosis 1+; Hypochromasia 1+; Ovalocytes 1+
[2018-01-22 22:08] LABS: Platelet Estimate Adequate
[2018-01-23 06:53] LABS: Basophils % 0.2 % (0.0-0.8); Eosinophils # 0.1 10*3/uL (0.0-0.87); Eosinophils % 0.4 % (0.00-10.9); Hematocrit 24.2 VOL% (42.0-52.0); Hemoglobin 7.5 GM/DL (14.0-18.0); Immature Granulocytes Absolute 0.22 #; Lymphocytes # 1.2 10*3/uL (1.4-4.0); Lymphocytes % 5.6 % (21.2-54.2); Mean Corpuscular Hemoglobin 24 PG (27-34); Mean Corpuscular Volume 76.8 FL (87-102); Mean Platelet Volume 10.9 FL (9.6-12.0); Monocytes # 2.9 10*3/uL (0.11-0.8); Monocytes % 13.2 % (1.7-12.7); Neutrophils # 17.5 10*3/uL (1.4-7.4); Neutrophils % 79.6 % (38.7-73.9); Platelet Count 276 T/CUMM (130-400); Red Blood Count 3.15 MC/CUMM (3.8-5.5); Red Cell Distribution Width 20.5 % (9.3-17.3)
[2018-01-23 07:19] LABS: Bilirubin,Total 1.1 MG/DL (0.2-1.0); Calcium 7.7 MG/DL (8.5-10.1); Osmolality,Calculated 269.2 MOS/KG (273-304); Potassium 3.1 MMOL/L (3.5-5.1); Total Protein 5.9 G/DL (6.4-8.3)
[2018-01-23 07:29] LABS: Band Neutrophils 4 % (0-10); Hypochromasia 1+; Lymphocytes 5 % (20-55); Ovalocytes Slight; Platelet Estimate Adequate; Segmented Neutrophils 82 % (50-85); Total Cells Counted 100
[2018-01-24 03:56] LABS: Calcium 7.5 MG/DL (8.5-10.1); Osmolality,Calculated 270.1 MOS/KG (273-304)
[2018-01-25 03:57] LABS: Basophils % 0.1 % (0.0-0.8); Eosinophils # 0.1 10*3/uL (0.0-0.87); Eosinophils % 0.6 % (0.00-10.9); Hematocrit 24.3 VOL% (42.0-52.0); Hemoglobin 7.5 GM/DL (14.0-18.0); Immature Granulocytes Absolute 0.66 #; Lymphocytes # 1.6 10*3/uL (1.4-4.0); Lymphocytes % 7.4 % (21.2-54.2); Mean Corpuscular HGB Conc 30.9 GM/DL (32-36); Mean Corpuscular Hemoglobin 24 PG (27-34); Mean Corpuscular Volume 76.2 FL (87-102); Mean Platelet Volume 11.1 FL (9.6-12.0); Monocytes # 2.9 10*3/uL (0.11-0.8); Monocytes % 13.2 % (1.7-12.7); NRBC # 0.02 10*3/uL; Neutrophils # 16.7 10*3/uL (1.4-7.4); Neutrophils % 75.7 % (38.7-73.9); Platelet Count 292 T/CUMM (130-400); Red Blood Count 3.19 MC/CUMM (3.8-5.5); Red Cell Distribution Width 20.7 % (9.3-17.3)
[2018-01-25 04:05] LABS: Calcium 7.4 MG/DL (8.5-10.1); Osmolality,Calculated 272.2 MOS/KG (273-304); Potassium 2.7 MMOL/L (3.5-5.1)
[2018-01-25 04:56] LABS: Band Neutrophils 3 % (0-10); Lymphocytes 6 % (20-55); Metamyelocytes 1 %; Segmented Neutrophils 86 % (50-85); Total Cells Counted 100
[2018-01-25 04:57] LABS: Acanthocytes 1+; Anisocytosis 1+; Hypochromasia 1+; Platelet Estimate Normal; Schistocytes Few; Target Cells Few; Tear Drop Cells Few
[2018-01-26 06:12] LABS: Basophils % 0.1 % (0.0-0.8); Eosinophils # 0.3 10*3/uL (0.0-0.87); Hematocrit 24.9 VOL% (42.0-52.0); Hemoglobin 7.8 GM/DL (14.0-18.0); Immature Granulocytes % 2.2 %; Immature Granulocytes Absolute 0.57 #; Lymphocytes # 1.5 10*3/uL (1.4-4.0); Lymphocytes % 5.8 % (21.2-54.2); Mean Corpuscular HGB Conc 31.3 GM/DL (32-36); Mean Corpuscular Hemoglobin 24 PG (27-34); Mean Corpuscular Volume 76.6 FL (87-102); Mean Platelet Volume 10.4 FL (9.6-12.0); Monocytes # 1.9 10*3/uL (0.11-0.8); Monocytes % 7.6 % (1.7-12.7); Neutrophils # 21.3 10*3/uL (1.4-7.4); Neutrophils % 83.3 % (38.7-73.9); Platelet Count 271 T/CUMM (130-400); Red Blood Count 3.25 MC/CUMM (3.8-5.5); Red Cell Distribution Width 20.9 % (9.3-17.3); White Blood Count 25.5 T/CUMM (4-12)
[2018-01-26 06:41] LABS: Band Neutrophils 1 % (0-10); Burr Cells Slight; Eosinophils 1 % (0-10); Hypochromasia 1+; Lymphocytes 7 % (20-55); Ovalocytes Slight; Platelet Estimate Adequate; Segmented Neutrophils 88 % (50-85); Total Cells Counted 100
[2018-01-26 06:44] LABS: Calcium 7.2 MG/DL (8.5-10.1); Osmolality,Calculated 275.1 MOS/KG (273-304); Potassium 3.2 MMOL/L (3.5-5.1)
[2018-01-26 09:23] LABS: Hepatitis A Ab IgM Quant 0.34 Index; Hepatitis A Ab IgM Result Negative (Negative); Hepatitis B Core IgM Quant 0.16 Index; Hepatitis B Core IgM Result Negative (Negative); Hepatitis B Surface Ag Quant < 0.10 Index; Hepatitis B Surface Ag Result Negative (Negative); Hepatitis C Virus Ab Quant 0.17 Index; Hepatitis C Virus Ab Result Negative (Negative)
[2018-01-27 06:54] LABS: Calcium 7.6 MG/DL (8.5-10.1); Osmolality,Calculated 271.1 MOS/KG (273-304); Potassium 4.1 MMOL/L (3.5-5.1)
[2018-01-27 08:44] LABS: Basophils % 0.2 % (0.0-0.8); Eosinophils # 0.1 10*3/uL (0.0-0.87); Eosinophils % 0.4 % (0.00-10.9); Hematocrit 24.8 VOL% (42.0-52.0); Hemoglobin 7.6 GM/DL (14.0-18.0); Immature Granulocytes % 2.9 %; Immature Granulocytes Absolute 0.73 #; Mean Corpuscular HGB Conc 30.6 GM/DL (32-36); Mean Corpuscular Hemoglobin 23 PG (27-34); Mean Corpuscular Volume 75.8 FL (87-102); Monocytes % 7.9 % (1.7-12.7); Neutrophils # 20.1 10*3/uL (1.4-7.4); Neutrophils % 80.6 % (38.7-73.9); Platelet Count 308 T/CUMM (130-400); Red Blood Count 3.27 MC/CUMM (3.8-5.5); Red Cell Distribution Width 21.1 % (9.3-17.3); White Blood Count 24.9 T/CUMM (4-12)
[2018-01-27 09:07] LABS: Band Neutrophils 1 % (0-10); Eosinophils 1 % (0-10); Hypochromasia 1+; Lymphocytes 9 % (20-55); Ovalocytes Slight; Platelet Estimate Adequate; Segmented Neutrophils 79 % (50-85); Total Cells Counted 100
[2018-01-27 14:16] LABS: ABG HCO3 22.7 MMOL/L (20-26); ABG Oxygen Saturation 99.4 % (95-100); ABG PCO2 35.9 MM HG (35-48); ABG PH 7.402 (7.35-7.45); Allen Test Positive; Pt O2 Delivery Device Ventilator
[2018-01-27 14:20] LABS: Basophils # 0.1 10*3/uL (0.0-0.2); Basophils % 0.2 % (0.0-0.8); Eosinophils # 0.1 10*3/uL (0.0-0.87); Eosinophils % 0.6 % (0.00-10.9); Hematocrit 24.6 VOL% (42.0-52.0); Hemoglobin 7.5 GM/DL (14.0-18.0); Immature Granulocytes % 6.3 %; Immature Granulocytes Absolute 1.45 #; Lymphocytes # 2.2 10*3/uL (1.4-4.0); Lymphocytes % 9.5 % (21.2-54.2); Mean Corpuscular HGB Conc 30.5 GM/DL (32-36); Mean Corpuscular Hemoglobin 24 PG (27-34); Mean Corpuscular Volume 77.8 FL (87-102); Mean Platelet Volume 10.8 FL (9.6-12.0); Monocytes % 4.5 % (1.7-12.7); Neutrophils % 78.9 % (38.7-73.9); Platelet Count 281 T/CUMM (130-400); Red Blood Count 3.16 MC/CUMM (3.8-5.5); Red Cell Distribution Width 21.2 % (9.3-17.3); White Blood Count 22.9 T/CUMM (4-12)
[2018-01-27 14:47] LABS: Band Neutrophils 2 % (0-10); Lymphocytes 9 % (20-55); Segmented Neutrophils 86 % (50-85); Total Cells Counted 100
[2018-01-27 14:49] LABS: Hypochromasia Slight; Troponin I Only 0.045 NG/ML (0.00-0.045)
[2018-01-27 14:50] LABS: Osmolality,Calculated 271.2 MOS/KG (273-304); Potassium 4.7 MMOL/L (3.5-5.1); Target Cells Few
[2018-01-27 14:51] LABS: Platelet Estimate Adequate
[2018-01-27 15:25] LABS: Lactic Acid 2.8 MMOL/L (0.4-2.0)
[2018-01-27 16:27] LABS: Blood Urea Nitrogen 26 MG/DL (7-18); Calcium 7.9 MG/DL (8.5-10.1); Glucose 92 MG/DL (74-106); Osmolality,Calculated 274.1 MOS/KG (273-304); Potassium 4.4 MMOL/L (3.5-5.1); Sodium 135 MMOL/L (136-145)
[2018-01-27 16:28] LABS: Troponin I Only 0.062 NG/ML (0.00-0.045)
[2018-01-27 23:41] LABS: ABG Base Excess -0.2 MMOL/L (-2.5-2.5); ABG HCO3 24.3 MMOL/L (20-26); ABG Oxygen Saturation 90.8 % (95-100); ABG PCO2 38.6 MM HG (35-48); ABG PH 7.416 (7.35-7.45); ABG PO2 67.9 MM HG (80-95); ABG TCO2 25.4 MMOL/L (23-27)
[2018-01-28 03:35] LABS: Basophils % 0.2 % (0.0-0.8); Hematocrit 24.9 VOL% (42.0-52.0); Hemoglobin 7.8 GM/DL (14.0-18.0); Immature Granulocytes Absolute 0.78 #; Lymphocytes # 1.2 10*3/uL (1.4-4.0); Lymphocytes % 4.6 % (21.2-54.2); Mean Corpuscular HGB Conc 31.3 GM/DL (32-36); Mean Corpuscular Hemoglobin 24 PG (27-34); Mean Platelet Volume 11.1 FL (9.6-12.0); Monocytes % 3.8 % (1.7-12.7); Neutrophils # 22.7 10*3/uL (1.4-7.4); Neutrophils % 88.4 % (38.7-73.9); Platelet Count 268 T/CUMM (130-400); Red Blood Count 3.32 MC/CUMM (3.8-5.5); Red Cell Distribution Width 21.4 % (9.3-17.3); White Blood Count 25.6 T/CUMM (4-12)
[2018-01-28 03:40] LABS: ABG Base Excess -1.4 MMOL/L (-2.5-2.5); ABG HCO3 22.4 MMOL/L (20-26); ABG Oxygen Saturation 99.4 % (95-100); ABG PCO2 33.4 MM HG (35-48); ABG PH 7.445 (7.35-7.45); ABG TCO2 23.5 MMOL/L (23-27)
[2018-01-28 04:03] LABS: Osmolality,Calculated 276.2 MOS/KG (273-304); Potassium 5.1 MMOL/L (3.5-5.1)
[2018-01-28 04:08] LABS: Gentamicin,Random 2.3 UG/ML; Vancomycin,Random 19.9 UG/ML
[2018-01-28 04:21] LABS: Lymphocytes 5 % (20-55); Platelet Estimate Adequate; Segmented Neutrophils 89 % (50-85); Total Cells Counted 100
[2018-01-28 04:22] LABS: Burr Cells Slight; Hypochromasia 1+; Ovalocytes Slight
[2018-01-29 03:47] LABS: Basophils % 0.1 % (0.0-0.8); Hematocrit 25.4 VOL% (42.0-52.0); Hemoglobin 8.3 GM/DL (14.0-18.0); Immature Granulocytes % 2.6 %; Immature Granulocytes Absolute 0.54 #; Lymphocytes # 0.9 10*3/uL (1.4-4.0); Lymphocytes % 4.2 % (21.2-54.2); Mean Corpuscular HGB Conc 32.7 GM/DL (32-36); Mean Corpuscular Hemoglobin 23 PG (27-34); Mean Corpuscular Volume 71.3 FL (87-102); Mean Platelet Volume 10.2 FL (9.6-12.0); Neutrophils % 88.1 % (38.7-73.9); Platelet Count 297 T/CUMM (130-400); Red Blood Count 3.56 MC/CUMM (3.8-5.5); Red Cell Distribution Width 21.5 % (9.3-17.3); White Blood Count 20.4 T/CUMM (4-12)
[2018-01-29 04:04] LABS: Calcium 7.7 MG/DL (8.5-10.1); Potassium 4.3 MMOL/L (3.5-5.1)
[2018-01-29 04:26] LABS: Burr Cells Slight; Hypochromasia 1+; Lymphocytes 3 % (20-55); Ovalocytes Slight; Platelet Estimate Adequate; Segmented Neutrophils 93 % (50-85); Total Cells Counted 100
[2018-01-29 04:46] LABS: ABG Base Excess 4.2 MMOL/L (-2.5-2.5); ABG HCO3 28.2 MMOL/L (20-26); ABG Oxygen Saturation 99.1 % (95-100); ABG PCO2 34.9 MM HG (35-48); ABG PH 7.502 (7.35-7.45); ABG TCO2 24.5 MMOL/L (23-27); Allen Test Positive; Pt O2 Delivery Device Ventilator
[2018-01-30 04:31] LABS: Basophils % 0.1 % (0.0-0.8); Eosinophils # 0.1 10*3/uL (0.0-0.87); Eosinophils % 0.5 % (0.00-10.9); Hematocrit 26.6 VOL% (42.0-52.0); Hemoglobin 8.2 GM/DL (14.0-18.0); Immature Granulocytes % 2.4 %; Immature Granulocytes Absolute 0.32 #; Lymphocytes % 7.6 % (21.2-54.2); Mean Corpuscular HGB Conc 30.8 GM/DL (32-36); Mean Corpuscular Hemoglobin 23 PG (27-34); Mean Corpuscular Volume 75.6 FL (87-102); Mean Platelet Volume 10.3 FL (9.6-12.0); Monocytes # 1.1 10*3/uL (0.11-0.8); Monocytes % 7.9 % (1.7-12.7); Neutrophils % 81.5 % (38.7-73.9); Platelet Count 269 T/CUMM (130-400); Red Blood Count 3.52 MC/CUMM (3.8-5.5); Red Cell Distribution Width 21.3 % (9.3-17.3); White Blood Count 13.5 T/CUMM (4-12)
[2018-01-30 04:55] LABS: ABG Base Excess 2.6 MMOL/L (-2.5-2.5); ABG HCO3 27.1 MMOL/L (20-26); ABG Oxygen Saturation 98.7 % (95-100); ABG PCO2 41.7 MM HG (35-48); ABG PH 7.431 (7.35-7.45); ABG TCO2 28.4 MMOL/L (23-27); Allen Test Positive
[2018-01-30 05:03] LABS: Calcium 7.6 MG/DL (8.5-10.1); Osmolality,Calculated 274.1 MOS/KG (273-304); Potassium 4.4 MMOL/L (3.5-5.1)
[2018-01-31 04:37] LABS: Calcium 7.7 MG/DL (8.5-10.1); Osmolality,Calculated 278.7 MOS/KG (273-304); Potassium 4.1 MMOL/L (3.5-5.1)
[2018-01-31 05:16] LABS: Basophils % 0.1 % (0.0-0.8); Eosinophils # 0.1 10*3/uL (0.0-0.87); Eosinophils % 0.4 % (0.00-10.9); Hematocrit 27.6 VOL% (42.0-52.0); Hemoglobin 8.2 GM/DL (14.0-18.0); Immature Granulocytes % 2.5 %; Immature Granulocytes Absolute 0.42 #; Lymphocytes # 1.1 10*3/uL (1.4-4.0); Lymphocytes % 6.5 % (21.2-54.2); Mean Corpuscular HGB Conc 29.7 GM/DL (32-36); Mean Corpuscular Hemoglobin 23 PG (27-34); Mean Corpuscular Volume 76.9 FL (87-102); Mean Platelet Volume 10.8 FL (9.6-12.0); Monocytes # 1.3 10*3/uL (0.11-0.8); Monocytes % 7.9 % (1.7-12.7); Neutrophils % 82.6 % (38.7-73.9); Platelet Count 271 T/CUMM (130-400); Red Blood Count 3.59 MC/CUMM (3.8-5.5); Red Cell Distribution Width 21.4 % (9.3-17.3); White Blood Count 16.9 T/CUMM (4-12)
[2018-02-01 04:19] LABS: Basophils % 0.1 % (0.0-0.8); Eosinophils # 0.1 10*3/uL (0.0-0.87); Eosinophils % 0.6 % (0.00-10.9); Hematocrit 25.8 VOL% (42.0-52.0); Hemoglobin 7.6 GM/DL (14.0-18.0); Immature Granulocytes % 1.5 %; Lymphocytes # 1.4 10*3/uL (1.4-4.0); Mean Corpuscular HGB Conc 29.5 GM/DL (32-36); Mean Corpuscular Hemoglobin 23 PG (27-34); Mean Corpuscular Volume 77.7 FL (87-102); Mean Platelet Volume 11.1 FL (9.6-12.0); Monocytes # 1.6 10*3/uL (0.11-0.8); Monocytes % 7.9 % (1.7-12.7); Neutrophils # 16.4 10*3/uL (1.4-7.4); Neutrophils % 82.9 % (38.7-73.9); Platelet Count 266 T/CUMM (130-400); Red Blood Count 3.32 MC/CUMM (3.8-5.5); Red Cell Distribution Width 21.8 % (9.3-17.3); White Blood Count 19.8 T/CUMM (4-12)
[2018-02-01 04:49] LABS: Calcium 7.5 MG/DL (8.5-10.1); Osmolality,Calculated 279.8 MOS/KG (273-304); Potassium 4.3 MMOL/L (3.5-5.1)
[2018-02-01 14:03] LABS: Troponin I Only 0.019 NG/ML (0.00-0.045)
[2018-02-02 04:34] LABS: Basophils % 0.2 % (0.0-0.8); Eosinophils # 0.1 10*3/uL (0.0-0.87); Eosinophils % 0.8 % (0.00-10.9); Hematocrit 26.8 VOL% (42.0-52.0); Hemoglobin 8.1 GM/DL (14.0-18.0); Immature Granulocytes % 1.5 %; Immature Granulocytes Absolute 0.28 #; Lymphocytes # 1.5 10*3/uL (1.4-4.0); Lymphocytes % 8.2 % (21.2-54.2); Mean Corpuscular HGB Conc 30.2 GM/DL (32-36); Mean Corpuscular Hemoglobin 23 PG (27-34); Mean Corpuscular Volume 76.6 FL (87-102); Mean Platelet Volume 11.5 FL (9.6-12.0); Monocytes # 1.4 10*3/uL (0.11-0.8); Monocytes % 7.5 % (1.7-12.7); Neutrophils # 15.2 10*3/uL (1.4-7.4); Neutrophils % 81.8 % (38.7-73.9); Platelet Count 288 T/CUMM (130-400); Red Cell Distribution Width 21.8 % (9.3-17.3); White Blood Count 18.5 T/CUMM (4-12)
[2018-02-02 04:53] LABS: Calcium 7.9 MG/DL (8.5-10.1); Osmolality,Calculated 272.4 MOS/KG (273-304); Potassium 4.7 MMOL/L (3.5-5.1)
[2018-02-03 06:59] LABS: Basophils % 0.2 % (0.0-0.8); Eosinophils # 0.1 10*3/uL (0.0-0.87); Eosinophils % 0.5 % (0.00-10.9); Hematocrit 25.7 VOL% (42.0-52.0); Hemoglobin 7.6 GM/DL (14.0-18.0); Immature Granulocytes % 1.1 %; Lymphocytes # 1.8 10*3/uL (1.4-4.0); Lymphocytes % 9.6 % (21.2-54.2); Mean Corpuscular HGB Conc 29.6 GM/DL (32-36); Mean Corpuscular Hemoglobin 23 PG (27-34); Mean Corpuscular Volume 78.6 FL (87-102); Mean Platelet Volume 11.2 FL (9.6-12.0); Monocytes # 1.7 10*3/uL (0.11-0.8); Monocytes % 9.4 % (1.7-12.7); Neutrophils # 14.7 10*3/uL (1.4-7.4); Neutrophils % 79.2 % (38.7-73.9); Platelet Count 276 T/CUMM (130-400); Red Blood Count 3.27 MC/CUMM (3.8-5.5); Red Cell Distribution Width 21.5 % (9.3-17.3); White Blood Count 18.5 T/CUMM (4-12)
[2018-02-03 07:26] LABS: Calcium 8.1 MG/DL (8.5-10.1); Osmolality,Calculated 270.2 MOS/KG (273-304); Potassium 4.5 MMOL/L (3.5-5.1)
[2018-02-03 21:22] LABS: Troponin I Only 0.277 NG/ML (0.00-0.045)
[2018-02-04 00:04] LABS: Troponin I Only 0.258 NG/ML (0.00-0.045)
[2018-02-04 04:09] LABS: Calcium 8.3 MG/DL (8.5-10.1); Osmolality,Calculated 264.8 MOS/KG (273-304); Potassium 4.9 MMOL/L (3.5-5.1)
[2018-02-04 04:29] LABS: Troponin I Only 0.177 NG/ML (0.00-0.045)
[2018-02-04 05:58] LABS: Troponin I Only 0.207 NG/ML (0.00-0.045)
[2018-02-04 07:50] LABS: Basophils % 0.1 % (0.0-0.8); Eosinophils # 0.1 10*3/uL (0.0-0.87); Eosinophils % 0.8 % (0.00-10.9); Hematocrit 26.1 VOL% (42.0-52.0); Hemoglobin 7.9 GM/DL (14.0-18.0); Immature Granulocytes % 1.2 %; Immature Granulocytes Absolute 0.17 #; Lymphocytes # 1.2 10*3/uL (1.4-4.0); Lymphocytes % 8.4 % (21.2-54.2); Mean Corpuscular HGB Conc 30.3 GM/DL (32-36); Mean Corpuscular Hemoglobin 24 PG (27-34); Mean Corpuscular Volume 77.9 FL (87-102); Mean Platelet Volume 11.6 FL (9.6-12.0); Monocytes # 1.6 10*3/uL (0.11-0.8); Neutrophils # 11.3 10*3/uL (1.4-7.4); Neutrophils % 78.5 % (38.7-73.9); Platelet Count 288 T/CUMM (130-400); Red Blood Count 3.35 MC/CUMM (3.8-5.5); Red Cell Distribution Width 21.7 % (9.3-17.3); White Blood Count 14.4 T/CUMM (4-12)
[2018-02-05 04:48] LABS: Basophils % 0.1 % (0.0-0.8); Eosinophils % 0.3 % (0.00-10.9); Hematocrit 27.4 VOL% (42.0-52.0); Hemoglobin 8.1 GM/DL (14.0-18.0); Immature Granulocytes Absolute 0.14 #; Lymphocytes # 1.1 10*3/uL (1.4-4.0); Lymphocytes % 7.7 % (21.2-54.2); Mean Corpuscular HGB Conc 29.6 GM/DL (32-36); Mean Corpuscular Hemoglobin 23 PG (27-34); Mean Corpuscular Volume 78.1 FL (87-102); Monocytes # 1.5 10*3/uL (0.11-0.8); Neutrophils # 11.7 10*3/uL (1.4-7.4); Neutrophils % 80.9 % (38.7-73.9); Platelet Count 194 T/CUMM (130-400); Red Blood Count 3.51 MC/CUMM (3.8-5.5); Red Cell Distribution Width 21.4 % (9.3-17.3); White Blood Count 14.5 T/CUMM (4-12)
[2018-02-05 05:04] LABS: Calcium 8.1 MG/DL (8.5-10.1); Osmolality,Calculated 268.2 MOS/KG (273-304); Potassium 4.4 MMOL/L (3.5-5.1)
[2018-02-05 05:26] LABS: Hypochromasia 1+; Lymphocytes 3 % (20-55); Ovalocytes Slight; Platelet Estimate Adequate; Segmented Neutrophils 90 % (50-85); Total Cells Counted 100
[2018-02-06 05:32] LABS: Basophils % 0.2 % (0.0-0.8); Eosinophils # 0.1 10*3/uL (0.0-0.87); Eosinophils % 0.4 % (0.00-10.9); Hematocrit 26.5 VOL% (42.0-52.0); Hemoglobin 8.1 GM/DL (14.0-18.0); Immature Granulocytes Absolute 0.14 #; Lymphocytes # 1.1 10*3/uL (1.4-4.0); Lymphocytes % 8.1 % (21.2-54.2); Mean Corpuscular HGB Conc 30.6 GM/DL (32-36); Mean Corpuscular Hemoglobin 24 PG (27-34); Mean Corpuscular Volume 78.4 FL (87-102); Mean Platelet Volume 11.5 FL (9.6-12.0); Monocytes # 1.1 10*3/uL (0.11-0.8); Monocytes % 8.5 % (1.7-12.7); Neutrophils % 81.8 % (38.7-73.9); Platelet Count 274 T/CUMM (130-400); Red Blood Count 3.38 MC/CUMM (3.8-5.5); Red Cell Distribution Width 21.5 % (9.3-17.3); White Blood Count 13.4 T/CUMM (4-12)
[2018-02-06 06:04] LABS: Calcium 8.1 MG/DL (8.5-10.1); Osmolality,Calculated 272.1 MOS/KG (273-304)
[2018-02-08 07:16] LABS: Basophils # 0.1 10*3/uL (0.0-0.2); Basophils % 0.4 % (0.0-0.8); Eosinophils # 0.1 10*3/uL (0.0-0.87); Eosinophils % 0.7 % (0.00-10.9); Hematocrit 26.8 VOL% (42.0-52.0); Hemoglobin 7.7 GM/DL (14.0-18.0); Immature Granulocytes % 0.7 %; Immature Granulocytes Absolute 0.09 #; Lymphocytes # 1.5 10*3/uL (1.4-4.0); Lymphocytes % 12.4 % (21.2-54.2); Mean Corpuscular HGB Conc 28.7 GM/DL (32-36); Mean Corpuscular Hemoglobin 23 PG (27-34); Mean Corpuscular Volume 81.2 FL (87-102); Mean Platelet Volume 10.4 FL (9.6-12.0); Monocytes % 8.2 % (1.7-12.7); Neutrophils # 9.5 10*3/uL (1.4-7.4); Neutrophils % 77.6 % (38.7-73.9); Platelet Count 273 T/CUMM (130-400); Red Cell Distribution Width 21.8 % (9.3-17.3); White Blood Count 12.2 T/CUMM (4-12)
[2018-02-08 07:41] LABS: Hypochromasia 1+; Ovalocytes Slight; Platelet Estimate Adequate
[2018-02-08 07:43] LABS: Calcium 7.8 MG/DL (8.5-10.1); Osmolality,Calculated 273.8 MOS/KG (273-304); Potassium 4.5 MMOL/L (3.5-5.1)
[2018-02-09 04:54] LABS: Basophils # 0.1 10*3/uL (0.0-0.2); Basophils % 0.4 % (0.0-0.8); Eosinophils # 0.1 10*3/uL (0.0-0.87); Eosinophils % 0.9 % (0.00-10.9); Hematocrit 26.1 VOL% (42.0-52.0); Hemoglobin 7.9 GM/DL (14.0-18.0); Immature Granulocytes % 0.7 %; Immature Granulocytes Absolute 0.09 #; Lymphocytes # 1.5 10*3/uL (1.4-4.0); Lymphocytes % 12.6 % (21.2-54.2); Mean Corpuscular HGB Conc 30.3 GM/DL (32-36); Mean Corpuscular Hemoglobin 24 PG (27-34); Mean Corpuscular Volume 79.3 FL (87-102); Mean Platelet Volume 11.1 FL (9.6-12.0); Monocytes % 8.5 % (1.7-12.7); Neutrophils # 9.4 10*3/uL (1.4-7.4); Neutrophils % 76.9 % (38.7-73.9); Platelet Count 286 T/CUMM (130-400); Red Blood Count 3.29 MC/CUMM (3.8-5.5); Red Cell Distribution Width 22.4 % (9.3-17.3); White Blood Count 12.2 T/CUMM (4-12)
[2018-02-09 05:12] LABS: Calcium 7.9 MG/DL (8.5-10.1); Osmolality,Calculated 277.7 MOS/KG (273-304)
[2018-02-09 05:21] LABS: Gentamicin,Random 1.9 UG/ML; Vancomycin,Random 20.1 UG/ML
[2018-02-09 05:22] LABS: Platelet Estimate Normal
[2018-02-09 05:23] LABS: Anisocytosis 2+; Hypochromasia Slight; Poikilocytosis 1+; Target Cells Few
[2018-02-10 06:54] LABS: Basophils % 0.3 % (0.0-0.8); Eosinophils % 0.1 % (0.00-10.9); Hematocrit 27.5 VOL% (42.0-52.0); Hemoglobin 8.2 GM/DL (14.0-18.0); Immature Granulocytes % 0.9 %; Immature Granulocytes Absolute 0.09 #; Lymphocytes # 1.2 10*3/uL (1.4-4.0); Lymphocytes % 11.9 % (21.2-54.2); Mean Corpuscular HGB Conc 29.8 GM/DL (32-36); Mean Corpuscular Hemoglobin 24 PG (27-34); Mean Corpuscular Volume 79.9 FL (87-102); Mean Platelet Volume 11.3 FL (9.6-12.0); Monocytes # 0.6 10*3/uL (0.11-0.8); Monocytes % 5.4 % (1.7-12.7); Neutrophils # 8.5 10*3/uL (1.4-7.4); Neutrophils % 81.4 % (38.7-73.9); Platelet Count 306 T/CUMM (130-400); Red Blood Count 3.44 MC/CUMM (3.8-5.5); Red Cell Distribution Width 22.3 % (9.3-17.3); White Blood Count 10.4 T/CUMM (4-12)
[2018-02-10 07:07] LABS: Calcium 7.8 MG/DL (8.5-10.1); Osmolality,Calculated 275.7 MOS/KG (273-304); Potassium 5.1 MMOL/L (3.5-5.1)
[2018-02-10 07:21] LABS: Hypochromasia 1+; Ovalocytes Slight; Platelet Estimate Adequate
[2018-02-11 06:15] LABS: Basophils % 0.1 % (0.0-0.8); Hematocrit 27.3 VOL% (42.0-52.0); Hemoglobin 8.1 GM/DL (14.0-18.0); Immature Granulocytes % 0.8 %; Immature Granulocytes Absolute 0.08 #; Lymphocytes # 0.9 10*3/uL (1.4-4.0); Lymphocytes % 9.4 % (21.2-54.2); Mean Corpuscular HGB Conc 29.7 GM/DL (32-36); Mean Corpuscular Hemoglobin 24 PG (27-34); Mean Corpuscular Volume 79.8 FL (87-102); Mean Platelet Volume 11.4 FL (9.6-12.0); Monocytes # 0.7 10*3/uL (0.11-0.8); Monocytes % 6.8 % (1.7-12.7); Neutrophils # 8.3 10*3/uL (1.4-7.4); Neutrophils % 82.9 % (38.7-73.9); Platelet Count 305 T/CUMM (130-400); Red Blood Count 3.42 MC/CUMM (3.8-5.5); Red Cell Distribution Width 22.3 % (9.3-17.3)
[2018-02-11 06:34] LABS: Giant Platelets Few; Hypochromasia 1+; Ovalocytes Slight; Platelet Estimate Adequate
[2018-02-11 06:40] LABS: Calcium 7.8 MG/DL (8.5-10.1); Osmolality,Calculated 281.7 MOS/KG (273-304); Potassium 5.6 MMOL/L (3.5-5.1)
[2018-02-11 14:30] VITALS: BP 151/86
== END 2018-02-11 15:15 | DRG 239 ==
LOC: EDBD → EDUNIT# → N.ED 19:50 → SUATTDRO 01-23 01:10 → N.EDINP 01-23 01:10 → N.5E 01-23 02:05 → N.ICU 01-27 15:09 → N.5E 02-02 17:06 → N.ICU 02-03 07:50 → N.3E 02-05 23:14
PROVIDERS: ATTEND Hospitalist